=== PATIENT | male | born 1960 | race Caucasian/White ===

== ENCOUNTER 2018-04-26 11:17 | Inpatient (IN) ==
[2018-04-26] MEDS ORDERED: THIAMINE 200 MG/2 ML VIAL IV STA (11:46)
[2018-04-26 12:40] LABS: Basophils % 0.6 % (0.0-0.8); Eosinophils % 0.6 % (0.00-10.9); Hematocrit 23.7 VOL% (42.0-52.0); Hemoglobin 7.1 GM/DL (14.0-18.0); Immature Granulocytes % 0.6 %; Immature Granulocytes Absolute 0.03 #; Lymphocytes # 0.7 10*3/uL (1.4-4.0); Lymphocytes % 14.2 % (21.2-54.2); Mean Corpuscular Hemoglobin 29 PG (27-34); Mean Corpuscular Volume 97.9 FL (87-102); Monocytes # 0.5 10*3/uL (0.11-0.8); Monocytes % 9.9 % (1.7-12.7); Neutrophils # 3.5 10*3/uL (1.4-7.4); Neutrophils % 74.1 % (38.7-73.9); Red Blood Count 2.42 MC/CUMM (3.8-5.5); Red Cell Distribution Width 20.6 % (9.3-17.3); White Blood Count 4.7 T/CUMM (4-12)
[2018-04-26 12:44] LABS: Platelet Count 28 T/CUMM (130-400)
[2018-04-26 12:48] LABS: INR 1.5; PT Patient Result 16.4 SECS; Partial Thromboplastin Time 31.5 SECS (0-40)
[2018-04-26 12:58] LABS: Apearance,Urine CLOUDY (Clear); Bacteria,Urine Many /HPF (Few); Bilirubin,Urine Negative (Negative); Blood, Urine Large mg/dL (Negative); Glucose,Urine (UA) 150 mg/dL (Negative); Ketones,Urine Negative (Negative); Mucus,Urine Occasional /LPF (Occasional); Nitrite,Urine Positive (Negative); Protein,Urine 100 MG/DL; RBC,Urine 101 /HPF (0-4); Squamous Epithelial Cell,Urine Occasional /HPF (0-10); Urine Color Amber (Yellow); Urine Specific Gravity 1.019 (1.001-1.035); Urine Urobilinogen < 2.0 EU/DL (0.2-1.0); WBC,Urine 348 /HPF (0-6)
[2018-04-26 13:04] LABS: Hypochromasia 1+
[2018-04-26 13:05] LABS: Acanthocytes Few; Anisocytosis 1+; Microcytosis 1+; Platelet Estimate Decreased; Polychromasia Slight
[2018-04-26 13:07] LABS: Albumin 2.2 G/DL (3.4-5.0); Bilirubin,Total 11.3 MG/DL (0.2-1.0); Calcium 7.9 MG/DL (8.5-10.1); Osmolality,Calculated 295.4 MOS/KG (273-304); Potassium 3.6 MMOL/L (3.5-5.1); Thyroid Stimulating Hormone 2.32 uIU/ml (0.358-3.74)
[2018-04-26 13:24] LABS: Barbiturates Screen,Urine Negative (Negative); Benzodiazepines Screen,Urine Positive (Negative); Cannabinoid Screen,Urine Negative (Negative); Opiate Screen,Urine Negative (Negative); Phencyclidine Screen,Urine Negative (Negative)
[2018-04-26] MEDS ORDERED: cefTRIAXone 2,000 MG in SODIUM CHLORIDE 0.9% 100 ML IV ONE (14:09)
[2018-04-26] MEDS ORDERED: MAGNESIUM SULF RIDER 2 GM in PREMIX 1 EACH IV STA (14:10)
[2018-04-26] MEDS ORDERED: SODIUM CHLORIDE 0.9% 100 ML IV ONE (14:22)
[2018-04-26] MEDS ORDERED: cefTRIAXone 1,000 MG VIAL ONE (14:22)
[2018-04-26 14:39] LABS: Lactic Acid 2.4 MMOL/L (0.4-2.0)
[2018-04-26] MEDS ORDERED: DEXTROSE 50% 25 GM/50 ML SYRINGE IV PRN (14:58)
[2018-04-26] MEDS ORDERED: GLUCAGON 1 MG VIAL IM PRN (14:58)
[2018-04-26] MEDS ORDERED: POTASSIUM CHLORIDE INJ 10 MEQ in DEXTROSE 5% LACTATED RINGERS 1,000 ML IV SCH (15:00)
[2018-04-26 15:39] LABS: % Iron Saturation 30.9 % (18-50)
[2018-04-26] MEDS ORDERED: SODIUM CHLORIDE 0.9% 1,000 ML IV PRN (16:03)
[2018-04-26] MEDS: INSULIN NPH 100 UNIT/ML SUBCUT SCH (18:35)
[2018-04-26] MEDS: THIAMINE 200 MG/2 ML VIAL IV SCH (18:35)
[2018-04-26] MEDS: INSULIN REGULAR 100 UNIT/ML SUBCUT SCH (18:35)
[2018-04-26] MEDS ORDERED: LACTULOSE 20 GM/30 ML UDCUP PO SCH (21:00)
[2018-04-26] MEDS ORDERED: MAGNESIUM SULF RIDER 4 GM in PREMIX 1 EACH IV PRN (22:10)
[2018-04-26] MEDS ORDERED: POTASSIUM CHLORIDE RIDER 10 MEQ in PREMIX 1 EACH IV PRN (22:11)
[2018-04-26] MEDS: LORazepam 2 MG/1 ML VIAL IV PRN (23:00)
[2018-04-26] MEDS: RIFAXIMIN 550 MG TABLET PO SCH (23:05)
[2018-04-26] MEDS: PANTOPRAZOLE 40 MG VIAL IV SCH (23:05)
[2018-04-26] MEDS: POTASSIUM CHLORIDE INJ 10 MEQ in LACTATED RINGERS 1,000 ML IV SCH (23:30)
[2018-04-27] MEDS: INSULIN REGULAR 100 UNIT/ML SUBCUT SCH ×4 (01:03→20:00)
[2018-04-27] MEDS: MORPHINE 4 MG/1 ML VIAL IV PRN ×2 (01:04→22:03)
[2018-04-27] MEDS ORDERED: SODIUM CHLORIDE 0.9% 500 ML IV ONE (03:04)
[2018-04-27] MEDS: INSULIN NPH 100 UNIT/ML SUBCUT SCH ×2 (03:16→16:15)
[2018-04-27 03:51] LABS: INR 1.5; PT Patient Result 16.6 SECS
[2018-04-27 03:58] LABS: Basophils % 0.7 % (0.0-0.8); Eosinophils # 0.1 10*3/uL (0.0-0.87); Eosinophils % 1.3 % (0.00-10.9); Hematocrit 25.4 VOL% (42.0-52.0); Hemoglobin 7.6 GM/DL (14.0-18.0); Immature Granulocytes % 1.3 %; Immature Granulocytes Absolute 0.07 #; Lymphocytes # 0.5 10*3/uL (1.4-4.0); Lymphocytes % 8.2 % (21.2-54.2); Mean Corpuscular HGB Conc 29.9 GM/DL (32-36); Mean Corpuscular Hemoglobin 30 PG (27-34); Mean Corpuscular Volume 98.8 FL (87-102); Monocytes # 0.3 10*3/uL (0.11-0.8); Monocytes % 5.8 % (1.7-12.7); Neutrophils # 4.5 10*3/uL (1.4-7.4); Neutrophils % 82.7 % (38.7-73.9); Red Blood Count 2.57 MC/CUMM (3.8-5.5); Red Cell Distribution Width 21.3 % (9.3-17.3); White Blood Count 5.5 T/CUMM (4-12)
[2018-04-27 04:13] LABS: Albumin 2.5 G/DL (3.4-5.0); Calcium 8.3 MG/DL (8.5-10.1); Potassium 3.6 MMOL/L (3.5-5.1); Total Protein 5.2 G/DL (6.4-8.3)
[2018-04-27 04:20] LABS: Platelet Count 25 T/CUMM (130-400)
[2018-04-27 04:29] LABS: Bilirubin,Total 13.2 MG/DL (0.2-1.0)
[2018-04-27 04:55] LABS: Anisocytosis 1+; Hypochromasia 1+; Microcytosis 1+
[2018-04-27 04:57] LABS: Acanthocytes Few; Platelet Estimate Decreased; Polychromasia Slight
[2018-04-27] MEDS: MAGNESIUM SULF RIDER 2 GM in PREMIX 1 EACH IV PRN (06:24)
[2018-04-27] MEDS: SPIRONOLACTONE 100 MG TABLET PO SCH ×2 (09:59→14:10)
[2018-04-27] MEDS: chlordiazePOXIDE 10 MG CAPSULE PO SCH ×4 (09:59→20:04)
[2018-04-27] MEDS: LACTULOSE 20 GM/30 ML UDCUP PO SCH ×5 (09:59→20:03)
[2018-04-27] MEDS: PANTOPRAZOLE 40 MG VIAL IV SCH ×2 (10:00→20:04)
[2018-04-27] MEDS: RIFAXIMIN 550 MG TABLET PO SCH ×3 (10:00→20:04)
[2018-04-27] MEDS: THIAMINE 200 MG/2 ML VIAL IV SCH (10:02)
[2018-04-27] MEDS: cefTRIAXone 1,000 MG in SYRINGE 1 EACH IV SCH (10:04)
[2018-04-27 11:44] LABS: Hepatitis A Ab IgM Quant 0.11 Index; Hepatitis A Ab IgM Result Negative (Negative); Hepatitis B Core IgM Quant < 0.05 Index; Hepatitis B Core IgM Result Negative (Negative); Hepatitis B Surface Ag Quant < 0.10 Index; Hepatitis B Surface Ag Result Negative (Negative); Hepatitis C Virus Ab Quant > 11.00 Index; Hepatitis C Virus Ab Result Positive (Negative)
[2018-04-27] MEDS: POTASSIUM CHLORIDE INJ 10 MEQ in LACTATED RINGERS 1,000 ML IV SCH (14:52)
[2018-04-27] MEDS ORDERED: INFLUENZA VIRUS VACCINE 0.5 ML SYRINGE IM ONE (17:49)
[2018-04-28] MEDS: LORazepam 2 MG/1 ML VIAL IV PRN
[2018-04-28] MEDS: LACTULOSE 20 GM/30 ML UDCUP PO SCH ×6 (01:28→21:32)
[2018-04-28] MEDS: INSULIN REGULAR 100 UNIT/ML SUBCUT SCH ×4 (01:28→17:26)
[2018-04-28] MEDS: POTASSIUM CHLORIDE INJ 10 MEQ in LACTATED RINGERS 1,000 ML IV SCH ×2 (03:39→17:21)
[2018-04-28] MEDS: INSULIN NPH 100 UNIT/ML SUBCUT SCH ×2 (05:06→15:43)
[2018-04-28 08:00] LABS: Basophils # 0.1 10*3/uL (0.0-0.2); Basophils % 1.2 % (0.0-0.8); Eosinophils # 0.1 10*3/uL (0.0-0.87); Eosinophils % 2.4 % (0.00-10.9); Hematocrit 25.5 VOL% (42.0-52.0); Hemoglobin 7.4 GM/DL (14.0-18.0); Immature Granulocytes % 1.6 %; Immature Granulocytes Absolute 0.09 #; Lymphocytes % 17.3 % (21.2-54.2); Mean Corpuscular Hemoglobin 30 PG (27-34); Mean Corpuscular Volume 102.8 FL (87-102); Monocytes # 0.6 10*3/uL (0.11-0.8); Monocytes % 10.1 % (1.7-12.7); Neutrophils # 3.9 10*3/uL (1.4-7.4); Neutrophils % 67.4 % (38.7-73.9); Red Blood Count 2.48 MC/CUMM (3.8-5.5); Red Cell Distribution Width 22.1 % (9.3-17.3); White Blood Count 5.7 T/CUMM (4-12)
[2018-04-28 08:03] LABS: Platelet Count 39 T/CUMM (130-400)
[2018-04-28 08:10] LABS: Calcium 8.1 MG/DL (8.5-10.1)
[2018-04-28] MEDS: SPIRONOLACTONE 100 MG TABLET PO SCH (08:18)
[2018-04-28 08:19] LABS: Albumin 2.2 G/DL (3.4-5.0); Bilirubin,Direct 4.76 MG/DL (0.0-0.20); Bilirubin,Indirect 5.8 MG/DL (0.0-1.0); Bilirubin,Total 10.6 MG/DL (0.2-1.0); Total Protein 4.9 G/DL (6.4-8.3)
[2018-04-28] MEDS: THIAMINE 200 MG/2 ML VIAL IV SCH (08:19)
[2018-04-28] MEDS: PANTOPRAZOLE 40 MG VIAL IV SCH ×2 (08:19→21:31)
[2018-04-28] MEDS: cefTRIAXone 1,000 MG in SYRINGE 1 EACH IV SCH (08:20)
[2018-04-28] MEDS: RIFAXIMIN 550 MG TABLET PO SCH ×2 (08:20→21:32)
[2018-04-28 08:22] LABS: Hypochromasia 1+; Microcytosis 1+; Platelet Estimate Decreased
[2018-04-28] MEDS: chlordiazePOXIDE 10 MG CAPSULE PO SCH ×3 (09:22→21:32)
[2018-04-28] MEDS: LEVOFLOXACIN 500 MG TABLET PO SCH (15:39)
[2018-04-28] MEDS ORDERED: PHENYLEPHRINE DRIP 40 MG/250 ML PREMIX IV PRN (17:23)
[2018-04-29] MEDS: INSULIN REGULAR 100 UNIT/ML SUBCUT SCH ×4 (00:28→18:42)
[2018-04-29] MEDS: LACTULOSE 20 GM/30 ML UDCUP PO SCH ×6 (00:33→21:05)
[2018-04-29] MEDS: INSULIN NPH 100 UNIT/ML SUBCUT SCH ×2 (02:40→15:11)
[2018-04-29 06:20] LABS: Basophils # 0.1 10*3/uL (0.0-0.2); Basophils % 1.2 % (0.0-0.8); Eosinophils # 0.1 10*3/uL (0.0-0.87); Eosinophils % 2.2 % (0.00-10.9); Hematocrit 24.4 VOL% (42.0-52.0); Hemoglobin 7.4 GM/DL (14.0-18.0); Immature Granulocytes % 1.8 %; Immature Granulocytes Absolute 0.09 #; Lymphocytes % 20.2 % (21.2-54.2); Mean Corpuscular HGB Conc 30.3 GM/DL (32-36); Mean Corpuscular Hemoglobin 30 PG (27-34); Mean Corpuscular Volume 97.6 FL (87-102); Monocytes # 0.6 10*3/uL (0.11-0.8); Neutrophils # 3.1 10*3/uL (1.4-7.4); Neutrophils % 62.6 % (38.7-73.9); Platelet Count 40 T/CUMM (130-400)
[2018-04-29 06:42] LABS: Calcium 8.2 MG/DL (8.5-10.1); Osmolality,Calculated 277.4 MOS/KG (273-304); Potassium 3.9 MMOL/L (3.5-5.1)
[2018-04-29 06:46] LABS: Hypochromasia 1+; Microcytosis Slight; Ovalocytes Slight; Platelet Estimate Decreased
[2018-04-29 07:16] LABS: Albumin 2.3 G/DL (3.4-5.0); Bilirubin,Direct 4.5 MG/DL (0.0-0.20); Bilirubin,Indirect 5.3 MG/DL (0.0-1.0); Bilirubin,Total 9.8 MG/DL (0.2-1.0); Total Protein 4.9 G/DL (6.4-8.3)
[2018-04-29] MEDS: POTASSIUM CHLORIDE INJ 10 MEQ in LACTATED RINGERS 1,000 ML IV SCH ×2 (08:17)
[2018-04-29] MEDS: PANTOPRAZOLE 40 MG VIAL IV SCH ×2 (08:43→21:13)
[2018-04-29] MEDS: RIFAXIMIN 550 MG TABLET PO SCH ×2 (08:44→21:13)
[2018-04-29] MEDS: SPIRONOLACTONE 100 MG TABLET PO SCH (08:44)
[2018-04-29] MEDS: chlordiazePOXIDE 10 MG CAPSULE PO SCH ×3 (08:44→21:13)
[2018-04-29] MEDS: THIAMINE 200 MG/2 ML VIAL IV SCH (08:44)
[2018-04-29] MEDS: cefTRIAXone 1,000 MG in SYRINGE 1 EACH IV SCH (08:45)
[2018-04-29] MEDS: LEVOFLOXACIN 500 MG TABLET PO SCH (10:02)
[2018-04-29] MEDS: MORPHINE 4 MG/1 ML VIAL IV PRN (18:53)
[2018-04-30] MEDS: INSULIN REGULAR 100 UNIT/ML SUBCUT SCH ×4 (00:20→17:35)
[2018-04-30] MEDS: LACTULOSE 20 GM/30 ML UDCUP PO SCH ×6 (00:20→20:26)
[2018-04-30] MEDS: INSULIN NPH 100 UNIT/ML SUBCUT SCH ×2 (03:45→14:48)
[2018-04-30 04:10] LABS: Basophils # 0.1 10*3/uL (0.0-0.2); Basophils % 1.1 % (0.0-0.8); Eosinophils # 0.1 10*3/uL (0.0-0.87); Eosinophils % 2.1 % (0.00-10.9); Hematocrit 24.9 VOL% (42.0-52.0); Hemoglobin 7.7 GM/DL (14.0-18.0); Immature Granulocytes % 2.9 %; Immature Granulocytes Absolute 0.15 #; Lymphocytes # 1.3 10*3/uL (1.4-4.0); Lymphocytes % 25.1 % (21.2-54.2); Mean Corpuscular HGB Conc 30.9 GM/DL (32-36); Mean Corpuscular Hemoglobin 30 PG (27-34); Mean Corpuscular Volume 97.3 FL (87-102); Mean Platelet Volume 11.4 FL (9.6-12.0); Monocytes # 0.7 10*3/uL (0.11-0.8); Monocytes % 12.6 % (1.7-12.7); Neutrophils # 2.9 10*3/uL (1.4-7.4); Neutrophils % 56.2 % (38.7-73.9); Red Blood Count 2.56 MC/CUMM (3.8-5.5); Red Cell Distribution Width 22.2 % (9.3-17.3); White Blood Count 5.2 T/CUMM (4-12)
[2018-04-30 04:14] LABS: Platelet Count 44 T/CUMM (130-400)
[2018-04-30 04:34] LABS: Albumin 2.1 G/DL (3.4-5.0); Osmolality,Calculated 279.5 MOS/KG (273-304); Potassium 4.1 MMOL/L (3.5-5.1); Total Protein 4.9 G/DL (6.4-8.3)
[2018-04-30] MEDS: POTASSIUM CHLORIDE INJ 10 MEQ in LACTATED RINGERS 1,000 ML IV SCH ×2 (05:29→19:41)
[2018-04-30] MEDS: SPIRONOLACTONE 100 MG TABLET PO SCH (08:12)
[2018-04-30] MEDS: chlordiazePOXIDE 10 MG CAPSULE PO SCH ×3 (08:12→20:29)
[2018-04-30] MEDS: LEVOFLOXACIN 500 MG TABLET PO SCH (08:12)
[2018-04-30] MEDS: RIFAXIMIN 550 MG TABLET PO SCH ×2 (08:12→20:25)
[2018-04-30] MEDS: PANTOPRAZOLE 40 MG VIAL IV SCH ×2 (08:12→20:24)
[2018-04-30] MEDS: cefTRIAXone 1,000 MG in SYRINGE 1 EACH IV SCH (08:12)
[2018-04-30] MEDS: MORPHINE 4 MG/1 ML VIAL IV PRN ×2 (09:40→20:25)
[2018-05-01] MEDS: LACTULOSE 20 GM/30 ML UDCUP PO SCH ×6 (00:09→20:39)
[2018-05-01] MEDS: MORPHINE 4 MG/1 ML VIAL IV PRN ×2 (00:09→03:52)
[2018-05-01] MEDS: INSULIN REGULAR 100 UNIT/ML SUBCUT SCH ×5 (00:10→23:30)
[2018-05-01] MEDS: INSULIN NPH 100 UNIT/ML SUBCUT SCH ×2 (03:46→19:17)
[2018-05-01] MEDS: SPIRONOLACTONE 100 MG TABLET PO SCH (09:53)
[2018-05-01] MEDS: RIFAXIMIN 550 MG TABLET PO SCH ×2 (09:54→20:39)
[2018-05-01] MEDS: PANTOPRAZOLE 40 MG VIAL IV SCH ×2 (09:54→20:39)
[2018-05-01] MEDS: chlordiazePOXIDE 10 MG CAPSULE PO SCH ×3 (09:54→20:39)
[2018-05-01] MEDS: LEVOFLOXACIN 500 MG TABLET PO SCH (09:54)
[2018-05-01] MEDS: NADOLOL 40 MG TABLET PO SCH (13:15)
[2018-05-01] MEDS: SUCRALFATE 1 GM TABLET PO SCH ×3 (13:15→23:30)
[2018-05-01] MEDS: LORazepam 2 MG/1 ML VIAL IV PRN (16:15)
[2018-05-02] MEDS: MORPHINE 4 MG/1 ML VIAL IV PRN ×3 (00:36→18:30)
[2018-05-02] MEDS: LACTULOSE 20 GM/30 ML UDCUP PO SCH ×6 (00:37→21:11)
[2018-05-02] MEDS: INSULIN NPH 100 UNIT/ML SUBCUT SCH ×2 (03:37→14:22)
[2018-05-02] MEDS: INSULIN REGULAR 100 UNIT/ML SUBCUT SCH ×3 (05:53→17:28)
[2018-05-02] MEDS: SUCRALFATE 1 GM TABLET PO SCH ×3 (05:54→17:28)
[2018-05-02 06:07] LABS: Albumin 2.2 G/DL (3.4-5.0); Bilirubin,Total 10.7 MG/DL (0.2-1.0); Calcium 8.1 MG/DL (8.5-10.1); Osmolality,Calculated 273.8 MOS/KG (273-304); Potassium 4.5 MMOL/L (3.5-5.1); Total Protein 4.9 G/DL (6.4-8.3)
[2018-05-02 06:15] LABS: Basophils # 0.1 10*3/uL (0.0-0.2); Basophils % 0.8 % (0.0-0.8); Eosinophils # 0.1 10*3/uL (0.0-0.87); Eosinophils % 1.5 % (0.00-10.9); Hemoglobin 7.4 GM/DL (14.0-18.0); Immature Granulocytes % 1.8 %; Immature Granulocytes Absolute 0.13 #; Lymphocytes # 1.1 10*3/uL (1.4-4.0); Lymphocytes % 14.4 % (21.2-54.2); Mean Corpuscular HGB Conc 30.8 GM/DL (32-36); Mean Corpuscular Hemoglobin 30 PG (27-34); Mean Corpuscular Volume 97.2 FL (87-102); Mean Platelet Volume 11.1 FL (9.6-12.0); Monocytes # 0.6 10*3/uL (0.11-0.8); Monocytes % 8.7 % (1.7-12.7); Neutrophils # 5.4 10*3/uL (1.4-7.4); Neutrophils % 72.8 % (38.7-73.9); Red Blood Count 2.47 MC/CUMM (3.8-5.5); Red Cell Distribution Width 22.1 % (9.3-17.3); White Blood Count 7.4 T/CUMM (4-12)
[2018-05-02 06:38] LABS: Platelet Count 33 T/CUMM (130-400)
[2018-05-02] MEDS: PANTOPRAZOLE 40 MG VIAL IV SCH ×2 (08:14→21:11)
[2018-05-02] MEDS: RIFAXIMIN 550 MG TABLET PO SCH ×2 (08:14→21:11)
[2018-05-02] MEDS: LEVOFLOXACIN 500 MG TABLET PO SCH (08:14)
[2018-05-02] MEDS: SPIRONOLACTONE 100 MG TABLET PO SCH (08:14)
[2018-05-02] MEDS: chlordiazePOXIDE 10 MG CAPSULE PO SCH ×3 (08:35→21:11)
[2018-05-02] MEDS: NADOLOL 40 MG TABLET PO SCH (08:35)
[2018-05-02] MEDS ORDERED: METHYL SALICYLATE 60 ML BOTTLE TOP ONE (09:00)
[2018-05-02] MEDS: POTASSIUM CHLORIDE INJ 10 MEQ in LACTATED RINGERS 1,000 ML IV SCH (09:47)
[2018-05-02] MEDS: LORazepam 2 MG/1 ML VIAL IV PRN (21:24)
[2018-05-03] MEDS: LACTULOSE 20 GM/30 ML UDCUP PO SCH ×6 (00:14→20:47)
[2018-05-03] MEDS: INSULIN REGULAR 100 UNIT/ML SUBCUT SCH ×4 (00:14→17:28)
[2018-05-03] MEDS: SUCRALFATE 1 GM TABLET PO SCH ×4 (00:14→17:28)
[2018-05-03] MEDS: MORPHINE 4 MG/1 ML VIAL IV PRN ×3 (02:55→20:47)
[2018-05-03] MEDS: INSULIN NPH 100 UNIT/ML SUBCUT SCH ×2 (02:55→16:08)
[2018-05-03 06:33] LABS: Basophils # 0.1 10*3/uL (0.0-0.2); Basophils % 1.5 % (0.0-0.8); Eosinophils # 0.2 10*3/uL (0.0-0.87); Eosinophils % 3.5 % (0.00-10.9); Hematocrit 24.9 VOL% (42.0-52.0); Hemoglobin 7.7 GM/DL (14.0-18.0); Immature Granulocytes % 3.7 %; Immature Granulocytes Absolute 0.22 #; Lymphocytes # 1.4 10*3/uL (1.4-4.0); Mean Corpuscular HGB Conc 30.9 GM/DL (32-36); Mean Corpuscular Hemoglobin 30 PG (27-34); Mean Corpuscular Volume 97.6 FL (87-102); Mean Platelet Volume 9.9 FL (9.6-12.0); Monocytes # 0.7 10*3/uL (0.11-0.8); Neutrophils # 3.4 10*3/uL (1.4-7.4); Neutrophils % 57.3 % (38.7-73.9); Red Blood Count 2.55 MC/CUMM (3.8-5.5)
[2018-05-03 06:38] LABS: Platelet Count 36 T/CUMM (130-400)
[2018-05-03 06:55] LABS: Bilirubin,Total 7.8 MG/DL (0.2-1.0); Calcium 8.1 MG/DL (8.5-10.1); Osmolality,Calculated 271.7 MOS/KG (273-304); Potassium 4.3 MMOL/L (3.5-5.1)
[2018-05-03] MEDS: PANTOPRAZOLE 40 MG VIAL IV SCH ×2 (08:52→20:47)
[2018-05-03] MEDS: NADOLOL 40 MG TABLET PO SCH (08:57)
[2018-05-03] MEDS: LEVOFLOXACIN 500 MG TABLET PO SCH (08:58)
[2018-05-03] MEDS: RIFAXIMIN 550 MG TABLET PO SCH ×2 (08:58→20:46)
[2018-05-03] MEDS: SPIRONOLACTONE 100 MG TABLET PO SCH (08:58)
[2018-05-03] MEDS: chlordiazePOXIDE 10 MG CAPSULE PO SCH ×3 (08:58→20:46)
[2018-05-03 10:06] LABS: Band Neutrophils 1 % (0-10); Lymphocytes 21 % (20-55); Segmented Neutrophils 75 % (50-85); Total Cells Counted 100
[2018-05-03 10:07] LABS: Hypochromasia 1+; Ovalocytes Slight; Platelet Estimate Decreased; Polychromasia Few; Schistocytes Few
[2018-05-04] MEDS: SUCRALFATE 1 GM TABLET PO SCH ×4 (00:37→18:05)
[2018-05-04] MEDS: LACTULOSE 20 GM/30 ML UDCUP PO SCH ×6 (00:37→22:42)
[2018-05-04] MEDS: MORPHINE 4 MG/1 ML VIAL IV PRN ×5 (00:37→22:57)
[2018-05-04] MEDS: INSULIN REGULAR 100 UNIT/ML SUBCUT SCH ×4 (01:06→19:22)
[2018-05-04] MEDS: INSULIN NPH 100 UNIT/ML SUBCUT SCH ×2 (03:17→15:44)
[2018-05-04 05:09] LABS: Basophils # 0.1 10*3/uL (0.0-0.2); Basophils % 1.4 % (0.0-0.8); Eosinophils # 0.1 10*3/uL (0.0-0.87); Eosinophils % 2.8 % (0.00-10.9); Hematocrit 25.2 VOL% (42.0-52.0); Hemoglobin 7.8 GM/DL (14.0-18.0); Immature Granulocytes Absolute 0.15 #; Lymphocytes # 1.6 10*3/uL (1.4-4.0); Mean Corpuscular Hemoglobin 30 PG (27-34); Mean Corpuscular Volume 97.7 FL (87-102); Monocytes # 0.6 10*3/uL (0.11-0.8); Neutrophils # 2.5 10*3/uL (1.4-7.4); Neutrophils % 49.8 % (38.7-73.9); Red Blood Count 2.58 MC/CUMM (3.8-5.5); Red Cell Distribution Width 21.2 % (9.3-17.3)
[2018-05-04 05:45] LABS: Platelet Count 42 T/CUMM (130-400)
[2018-05-04 06:41] LABS: Albumin 1.9 G/DL (3.4-5.0); Bilirubin,Direct 3.83 MG/DL (0.0-0.20); Bilirubin,Indirect 4.2 MG/DL (0.0-1.0); Calcium 7.9 MG/DL (8.5-10.1); Osmolality,Calculated 274.8 MOS/KG (273-304); Potassium 4.4 MMOL/L (3.5-5.1); Total Protein 4.8 G/DL (6.4-8.3)
[2018-05-04 07:42] LABS: Band Neutrophils 2 % (0-10); Eosinophils 5 % (0-10); Lymphocytes 21 % (20-55); Metamyelocytes 1 %; Myelocytes 1 %; Segmented Neutrophils 61 % (50-85)
[2018-05-04 07:43] LABS: Hypochromasia 1+; Platelet Estimate Decreased
[2018-05-04 07:44] LABS: Total Cells Counted 100
[2018-05-04] MEDS: LORazepam 2 MG/1 ML VIAL IV PRN (07:50)
[2018-05-04] MEDS: LEVOFLOXACIN 500 MG TABLET PO SCH (08:29)
[2018-05-04] MEDS: NADOLOL 40 MG TABLET PO SCH (08:29)
[2018-05-04] MEDS: RIFAXIMIN 550 MG TABLET PO SCH ×2 (08:29→22:42)
[2018-05-04] MEDS: PANTOPRAZOLE 40 MG VIAL IV SCH ×2 (08:29→22:43)
[2018-05-04] MEDS: SPIRONOLACTONE 100 MG TABLET PO SCH (08:33)
[2018-05-04] MEDS: MAGNESIUM SULF RIDER 2 GM in PREMIX 1 EACH IV PRN (08:35)
[2018-05-04] MEDS: chlordiazePOXIDE 10 MG CAPSULE PO SCH ×2 (10:38→15:44)
[2018-05-05] MEDS: LACTULOSE 20 GM/30 ML UDCUP PO SCH ×7 (01:08→20:56)
[2018-05-05] MEDS: SUCRALFATE 1 GM TABLET PO SCH ×4 (01:08→18:45)
[2018-05-05] MEDS: INSULIN REGULAR 100 UNIT/ML SUBCUT SCH ×5 (01:35→22:44)
[2018-05-05] MEDS: INSULIN NPH 100 UNIT/ML SUBCUT SCH ×2 (03:01→16:44)
[2018-05-05 06:33] LABS: Basophils # 0.1 10*3/uL (0.0-0.2); Basophils % 1.2 % (0.0-0.8); Eosinophils # 0.1 10*3/uL (0.0-0.87); Eosinophils % 1.7 % (0.00-10.9); Hematocrit 27.4 VOL% (42.0-52.0); Hemoglobin 8.7 GM/DL (14.0-18.0); Immature Granulocytes % 1.5 %; Immature Granulocytes Absolute 0.06 #; Lymphocytes # 1.1 10*3/uL (1.4-4.0); Mean Corpuscular HGB Conc 31.8 GM/DL (32-36); Mean Corpuscular Hemoglobin 30 PG (27-34); Mean Corpuscular Volume 95.5 FL (87-102); Mean Platelet Volume 12.4 FL (9.6-12.0); Monocytes # 0.4 10*3/uL (0.11-0.8); Monocytes % 10.4 % (1.7-12.7); Neutrophils # 2.3 10*3/uL (1.4-7.4); Neutrophils % 57.2 % (38.7-73.9); Platelet Count 43 T/CUMM (130-400); Red Blood Count 2.87 MC/CUMM (3.8-5.5); Red Cell Distribution Width 20.6 % (9.3-17.3)
[2018-05-05 06:50] LABS: Alanine Aminotransferase 18 U/L (16-61); Alkaline Phosphatase 145 U/L (45-117); Aspartate Amino Transferase 56 U/L (0-37); Bilirubin,Indirect 5.7 MG/DL (0.0-1.0); Blood Urea Nitrogen 7 MG/DL (7-18); Calcium 8.4 MG/DL (8.5-10.1); Glucose 105 MG/DL (74-106); Osmolality,Calculated 272.7 MOS/KG (273-304); Potassium 4.6 MMOL/L (3.5-5.1); Sodium 138 MMOL/L (136-145); Total Protein 4.9 G/DL (6.4-8.3)
[2018-05-05 06:51] LABS: Ammonia < 10 UMOL/L (11-32)
[2018-05-05 06:57] LABS: Band Neutrophils 1 % (0-10); Eosinophils 3 % (0-10); Hypochromasia 1+; Lymphocytes 29 % (20-55); Ovalocytes Slight; Platelet Estimate Decreased; Segmented Neutrophils 60 % (50-85); Total Cells Counted 100
[2018-05-05] MEDS: PANTOPRAZOLE 40 MG VIAL IV SCH ×2 (10:08→20:55)
[2018-05-05] MEDS: LEVOFLOXACIN 500 MG TABLET PO SCH (10:09)
[2018-05-05] MEDS: NADOLOL 40 MG TABLET PO SCH (10:09)
[2018-05-05] MEDS: RIFAXIMIN 550 MG TABLET PO SCH ×2 (10:10→20:56)
[2018-05-05] MEDS: SPIRONOLACTONE 100 MG TABLET PO SCH (10:10)
[2018-05-05] MEDS: MAGNESIUM SULF RIDER 2 GM in PREMIX 1 EACH IV PRN (12:38)
[2018-05-05] MEDS: traMADol 50 MG TABLET PO PRN (13:51)
[2018-05-05] MEDS: MORPHINE 4 MG/1 ML VIAL IV PRN (22:54)
[2018-05-06] MEDS ORDERED: LORazepam 2 MG/1 ML VIAL IV ONE (00:07)
[2018-05-06] MEDS: SUCRALFATE 1 GM TABLET PO SCH ×4 (00:42→17:20)
[2018-05-06] MEDS: INSULIN REGULAR 100 UNIT/ML SUBCUT SCH ×5 (01:42→20:52)
[2018-05-06] MEDS: INSULIN NPH 100 UNIT/ML SUBCUT SCH ×2 (02:01→16:28)
[2018-05-06] MEDS: MORPHINE 4 MG/1 ML VIAL IV PRN ×2 (04:36→20:52)
[2018-05-06] MEDS: LACTULOSE 20 GM/30 ML UDCUP PO SCH ×4 (04:37→20:51)
[2018-05-06 05:28] LABS: Basophils # 0.1 10*3/uL (0.0-0.2); Basophils % 1.6 % (0.0-0.8); Eosinophils # 0.1 10*3/uL (0.0-0.87); Eosinophils % 2.4 % (0.00-10.9); Hematocrit 25.3 VOL% (42.0-52.0); Hemoglobin 7.8 GM/DL (14.0-18.0); Immature Granulocytes % 1.6 %; Immature Granulocytes Absolute 0.06 #; Lymphocytes # 1.3 10*3/uL (1.4-4.0); Lymphocytes % 35.3 % (21.2-54.2); Mean Corpuscular HGB Conc 30.8 GM/DL (32-36); Mean Corpuscular Hemoglobin 30 PG (27-34); Mean Corpuscular Volume 98.4 FL (87-102); Mean Platelet Volume 11.2 FL (9.6-12.0); Monocytes # 0.5 10*3/uL (0.11-0.8); Monocytes % 14.4 % (1.7-12.7); Neutrophils # 1.7 10*3/uL (1.4-7.4); Neutrophils % 44.7 % (38.7-73.9); Platelet Count 40 T/CUMM (130-400); Red Blood Count 2.57 MC/CUMM (3.8-5.5); Red Cell Distribution Width 20.3 % (9.3-17.3); White Blood Count 3.7 T/CUMM (4-12)
[2018-05-06 05:42] LABS: Calcium 7.8 MG/DL (8.5-10.1); Osmolality,Calculated 279.4 MOS/KG (273-304)
[2018-05-06 05:53] LABS: Anisocytosis 1+; Hypochromasia 1+; Platelet Estimate Decreased
[2018-05-06] MEDS: PANTOPRAZOLE 40 MG VIAL IV SCH ×2 (08:47→20:51)
[2018-05-06] MEDS: RIFAXIMIN 550 MG TABLET PO SCH ×2 (08:54→20:51)
[2018-05-06] MEDS: MAGNESIUM SULF RIDER 2 GM in PREMIX 1 EACH IV PRN (08:55)
[2018-05-06] MEDS: NADOLOL 40 MG TABLET PO SCH (09:46)
[2018-05-06] MEDS: SPIRONOLACTONE 100 MG TABLET PO SCH (12:11)
[2018-05-06] MEDS: BACITRACIN OINT 0.9 GM PACK TOP SCH (16:29)
[2018-05-07] MEDS: SUCRALFATE 1 GM TABLET PO SCH ×2 (01:42→06:53)
[2018-05-07] MEDS: LACTULOSE 20 GM/30 ML UDCUP PO SCH ×3 (02:38→16:37)
[2018-05-07] MEDS: traMADol 50 MG TABLET PO PRN ×2 (02:43→16:41)
[2018-05-07] MEDS: INSULIN NPH 100 UNIT/ML SUBCUT SCH ×2 (02:47→16:36)
[2018-05-07 05:37] LABS: Basophils # 0.1 10*3/uL (0.0-0.2); Basophils % 2.1 % (0.0-0.8); Eosinophils # 0.1 10*3/uL (0.0-0.87); Eosinophils % 3.2 % (0.00-10.9); Hematocrit 25.5 VOL% (42.0-52.0); Hemoglobin 7.7 GM/DL (14.0-18.0); Immature Granulocytes % 1.1 %; Immature Granulocytes Absolute 0.03 #; Lymphocytes # 1.1 10*3/uL (1.4-4.0); Lymphocytes % 37.5 % (21.2-54.2); Mean Corpuscular HGB Conc 30.2 GM/DL (32-36); Mean Corpuscular Hemoglobin 30 PG (27-34); Mean Corpuscular Volume 98.8 FL (87-102); Mean Platelet Volume 10.4 FL (9.6-12.0); Monocytes # 0.4 10*3/uL (0.11-0.8); Monocytes % 13.3 % (1.7-12.7); Neutrophils # 1.2 10*3/uL (1.4-7.4); Neutrophils % 42.8 % (38.7-73.9); Platelet Count 40 T/CUMM (130-400); Red Blood Count 2.58 MC/CUMM (3.8-5.5); Red Cell Distribution Width 19.8 % (9.3-17.3); White Blood Count 2.9 T/CUMM (4-12)
[2018-05-07 06:07] LABS: Calcium 7.6 MG/DL (8.5-10.1); Osmolality,Calculated 276.4 MOS/KG (273-304); Potassium 4.3 MMOL/L (3.5-5.1)
[2018-05-07 06:10] LABS: Eosinophils 4 % (0-10); Hypochromasia 1+; Lymphocytes 36 % (20-55); Platelet Estimate Decreased; Segmented Neutrophils 45 % (50-85); Total Cells Counted 100
[2018-05-07] MEDS ORDERED: TUBERCULIN SKIN TEST 0.1 ML SYRINGE INTRADERM ONE (08:46)
[2018-05-07] MEDS: SPIRONOLACTONE 100 MG TABLET PO SCH (09:24)
[2018-05-07] MEDS: RIFAXIMIN 550 MG TABLET PO SCH ×2 (09:25→21:51)
[2018-05-07] MEDS: MAGNESIUM CHLORIDE 64 MG TABLET PO SCH ×2 (09:26→21:51)
[2018-05-07] MEDS: BACITRACIN OINT 0.9 GM PACK TOP SCH (09:27)
[2018-05-07] MEDS: NADOLOL 40 MG TABLET PO SCH (09:28)
[2018-05-07] MEDS: INSULIN REGULAR 100 UNIT/ML SUBCUT SCH ×4 (09:28→21:51)
[2018-05-07] MEDS: MORPHINE 4 MG/1 ML VIAL IV PRN (18:38)
[2018-05-07] MEDS: PANTOPRAZOLE 40 MG TABLET PO SCH (18:38)
[2018-05-08] MEDS: LACTULOSE 20 GM/30 ML UDCUP PO SCH ×3 (01:20→18:12)
[2018-05-08] MEDS: INSULIN NPH 100 UNIT/ML SUBCUT SCH ×2 (04:08→15:27)
[2018-05-08 06:21] LABS: INR 1.7; PT Patient Result 18.1 SECS
[2018-05-08 06:26] LABS: Albumin 1.8 G/DL (3.4-5.0); Bilirubin,Direct 3.24 MG/DL (0.0-0.20); Bilirubin,Indirect 3.6 MG/DL (0.0-1.0); Bilirubin,Total 6.8 MG/DL (0.2-1.0); Total Protein 4.8 G/DL (6.4-8.3)
[2018-05-08] MEDS: PANTOPRAZOLE 40 MG TABLET PO SCH ×2 (06:41→20:20)
[2018-05-08] MEDS: NADOLOL 40 MG TABLET PO SCH (10:04)
[2018-05-08] MEDS: SPIRONOLACTONE 100 MG TABLET PO SCH (10:06)
[2018-05-08] MEDS: RIFAXIMIN 550 MG TABLET PO SCH ×2 (10:06→20:20)
[2018-05-08] MEDS: MAGNESIUM CHLORIDE 64 MG TABLET PO SCH ×2 (10:06→20:20)
[2018-05-08] MEDS: INSULIN REGULAR 100 UNIT/ML SUBCUT SCH ×4 (10:07→20:20)
[2018-05-08] MEDS: BACITRACIN OINT 0.9 GM PACK TOP SCH (10:07)
[2018-05-08] MEDS: ONDANSETRON 4 MG/2 ML VIAL IV PRN (15:26)
[2018-05-08] MEDS: MORPHINE 4 MG/1 ML VIAL IV PRN (15:26)
[2018-05-09] MEDS: MORPHINE 4 MG/1 ML VIAL IV PRN (00:15)
[2018-05-09] MEDS: LACTULOSE 20 GM/30 ML UDCUP PO SCH ×3 (00:15→17:00)
[2018-05-09] MEDS: INSULIN NPH 100 UNIT/ML SUBCUT SCH ×2 (03:50→15:12)
[2018-05-09 05:32] LABS: Basophils # 0.1 10*3/uL (0.0-0.2); Basophils % 1.9 % (0.0-0.8); Eosinophils # 0.1 10*3/uL (0.0-0.87); Eosinophils % 2.9 % (0.00-10.9); Hematocrit 24.9 VOL% (42.0-52.0); Hemoglobin 7.6 GM/DL (14.0-18.0); Immature Granulocytes Absolute 0.03 #; Lymphocytes # 1.1 10*3/uL (1.4-4.0); Lymphocytes % 34.7 % (21.2-54.2); Mean Corpuscular HGB Conc 30.5 GM/DL (32-36); Mean Corpuscular Hemoglobin 30 PG (27-34); Mean Corpuscular Volume 97.6 FL (87-102); Mean Platelet Volume 11.9 FL (9.6-12.0); Monocytes # 0.4 10*3/uL (0.11-0.8); Monocytes % 13.4 % (1.7-12.7); Neutrophils # 1.5 10*3/uL (1.4-7.4); Neutrophils % 46.1 % (38.7-73.9); Platelet Count 46 T/CUMM (130-400); Red Blood Count 2.55 MC/CUMM (3.8-5.5); White Blood Count 3.1 T/CUMM (4-12)
[2018-05-09] MEDS: PANTOPRAZOLE 40 MG TABLET PO SCH (06:29)
[2018-05-09] MEDS: INSULIN REGULAR 100 UNIT/ML SUBCUT SCH ×3 (09:53→17:35)
[2018-05-09] MEDS: NADOLOL 40 MG TABLET PO SCH (10:14)
[2018-05-09] MEDS: MAGNESIUM CHLORIDE 64 MG TABLET PO SCH ×2 (10:15→23:44)
[2018-05-09] MEDS: RIFAXIMIN 550 MG TABLET PO SCH ×2 (10:15→23:41)
[2018-05-09] MEDS: SPIRONOLACTONE 100 MG TABLET PO SCH (10:15)
[2018-05-09] MEDS: BACITRACIN OINT 0.9 GM PACK TOP SCH (14:49)
[2018-05-09] MEDS ORDERED: SODIUM CHLORIDE 0.9% 1,000 ML IV PRN (16:01)
[2018-05-10] MEDS: INSULIN REGULAR 100 UNIT/ML SUBCUT SCH ×5 (03:59→23:26)
[2018-05-10] MEDS: PANTOPRAZOLE 40 MG TABLET PO SCH ×3 (03:59→18:04)
[2018-05-10] MEDS: LACTULOSE 20 GM/30 ML UDCUP PO SCH ×3 (04:01→17:09)
[2018-05-10] MEDS: INSULIN NPH 100 UNIT/ML SUBCUT SCH ×2 (07:15→17:09)
[2018-05-10 07:38] LABS: Eosinophils # 0.1 10*3/uL (0.0-0.87); Eosinophils % 2.6 % (0.00-10.9); Hematocrit 27.5 VOL% (42.0-52.0); Hemoglobin 8.7 GM/DL (14.0-18.0); Immature Granulocytes % 0.5 %; Immature Granulocytes Absolute 0.01 #; Lymphocytes # 0.8 10*3/uL (1.4-4.0); Lymphocytes % 38.3 % (21.2-54.2); Mean Corpuscular HGB Conc 31.6 GM/DL (32-36); Mean Corpuscular Hemoglobin 30 PG (27-34); Mean Corpuscular Volume 94.2 FL (87-102); Mean Platelet Volume 10.8 FL (9.6-12.0); Monocytes # 0.2 10*3/uL (0.11-0.8); Monocytes % 10.2 % (1.7-12.7); Neutrophils # 0.9 10*3/uL (1.4-7.4); Neutrophils % 46.4 % (38.7-73.9); Red Blood Count 2.92 MC/CUMM (3.8-5.5); Red Cell Distribution Width 18.9 % (9.3-17.3)
[2018-05-10 07:40] LABS: Platelet Count 39 T/CUMM (130-400)
[2018-05-10 07:53] LABS: Eosinophils 2 % (0-10); Hypochromasia 1+; Lymphocytes 28 % (20-55); Ovalocytes Slight; Platelet Estimate Decreased; Segmented Neutrophils 59 % (50-85); Total Cells Counted 100
[2018-05-10] MEDS: ONDANSETRON 4 MG/2 ML VIAL IV PRN ×2 (08:57→20:10)
[2018-05-10] MEDS: SPIRONOLACTONE 100 MG TABLET PO SCH (10:03)
[2018-05-10] MEDS: MAGNESIUM CHLORIDE 64 MG TABLET PO SCH (10:03)
[2018-05-10] MEDS: NADOLOL 40 MG TABLET PO SCH (10:03)
[2018-05-10] MEDS: RIFAXIMIN 550 MG TABLET PO SCH (10:03)
[2018-05-10] MEDS: BACITRACIN OINT 0.9 GM PACK TOP SCH (17:08)
[2018-05-10] MEDS: traMADol 50 MG TABLET PO PRN (22:27)
[2018-05-11] MEDS: RIFAXIMIN 550 MG TABLET PO SCH (01:07)
[2018-05-11] MEDS: MAGNESIUM CHLORIDE 64 MG TABLET PO SCH ×3 (01:07→21:38)
[2018-05-11] MEDS: LACTULOSE 20 GM/30 ML UDCUP PO SCH ×3 (02:20→16:07)
[2018-05-11] MEDS: INSULIN NPH 100 UNIT/ML SUBCUT SCH ×2 (05:31→16:07)
[2018-05-11] MEDS: PANTOPRAZOLE 40 MG TABLET PO SCH ×2 (07:07→18:19)
[2018-05-11] MEDS: INSULIN REGULAR 100 UNIT/ML SUBCUT SCH ×3 (07:11→16:17)
[2018-05-11] MEDS: SPIRONOLACTONE 100 MG TABLET PO SCH (08:25)
[2018-05-11] MEDS: NADOLOL 40 MG TABLET PO SCH (08:25)
[2018-05-11] MEDS: BACITRACIN OINT 0.9 GM PACK TOP SCH (08:26)
[2018-05-11] MEDS: NICOTINE 21 MG/24 HR PATCH TRANSDERM SCH (16:45)
[2018-05-11] MEDS: traMADol 50 MG TABLET PO PRN ×2 (16:50→23:19)
[2018-05-11] MEDS: ONDANSETRON 4 MG/2 ML VIAL IV PRN (18:19)
[2018-05-12] MEDS: INSULIN REGULAR 100 UNIT/ML SUBCUT SCH ×5 (02:04→21:48)
[2018-05-12] MEDS: INSULIN NPH 100 UNIT/ML SUBCUT SCH ×2 (04:12→17:43)
[2018-05-12] MEDS: LACTULOSE 20 GM/30 ML UDCUP PO SCH ×3 (04:26→17:43)
[2018-05-12 04:57] LABS: Basophils # 0.1 10*3/uL (0.0-0.2); Basophils % 1.4 % (0.0-0.8); Eosinophils # 0.1 10*3/uL (0.0-0.87); Eosinophils % 1.7 % (0.00-10.9); Hemoglobin 9.3 GM/DL (14.0-18.0); Immature Granulocytes % 0.6 %; Immature Granulocytes Absolute 0.02 #; Lymphocytes # 1.1 10*3/uL (1.4-4.0); Lymphocytes % 30.8 % (21.2-54.2); Mean Corpuscular Hemoglobin 29 PG (27-34); Mean Corpuscular Volume 94.6 FL (87-102); Mean Platelet Volume 11.5 FL (9.6-12.0); Monocytes # 0.4 10*3/uL (0.11-0.8); Monocytes % 10.7 % (1.7-12.7); Neutrophils # 1.9 10*3/uL (1.4-7.4); Neutrophils % 54.8 % (38.7-73.9); Red Blood Count 3.17 MC/CUMM (3.8-5.5); Red Cell Distribution Width 18.6 % (9.3-17.3); White Blood Count 3.5 T/CUMM (4-12)
[2018-05-12 05:05] LABS: Platelet Count 44 T/CUMM (130-400)
[2018-05-12 05:18] LABS: Calcium 7.7 MG/DL (8.5-10.1); Osmolality,Calculated 285.3 MOS/KG (273-304)
[2018-05-12] MEDS: NADOLOL 40 MG TABLET PO SCH (09:18)
[2018-05-12] MEDS: SPIRONOLACTONE 100 MG TABLET PO SCH (09:18)
[2018-05-12] MEDS: PANTOPRAZOLE 40 MG TABLET PO SCH ×2 (09:22→18:24)
[2018-05-12] MEDS: NICOTINE 21 MG/24 HR PATCH TRANSDERM SCH (09:22)
[2018-05-12] MEDS: BACITRACIN OINT 0.9 GM PACK TOP SCH (09:22)
[2018-05-12] MEDS: MAGNESIUM CHLORIDE 64 MG TABLET PO SCH ×2 (09:23→21:48)
[2018-05-12] MEDS: traMADol 50 MG TABLET PO PRN (12:34)
[2018-05-12] MEDS: MAGNESIUM SULF RIDER 4 GM in PREMIX 1 EACH IV PRN (18:41)
[2018-05-13] MEDS: LACTULOSE 20 GM/30 ML UDCUP PO SCH ×3 (02:25→16:52)
[2018-05-13] MEDS: INSULIN NPH 100 UNIT/ML SUBCUT SCH ×2 (04:45→16:52)
[2018-05-13] MEDS: PANTOPRAZOLE 40 MG TABLET PO SCH ×2 (07:41→18:07)
[2018-05-13] MEDS: INSULIN REGULAR 100 UNIT/ML SUBCUT SCH ×3 (09:00→16:52)
[2018-05-13] MEDS: NADOLOL 40 MG TABLET PO SCH (09:01)
[2018-05-13] MEDS: SPIRONOLACTONE 100 MG TABLET PO SCH (09:01)
[2018-05-13] MEDS: MAGNESIUM CHLORIDE 64 MG TABLET PO SCH ×2 (09:02→23:01)
[2018-05-13] MEDS: BACITRACIN OINT 0.9 GM PACK TOP SCH (09:03)
[2018-05-13] MEDS: NICOTINE 21 MG/24 HR PATCH TRANSDERM SCH (09:03)
[2018-05-13] MEDS: traMADol 50 MG TABLET PO PRN ×2 (15:26→23:00)
[2018-05-14] MEDS: INSULIN REGULAR 100 UNIT/ML SUBCUT SCH ×5 (02:18→22:13)
[2018-05-14] MEDS: INSULIN NPH 100 UNIT/ML SUBCUT SCH ×2 (03:38→15:37)
[2018-05-14] MEDS: LACTULOSE 20 GM/30 ML UDCUP PO SCH ×3 (03:39→15:37)
[2018-05-14] MEDS: traMADol 50 MG TABLET PO PRN ×2 (04:46→19:42)
[2018-05-14] MEDS: ONDANSETRON 4 MG/2 ML VIAL IV PRN (04:46)
[2018-05-14] MEDS: NICOTINE 21 MG/24 HR PATCH TRANSDERM SCH (08:52)
[2018-05-14] MEDS: BACITRACIN OINT 0.9 GM PACK TOP SCH (08:52)
[2018-05-14] MEDS: NADOLOL 40 MG TABLET PO SCH (08:53)
[2018-05-14] MEDS: MAGNESIUM CHLORIDE 64 MG TABLET PO SCH ×3 (08:53→20:00)
[2018-05-14] MEDS: PANTOPRAZOLE 40 MG TABLET PO SCH ×2 (08:53→20:57)
[2018-05-14] MEDS: SPIRONOLACTONE 100 MG TABLET PO SCH (08:53)
[2018-05-14] MEDS ORDERED: FUROSEMIDE 40 MG TABLET PO ONE (16:18)
[2018-05-15] MEDS: LACTULOSE 20 GM/30 ML UDCUP PO SCH ×3 (02:18→15:58)
[2018-05-15] MEDS: traMADol 50 MG TABLET PO PRN ×2 (02:18→12:06)
[2018-05-15 05:36] LABS: Basophils # 0.1 10*3/uL (0.0-0.2); Basophils % 1.9 % (0.0-0.8); Eosinophils # 0.1 10*3/uL (0.0-0.87); Eosinophils % 3.7 % (0.00-10.9); Hematocrit 30.1 VOL% (42.0-52.0); Hemoglobin 9.7 GM/DL (14.0-18.0); Immature Granulocytes % 0.8 %; Immature Granulocytes Absolute 0.03 #; Lymphocytes # 1.3 10*3/uL (1.4-4.0); Lymphocytes % 35.5 % (21.2-54.2); Mean Corpuscular HGB Conc 32.2 GM/DL (32-36); Mean Corpuscular Hemoglobin 30 PG (27-34); Mean Corpuscular Volume 92.6 FL (87-102); Mean Platelet Volume 10.9 FL (9.6-12.0); Monocytes # 0.5 10*3/uL (0.11-0.8); Neutrophils # 1.7 10*3/uL (1.4-7.4); Neutrophils % 46.1 % (38.7-73.9); Red Blood Count 3.25 MC/CUMM (3.8-5.5); Red Cell Distribution Width 17.4 % (9.3-17.3); White Blood Count 3.8 T/CUMM (4-12)
[2018-05-15 05:42] LABS: Calcium 8.1 MG/DL (8.5-10.1); Osmolality,Calculated 276.5 MOS/KG (273-304); Potassium 4.1 MMOL/L (3.5-5.1)
[2018-05-15 05:46] LABS: Platelet Count 46 T/CUMM (130-400)
[2018-05-15 06:01] LABS: Burr Cells Slight; Hypochromasia Slight; Microcytosis 1+
[2018-05-15 06:02] LABS: Acanthocytes Few; Ovalocytes Slight; Platelet Estimate Decreased; Target Cells Slight
[2018-05-15] MEDS: PANTOPRAZOLE 40 MG TABLET PO SCH ×2 (06:33→18:26)
[2018-05-15] MEDS: INSULIN REGULAR 100 UNIT/ML SUBCUT SCH ×4 (08:44→21:51)
[2018-05-15] MEDS: BACITRACIN OINT 0.9 GM PACK TOP SCH (09:25)
[2018-05-15] MEDS: INSULIN NPH 100 UNIT/ML SUBCUT SCH ×2 (09:25→16:39)
[2018-05-15] MEDS: NICOTINE 21 MG/24 HR PATCH TRANSDERM SCH (09:26)
[2018-05-15] MEDS: SPIRONOLACTONE 100 MG TABLET PO SCH (09:27)
[2018-05-15] MEDS: MAGNESIUM CHLORIDE 64 MG TABLET PO SCH ×2 (09:27→21:04)
[2018-05-15] MEDS: NADOLOL 40 MG TABLET PO SCH (09:27)
[2018-05-15] MEDS: FUROSEMIDE 40 MG TABLET PO SCH (09:27)
[2018-05-15] MEDS: MAGNESIUM SULF RIDER 4 GM in PREMIX 1 EACH IV PRN (15:57)
[2018-05-15] MEDS: ONDANSETRON 4 MG/2 ML VIAL IV PRN (18:26)
[2018-05-16] MEDS: traMADol 50 MG TABLET PO PRN ×3 (00:23→22:04)
[2018-05-16] MEDS: LACTULOSE 20 GM/30 ML UDCUP PO SCH ×3 (00:23→17:21)
[2018-05-16 06:58] LABS: Calcium 7.9 MG/DL (8.5-10.1); Osmolality,Calculated 274.7 MOS/KG (273-304)
[2018-05-16 07:13] LABS: Basophils % 1.5 % (0.0-0.8); Eosinophils # 0.1 10*3/uL (0.0-0.87); Eosinophils % 3.9 % (0.00-10.9); Hematocrit 27.3 VOL% (42.0-52.0); Hemoglobin 8.7 GM/DL (14.0-18.0); Immature Granulocytes % 1.2 %; Immature Granulocytes Absolute 0.03 #; Lymphocytes # 0.9 10*3/uL (1.4-4.0); Lymphocytes % 33.6 % (21.2-54.2); Mean Corpuscular HGB Conc 31.9 GM/DL (32-36); Mean Corpuscular Hemoglobin 29 PG (27-34); Mean Platelet Volume 10.4 FL (9.6-12.0); Monocytes # 0.3 10*3/uL (0.11-0.8); Monocytes % 11.6 % (1.7-12.7); Neutrophils # 1.3 10*3/uL (1.4-7.4); Neutrophils % 48.2 % (38.7-73.9); Red Cell Distribution Width 17.2 % (9.3-17.3)
[2018-05-16 07:42] LABS: Platelet Count 40 T/CUMM (130-400); White Blood Count 2.6 T/CUMM (4-12)
[2018-05-16 07:57] LABS: Hypochromasia 1+; Microcytosis 1+; Platelet Estimate Decreased
[2018-05-16] MEDS: MAGNESIUM CHLORIDE 64 MG TABLET PO SCH ×2 (08:03→20:44)
[2018-05-16] MEDS: FUROSEMIDE 40 MG TABLET PO SCH (08:03)
[2018-05-16] MEDS: NADOLOL 40 MG TABLET PO SCH (08:04)
[2018-05-16] MEDS: PANTOPRAZOLE 40 MG TABLET PO SCH ×2 (08:04→20:45)
[2018-05-16] MEDS: INSULIN NPH 100 UNIT/ML SUBCUT SCH ×2 (08:05→17:08)
[2018-05-16] MEDS: NICOTINE 21 MG/24 HR PATCH TRANSDERM SCH (08:05)
[2018-05-16] MEDS: INSULIN REGULAR 100 UNIT/ML SUBCUT SCH ×4 (08:06→20:45)
[2018-05-16] MEDS: SPIRONOLACTONE 100 MG TABLET PO SCH (10:00)
[2018-05-16] MEDS: BACITRACIN OINT 0.9 GM PACK TOP SCH (11:51)
[2018-05-16] MEDS: MAGNESIUM SULF RIDER 2 GM in PREMIX 1 EACH IV PRN (14:45)
[2018-05-17] MEDS: LACTULOSE 20 GM/30 ML UDCUP PO SCH ×3 (00:43→18:35)
[2018-05-17] MEDS: PANTOPRAZOLE 40 MG TABLET PO SCH ×2 (06:11→20:42)
[2018-05-17 07:11] LABS: Calcium 8.8 MG/DL (8.5-10.1); Osmolality,Calculated 272.8 MOS/KG (273-304); Potassium 4.7 MMOL/L (3.5-5.1)
[2018-05-17] MEDS: INSULIN REGULAR 100 UNIT/ML SUBCUT SCH ×4 (07:30→21:15)
[2018-05-17] MEDS ORDERED: MAGNESIUM SULF RIDER 2 GM in PREMIX 1 EACH IV PRN (08:13)
[2018-05-17] MEDS ORDERED: MAGNESIUM SULF RIDER 4 GM in PREMIX 1 EACH IV PRN (08:13)
[2018-05-17] MEDS: NICOTINE 21 MG/24 HR PATCH TRANSDERM SCH (09:39)
[2018-05-17] MEDS: BACITRACIN OINT 0.9 GM PACK TOP SCH (09:39)
[2018-05-17] MEDS: MAGNESIUM CHLORIDE 64 MG TABLET PO SCH ×2 (09:39→20:42)
[2018-05-17] MEDS: NADOLOL 40 MG TABLET PO SCH (09:40)
[2018-05-17] MEDS: FUROSEMIDE 40 MG TABLET PO SCH (09:40)
[2018-05-17] MEDS: INSULIN NPH 100 UNIT/ML SUBCUT SCH ×2 (09:44→16:30)
[2018-05-17] MEDS: traMADol 50 MG TABLET PO PRN ×2 (09:45→20:42)
[2018-05-17] MEDS: SPIRONOLACTONE 100 MG TABLET PO SCH (09:45)
[2018-05-17 13:09] LABS: Basophils # 0.1 10*3/uL (0.0-0.2); Basophils % 1.4 % (0.0-0.8); Eosinophils # 0.1 10*3/uL (0.0-0.87); Eosinophils % 2.2 % (0.00-10.9); Hematocrit 30.3 VOL% (42.0-52.0); Hemoglobin 9.8 GM/DL (14.0-18.0); Immature Granulocytes % 0.8 %; Immature Granulocytes Absolute 0.03 #; Lymphocytes % 28.3 % (21.2-54.2); Mean Corpuscular HGB Conc 32.3 GM/DL (32-36); Mean Corpuscular Hemoglobin 29 PG (27-34); Mean Corpuscular Volume 89.6 FL (87-102); Mean Platelet Volume 10.6 FL (9.6-12.0); Monocytes # 0.4 10*3/uL (0.11-0.8); Monocytes % 10.6 % (1.7-12.7); Neutrophils % 56.7 % (38.7-73.9); Platelet Count 52 T/CUMM (130-400); Red Blood Count 3.38 MC/CUMM (3.8-5.5); Red Cell Distribution Width 16.9 % (9.3-17.3); White Blood Count 3.6 T/CUMM (4-12)
[2018-05-17 14:32] LABS: Macrocytosis Slight
[2018-05-17 14:33] LABS: Platelet Estimate Decreased
[2018-05-17 14:35] LABS: Hypochromasia 1+
[2018-05-18] MEDS: LACTULOSE 20 GM/30 ML UDCUP PO SCH ×3 (01:31→16:45)
[2018-05-18 05:01] LABS: Calcium 8.1 MG/DL (8.5-10.1); Osmolality,Calculated 275.7 MOS/KG (273-304); Potassium 3.9 MMOL/L (3.5-5.1)
[2018-05-18] MEDS: PANTOPRAZOLE 40 MG TABLET PO SCH ×2 (06:22→18:00)
[2018-05-18] MEDS: INSULIN REGULAR 100 UNIT/ML SUBCUT SCH ×4 (09:17→22:29)
[2018-05-18] MEDS: INSULIN NPH 100 UNIT/ML SUBCUT SCH ×2 (09:24→16:45)
[2018-05-18] MEDS: NADOLOL 40 MG TABLET PO SCH (09:24)
[2018-05-18] MEDS: SPIRONOLACTONE 100 MG TABLET PO SCH (09:24)
[2018-05-18] MEDS: MAGNESIUM CHLORIDE 64 MG TABLET PO SCH ×2 (09:24→22:14)
[2018-05-18] MEDS: NICOTINE 21 MG/24 HR PATCH TRANSDERM SCH (09:24)
[2018-05-18] MEDS: FUROSEMIDE 40 MG TABLET PO SCH (09:24)
[2018-05-18] MEDS: MAGNESIUM SULF RIDER 2 GM in PREMIX 1 EACH IV PRN (09:25)
[2018-05-18] MEDS: BACITRACIN OINT 0.9 GM PACK TOP SCH (09:25)
[2018-05-18] MEDS: RIFAXIMIN 550 MG TABLET PO SCH (22:14)
[2018-05-19] MEDS: LACTULOSE 20 GM/30 ML UDCUP PO SCH ×5 (00:48→21:58)
[2018-05-19] MEDS: PANTOPRAZOLE 40 MG TABLET PO SCH (07:24)
[2018-05-19] MEDS: INSULIN NPH 100 UNIT/ML SUBCUT SCH ×2 (11:08→17:39)
[2018-05-19] MEDS: INSULIN REGULAR 100 UNIT/ML SUBCUT SCH ×4 (11:09→21:58)
[2018-05-19] MEDS: RIFAXIMIN 550 MG TABLET PO SCH ×2 (11:30→21:58)
[2018-05-19] MEDS: MAGNESIUM CHLORIDE 64 MG TABLET PO SCH ×2 (11:30→21:58)
[2018-05-19] MEDS: BACITRACIN OINT 0.9 GM PACK TOP SCH (11:30)
[2018-05-19] MEDS: NICOTINE 21 MG/24 HR PATCH TRANSDERM SCH ×2 (11:30→14:41)
[2018-05-19] MEDS: NADOLOL 40 MG TABLET PO SCH ×2 (11:30→14:41)
[2018-05-19] MEDS: SPIRONOLACTONE 100 MG TABLET PO SCH ×2 (11:30→14:40)
[2018-05-19] MEDS: FUROSEMIDE 40 MG TABLET PO SCH (11:30)
[2018-05-19 11:54] LABS: ABG Base Excess 2.8 MMOL/L (-2.5-2.5); ABG HCO3 26.8 MMOL/L (20-26); ABG Oxygen Saturation 95.4 % (95-100); ABG PCO2 32.7 MM HG (35-48); ABG PH 7.501 (7.35-7.45); ABG PO2 71.6 MM HG (80-95); ABG TCO2 22.8 MMOL/L (23-27); Allen Test Positive; Pt O2 Delivery Device Room Air
[2018-05-19 12:17] LABS: Basophils # 0.1 10*3/uL (0.0-0.2); Basophils % 1.3 % (0.0-0.8); Eosinophils # 0.1 10*3/uL (0.0-0.87); Eosinophils % 2.1 % (0.00-10.9); Hematocrit 33.5 VOL% (42.0-52.0); Hemoglobin 11.3 GM/DL (14.0-18.0); Immature Granulocytes % 0.9 %; Immature Granulocytes Absolute 0.04 #; Lymphocytes # 1.4 10*3/uL (1.4-4.0); Lymphocytes % 30.9 % (21.2-54.2); Mean Corpuscular HGB Conc 33.7 GM/DL (32-36); Mean Corpuscular Hemoglobin 30 PG (27-34); Mean Corpuscular Volume 89.3 FL (87-102); Mean Platelet Volume 11.5 FL (9.6-12.0); Monocytes # 0.5 10*3/uL (0.11-0.8); Monocytes % 9.9 % (1.7-12.7); Neutrophils # 2.6 10*3/uL (1.4-7.4); Neutrophils % 54.9 % (38.7-73.9); Platelet Count 62 T/CUMM (130-400); Red Blood Count 3.75 MC/CUMM (3.8-5.5); Red Cell Distribution Width 17.1 % (9.3-17.3); White Blood Count 4.7 T/CUMM (4-12)
[2018-05-19 12:40] LABS: Albumin 2.4 G/DL (3.4-5.0); Calcium 8.5 MG/DL (8.5-10.1); Osmolality,Calculated 274.8 MOS/KG (273-304); Potassium 4.4 MMOL/L (3.5-5.1); Total Protein 5.8 G/DL (6.4-8.3)
[2018-05-19 12:43] LABS: Bilirubin,Total 12.7 MG/DL (0.2-1.0)
[2018-05-19 12:57] LABS: Albumin 2.4 G/DL (3.4-5.0); Bilirubin,Direct 4.18 MG/DL (0.0-0.20); Bilirubin,Indirect 7.9 MG/DL (0.0-1.0); Total Protein 5.9 G/DL (6.4-8.3)
[2018-05-19 13:01] LABS: Bilirubin,Total 12.1 MG/DL (0.2-1.0)
[2018-05-19] MEDS ORDERED: LACTULOSE 20 GM/30 ML UDCUP PO PRN ×2 (13:41→13:43)
[2018-05-19] MEDS: MAGNESIUM SULF RIDER 2 GM in PREMIX 1 EACH IV PRN (14:09)
[2018-05-19] MEDS ORDERED: hydrALAZINE 20 MG/1 ML VIAL IV PRN (16:20)
[2018-05-19] MEDS: PANTOPRAZOLE 40 MG VIAL IV SCH (21:59)
[2018-05-20] MEDS: LACTULOSE 20 GM/30 ML UDCUP PO SCH ×6 (03:19→21:45)
[2018-05-20 04:51] LABS: Basophils # 0.1 10*3/uL (0.0-0.2); Basophils % 1.7 % (0.0-0.8); Eosinophils # 0.2 10*3/uL (0.0-0.87); Eosinophils % 3.2 % (0.00-10.9); Hematocrit 31.6 VOL% (42.0-52.0); Hemoglobin 10.6 GM/DL (14.0-18.0); Immature Granulocytes % 0.6 %; Immature Granulocytes Absolute 0.04 #; Lymphocytes # 1.9 10*3/uL (1.4-4.0); Lymphocytes % 29.1 % (21.2-54.2); Mean Corpuscular HGB Conc 33.5 GM/DL (32-36); Mean Corpuscular Hemoglobin 30 PG (27-34); Mean Corpuscular Volume 88.5 FL (87-102); Mean Platelet Volume 10.7 FL (9.6-12.0); Monocytes # 0.8 10*3/uL (0.11-0.8); Monocytes % 11.7 % (1.7-12.7); Neutrophils # 3.6 10*3/uL (1.4-7.4); Neutrophils % 53.7 % (38.7-73.9); Red Blood Count 3.57 MC/CUMM (3.8-5.5); Red Cell Distribution Width 17.1 % (9.3-17.3); White Blood Count 6.6 T/CUMM (4-12)
[2018-05-20 04:55] LABS: Platelet Count 57 T/CUMM (130-400)
[2018-05-20 05:04] LABS: INR 1.6; PT Patient Result 17.6 SECS
[2018-05-20 05:06] LABS: Calcium 8.6 MG/DL (8.5-10.1); Osmolality,Calculated 277.7 MOS/KG (273-304); Potassium 3.6 MMOL/L (3.5-5.1)
[2018-05-20 05:32] LABS: Hypochromasia Slight; Platelet Estimate Decreased; Polychromasia Few
[2018-05-20] MEDS: MAGNESIUM SULF RIDER 2 GM in PREMIX 1 EACH IV PRN (06:51)
[2018-05-20] MEDS: INSULIN NPH 100 UNIT/ML SUBCUT SCH ×2 (11:07→18:36)
[2018-05-20] MEDS: INSULIN REGULAR 100 UNIT/ML SUBCUT SCH ×4 (11:07→22:20)
[2018-05-20] MEDS: MAGNESIUM CHLORIDE 64 MG TABLET PO SCH ×2 (11:08→21:45)
[2018-05-20] MEDS: PANTOPRAZOLE 40 MG VIAL IV SCH ×2 (11:08→21:45)
[2018-05-20] MEDS: BACITRACIN OINT 0.9 GM PACK TOP SCH (11:08)
[2018-05-20] MEDS: NADOLOL 40 MG TABLET PO SCH (11:08)
[2018-05-20] MEDS: NICOTINE 21 MG/24 HR PATCH TRANSDERM SCH (11:08)
[2018-05-20] MEDS: FUROSEMIDE 40 MG TABLET PO SCH (11:08)
[2018-05-20] MEDS: SPIRONOLACTONE 100 MG TABLET PO SCH (11:08)
[2018-05-20] MEDS: RIFAXIMIN 550 MG TABLET PO SCH ×2 (11:09→21:45)
[2018-05-21] MEDS: LACTULOSE 20 GM/30 ML UDCUP PO SCH ×6 (01:35→22:10)
[2018-05-21 05:22] LABS: Basophils # 0.1 10*3/uL (0.0-0.2); Basophils % 1.7 % (0.0-0.8); Eosinophils # 0.3 10*3/uL (0.0-0.87); Hematocrit 27.3 VOL% (42.0-52.0); Hemoglobin 9.1 GM/DL (14.0-18.0); Immature Granulocytes % 0.6 %; Immature Granulocytes Absolute 0.03 #; Lymphocytes % 37.8 % (21.2-54.2); Mean Corpuscular HGB Conc 33.3 GM/DL (32-36); Mean Corpuscular Hemoglobin 30 PG (27-34); Mean Corpuscular Volume 89.5 FL (87-102); Mean Platelet Volume 10.8 FL (9.6-12.0); Monocytes # 0.6 10*3/uL (0.11-0.8); Monocytes % 10.7 % (1.7-12.7); Neutrophils # 2.3 10*3/uL (1.4-7.4); Neutrophils % 44.2 % (38.7-73.9); Platelet Count 52 T/CUMM (130-400); Red Blood Count 3.05 MC/CUMM (3.8-5.5); Red Cell Distribution Width 16.9 % (9.3-17.3); White Blood Count 5.2 T/CUMM (4-12)
[2018-05-21 05:51] LABS: Calcium 8.4 MG/DL (8.5-10.1); Osmolality,Calculated 274.7 MOS/KG (273-304); Potassium 3.7 MMOL/L (3.5-5.1)
[2018-05-21 06:07] LABS: Eosinophils 10 % (0-10); Lymphocytes 26 % (20-55); Segmented Neutrophils 57 % (50-85); Total Cells Counted 100
[2018-05-21 06:08] LABS: Hypochromasia Slight; Microcytosis 1+; Platelet Estimate Decreased
[2018-05-21 06:09] LABS: Anisocytosis 1+
[2018-05-21] MEDS: INSULIN REGULAR 100 UNIT/ML SUBCUT SCH ×4 (07:57→21:58)
[2018-05-21] MEDS: MAGNESIUM CHLORIDE 64 MG TABLET PO SCH ×2 (08:48→21:57)
[2018-05-21] MEDS: RIFAXIMIN 550 MG TABLET PO SCH ×2 (08:48→21:57)
[2018-05-21] MEDS: SPIRONOLACTONE 100 MG TABLET PO SCH (08:48)
[2018-05-21] MEDS: NADOLOL 40 MG TABLET PO SCH (08:48)
[2018-05-21] MEDS: FUROSEMIDE 40 MG TABLET PO SCH (08:48)
[2018-05-21] MEDS: NICOTINE 21 MG/24 HR PATCH TRANSDERM SCH (08:49)
[2018-05-21] MEDS: BACITRACIN OINT 0.9 GM PACK TOP SCH (08:49)
[2018-05-21] MEDS: PANTOPRAZOLE 40 MG VIAL IV SCH ×2 (08:49→21:58)
[2018-05-21] MEDS: INSULIN NPH 100 UNIT/ML SUBCUT SCH ×2 (08:52→16:58)
[2018-05-22] MEDS ORDERED: LACTULOSE 20 GM/30 ML UDCUP PO SCH
[2018-05-22] MEDS: LACTULOSE 20 GM/30 ML UDCUP PO SCH ×4 (02:57→17:15)
[2018-05-22 08:10] LABS: Basophils # 0.1 10*3/uL (0.0-0.2); Basophils % 1.3 % (0.0-0.8); Eosinophils # 0.3 10*3/uL (0.0-0.87); Eosinophils % 4.9 % (0.00-10.9); Hematocrit 27.4 VOL% (42.0-52.0); Hemoglobin 9.3 GM/DL (14.0-18.0); Immature Granulocytes % 0.7 %; Immature Granulocytes Absolute 0.04 #; Lymphocytes # 2.3 10*3/uL (1.4-4.0); Lymphocytes % 41.1 % (21.2-54.2); Mean Corpuscular HGB Conc 33.9 GM/DL (32-36); Mean Corpuscular Hemoglobin 31 PG (27-34); Mean Corpuscular Volume 89.8 FL (87-102); Mean Platelet Volume 11.4 FL (9.6-12.0); Monocytes # 0.5 10*3/uL (0.11-0.8); Monocytes % 9.4 % (1.7-12.7); Neutrophils # 2.4 10*3/uL (1.4-7.4); Neutrophils % 42.6 % (38.7-73.9); Platelet Count 55 T/CUMM (130-400); Red Blood Count 3.05 MC/CUMM (3.8-5.5); Red Cell Distribution Width 17.2 % (9.3-17.3); White Blood Count 5.5 T/CUMM (4-12)
[2018-05-22 08:30] LABS: Albumin 2.3 G/DL (3.4-5.0); Bilirubin,Total 11.6 MG/DL (0.2-1.0); Calcium 8.6 MG/DL (8.5-10.1); Osmolality,Calculated 283.3 MOS/KG (273-304); Potassium 3.5 MMOL/L (3.5-5.1); Total Protein 5.6 G/DL (6.4-8.3)
[2018-05-22 08:37] LABS: Eosinophils 6 % (0-10); Lymphocytes 29 % (20-55); Segmented Neutrophils 61 % (50-85); Total Cells Counted 100
[2018-05-22 08:38] LABS: Acanthocytes Few; Hypochromasia Slight; Microcytosis 1+; Platelet Estimate Decreased
[2018-05-22] MEDS: FUROSEMIDE 40 MG TABLET PO SCH (08:55)
[2018-05-22] MEDS: BACITRACIN OINT 0.9 GM PACK TOP SCH (08:55)
[2018-05-22] MEDS: MAGNESIUM CHLORIDE 64 MG TABLET PO SCH ×2 (08:55→20:08)
[2018-05-22] MEDS: INSULIN REGULAR 100 UNIT/ML SUBCUT SCH ×4 (08:56→20:08)
[2018-05-22] MEDS: PANTOPRAZOLE 40 MG VIAL IV SCH ×2 (08:56→20:09)
[2018-05-22] MEDS: RIFAXIMIN 550 MG TABLET PO SCH ×2 (08:56→20:09)
[2018-05-22] MEDS: INSULIN NPH 100 UNIT/ML SUBCUT SCH ×2 (08:56→17:14)
[2018-05-22] MEDS: SPIRONOLACTONE 100 MG TABLET PO SCH (10:24)
[2018-05-22] MEDS: NADOLOL 40 MG TABLET PO SCH (10:24)
[2018-05-22] MEDS: NICOTINE 21 MG/24 HR PATCH TRANSDERM SCH (10:25)
[2018-05-22] MEDS: MORPHINE 4 MG/1 ML VIAL IV PRN (20:11)
[2018-05-23] MEDS: LACTULOSE 20 GM/30 ML UDCUP PO SCH ×4 (00:57→18:36)
[2018-05-23 04:58] LABS: Basophils % 1.1 % (0.0-0.8); Eosinophils # 0.3 10*3/uL (0.0-0.87); Eosinophils % 7.1 % (0.00-10.9); Hematocrit 26.1 VOL% (42.0-52.0); Hemoglobin 8.5 GM/DL (14.0-18.0); Immature Granulocytes % 0.8 %; Immature Granulocytes Absolute 0.03 #; Lymphocytes # 1.8 10*3/uL (1.4-4.0); Lymphocytes % 47.6 % (21.2-54.2); Mean Corpuscular HGB Conc 32.6 GM/DL (32-36); Mean Corpuscular Hemoglobin 29 PG (27-34); Mean Corpuscular Volume 89.7 FL (87-102); Mean Platelet Volume 10.5 FL (9.6-12.0); Monocytes # 0.4 10*3/uL (0.11-0.8); Monocytes % 11.6 % (1.7-12.7); Neutrophils # 1.2 10*3/uL (1.4-7.4); Neutrophils % 31.8 % (38.7-73.9); Red Blood Count 2.91 MC/CUMM (3.8-5.5); Red Cell Distribution Width 17.1 % (9.3-17.3)
[2018-05-23 05:01] LABS: White Blood Count 3.8 T/CUMM (4-12)
[2018-05-23 05:02] LABS: Platelet Count 44 T/CUMM (130-400)
[2018-05-23 05:19] LABS: Calcium 8.1 MG/DL (8.5-10.1); Osmolality,Calculated 273.7 MOS/KG (273-304); Potassium 3.4 MMOL/L (3.5-5.1)
[2018-05-23 05:38] LABS: Eosinophils 7 % (0-10); Hypochromasia 1+; Lymphocytes 45 % (20-55); Platelet Estimate Decreased; Polychromasia Few; Segmented Neutrophils 44 % (50-85); Total Cells Counted 100
[2018-05-23] MEDS ORDERED: MAGNESIUM SULF RIDER 4 GM in PREMIX 1 EACH IV ONE (08:38)
[2018-05-23] MEDS: INSULIN NPH 100 UNIT/ML SUBCUT SCH ×2 (09:44→16:56)
[2018-05-23] MEDS: INSULIN REGULAR 100 UNIT/ML SUBCUT SCH ×4 (09:44→20:46)
[2018-05-23] MEDS: RIFAXIMIN 550 MG TABLET PO SCH ×2 (09:55→21:01)
[2018-05-23] MEDS: NICOTINE 21 MG/24 HR PATCH TRANSDERM SCH (09:55)
[2018-05-23] MEDS: FUROSEMIDE 40 MG TABLET PO SCH (09:56)
[2018-05-23] MEDS: SPIRONOLACTONE 100 MG TABLET PO SCH (09:56)
[2018-05-23] MEDS: MAGNESIUM CHLORIDE 64 MG TABLET PO SCH ×2 (09:56→20:41)
[2018-05-23] MEDS: BACITRACIN OINT 0.9 GM PACK TOP SCH (09:56)
[2018-05-23] MEDS: PANTOPRAZOLE 40 MG VIAL IV SCH ×2 (09:56→20:48)
[2018-05-23] MEDS: NADOLOL 40 MG TABLET PO SCH (09:56)
[2018-05-23] MEDS ORDERED: TUBERCULIN SKIN TEST 0.1 ML SYRINGE INTRADERM ONE (19:00)
[2018-05-23] MEDS: MORPHINE 4 MG/1 ML VIAL IV PRN (20:51)
[2018-05-24] MEDS: LACTULOSE 20 GM/30 ML UDCUP PO SCH ×5 (06:30→21:11)
[2018-05-24 08:41] LABS: Basophils % 1.1 % (0.0-0.8); Eosinophils # 0.2 10*3/uL (0.0-0.87); Eosinophils % 5.7 % (0.00-10.9); Hematocrit 26.5 VOL% (42.0-52.0); Hemoglobin 8.9 GM/DL (14.0-18.0); Immature Granulocytes % 0.9 %; Immature Granulocytes Absolute 0.03 #; Lymphocytes # 1.6 10*3/uL (1.4-4.0); Lymphocytes % 44.4 % (21.2-54.2); Mean Corpuscular HGB Conc 33.6 GM/DL (32-36); Mean Corpuscular Hemoglobin 31 PG (27-34); Mean Corpuscular Volume 90.8 FL (87-102); Mean Platelet Volume 9.6 FL (9.6-12.0); Monocytes # 0.4 10*3/uL (0.11-0.8); Neutrophils # 1.3 10*3/uL (1.4-7.4); Neutrophils % 35.9 % (38.7-73.9); Platelet Count 45 T/CUMM (130-400); Red Blood Count 2.92 MC/CUMM (3.8-5.5); Red Cell Distribution Width 17.4 % (9.3-17.3); White Blood Count 3.5 T/CUMM (4-12)
[2018-05-24 09:02] LABS: Calcium 8.5 MG/DL (8.5-10.1); Potassium 3.9 MMOL/L (3.5-5.1)
[2018-05-24] MEDS: NICOTINE 21 MG/24 HR PATCH TRANSDERM SCH (09:08)
[2018-05-24] MEDS: SPIRONOLACTONE 100 MG TABLET PO SCH (09:08)
[2018-05-24] MEDS: NADOLOL 40 MG TABLET PO SCH (09:09)
[2018-05-24] MEDS: PANTOPRAZOLE 40 MG VIAL IV SCH ×2 (09:09→21:19)
[2018-05-24] MEDS: FUROSEMIDE 40 MG TABLET PO SCH (09:09)
[2018-05-24] MEDS: RIFAXIMIN 550 MG TABLET PO SCH ×2 (09:10→21:01)
[2018-05-24] MEDS: INSULIN NPH 100 UNIT/ML SUBCUT SCH ×2 (09:10→17:01)
[2018-05-24] MEDS: INSULIN REGULAR 100 UNIT/ML SUBCUT SCH ×4 (09:10→21:12)
[2018-05-24] MEDS: BACITRACIN OINT 0.9 GM PACK TOP SCH (09:10)
[2018-05-24] MEDS: MAGNESIUM SULF RIDER 2 GM in PREMIX 1 EACH IV PRN (09:14)
[2018-05-24 09:34] LABS: Anisocytosis 1+; Eosinophils 9 % (0-10); Hypochromasia 1+; Lymphocytes 40 % (20-55); Microcytosis 1+; Segmented Neutrophils 43 % (50-85); Total Cells Counted 100
[2018-05-24 09:35] LABS: Platelet Estimate Decreased
[2018-05-24] MEDS: MAGNESIUM CHLORIDE 64 MG TABLET PO SCH ×2 (11:25→21:01)
[2018-05-25] MEDS: LACTULOSE 20 GM/30 ML UDCUP PO SCH ×4 (04:45→23:35)
[2018-05-25 06:45] LABS: Calcium 7.8 MG/DL (8.5-10.1); Potassium 3.6 MMOL/L (3.5-5.1)
[2018-05-25] MEDS: INSULIN REGULAR 100 UNIT/ML SUBCUT SCH ×4 (10:08→21:03)
[2018-05-25] MEDS: INSULIN NPH 100 UNIT/ML SUBCUT SCH ×2 (10:10→17:07)
[2018-05-25] MEDS: NICOTINE 21 MG/24 HR PATCH TRANSDERM SCH (10:11)
[2018-05-25] MEDS: FUROSEMIDE 40 MG TABLET PO SCH (10:12)
[2018-05-25] MEDS: MAGNESIUM CHLORIDE 64 MG TABLET PO SCH ×2 (10:12→20:59)
[2018-05-25] MEDS: RIFAXIMIN 550 MG TABLET PO SCH ×2 (10:13→21:09)
[2018-05-25] MEDS: BACITRACIN OINT 0.9 GM PACK TOP SCH (10:13)
[2018-05-25] MEDS: NADOLOL 40 MG TABLET PO SCH (10:13)
[2018-05-25] MEDS: PANTOPRAZOLE 40 MG VIAL IV SCH ×2 (10:14→21:05)
[2018-05-25] MEDS: SPIRONOLACTONE 100 MG TABLET PO SCH (10:14)
[2018-05-25] MEDS: MORPHINE 4 MG/1 ML VIAL IV PRN (21:07)
[2018-05-25] MEDS: MAGNESIUM SULF RIDER 2 GM in PREMIX 1 EACH IV PRN (23:39)
[2018-05-26 05:45] LABS: Eosinophils # 0.2 10*3/uL (0.0-0.87); Eosinophils % 4.8 % (0.00-10.9); Hematocrit 25.4 VOL% (42.0-52.0); Hemoglobin 8.5 GM/DL (14.0-18.0); Immature Granulocytes % 1.3 %; Immature Granulocytes Absolute 0.04 #; Lymphocytes # 1.3 10*3/uL (1.4-4.0); Lymphocytes % 42.3 % (21.2-54.2); Mean Corpuscular HGB Conc 33.5 GM/DL (32-36); Mean Corpuscular Hemoglobin 31 PG (27-34); Mean Corpuscular Volume 92.4 FL (87-102); Mean Platelet Volume 10.2 FL (9.6-12.0); Monocytes # 0.4 10*3/uL (0.11-0.8); Monocytes % 13.5 % (1.7-12.7); Neutrophils # 1.2 10*3/uL (1.4-7.4); Neutrophils % 37.1 % (38.7-73.9); Red Blood Count 2.75 MC/CUMM (3.8-5.5); Red Cell Distribution Width 18.4 % (9.3-17.3); White Blood Count 3.1 T/CUMM (4-12)
[2018-05-26 05:58] LABS: Platelet Count 39 T/CUMM (130-400)
[2018-05-26 06:05] LABS: Osmolality,Calculated 274.7 MOS/KG (273-304); Potassium 3.6 MMOL/L (3.5-5.1)
[2018-05-26 06:26] LABS: Eosinophils 8 % (0-10); Lymphocytes 36 % (20-55); Platelet Estimate Decreased; Polychromasia Few; Segmented Neutrophils 46 % (50-85); Total Cells Counted 100
[2018-05-26] MEDS: INSULIN REGULAR 100 UNIT/ML SUBCUT SCH ×4 (08:29→21:55)
[2018-05-26] MEDS: MAGNESIUM CHLORIDE 64 MG TABLET PO SCH ×2 (09:09→21:55)
[2018-05-26] MEDS: INSULIN NPH 100 UNIT/ML SUBCUT SCH ×2 (09:09→16:12)
[2018-05-26] MEDS: FUROSEMIDE 40 MG TABLET PO SCH (09:10)
[2018-05-26] MEDS: SPIRONOLACTONE 100 MG TABLET PO SCH (09:10)
[2018-05-26] MEDS: BACITRACIN OINT 0.9 GM PACK TOP SCH (09:10)
[2018-05-26] MEDS: NADOLOL 40 MG TABLET PO SCH (09:10)
[2018-05-26] MEDS: PANTOPRAZOLE 40 MG VIAL IV SCH ×2 (09:11→21:55)
[2018-05-26] MEDS: NICOTINE 21 MG/24 HR PATCH TRANSDERM SCH (09:11)
[2018-05-26] MEDS: LACTULOSE 20 GM/30 ML UDCUP PO SCH ×2 (09:11→17:42)
[2018-05-26] MEDS: MAGNESIUM SULF RIDER 2 GM in PREMIX 1 EACH IV PRN (14:38)
[2018-05-26] MEDS ORDERED: PROPOFOL 200 MG/20 ML VIAL IV ONE (19:35)
[2018-05-26] MEDS ORDERED: SEVOFLURANE 1 UNIT/15 MINUTE INH ONE (19:35)
[2018-05-26] MEDS ORDERED: ETOMIDATE 40 MG/20 ML VIAL IV ONE (19:35)
[2018-05-26] MEDS ORDERED: GLYCOPYRROLATE 0.4 MG/2 ML VIAL ONE (19:35)
[2018-05-26] MEDS: RIFAXIMIN 550 MG TABLET PO SCH (21:55)
[2018-05-27] MEDS: LACTULOSE 20 GM/30 ML UDCUP PO SCH ×3 (02:26→17:06)
[2018-05-27 06:06] LABS: Basophils % 0.8 % (0.0-0.8); Eosinophils # 0.1 10*3/uL (0.0-0.87); Eosinophils % 3.1 % (0.00-10.9); Hematocrit 24.6 VOL% (42.0-52.0); Hemoglobin 8.3 GM/DL (14.0-18.0); Immature Granulocytes % 0.8 %; Immature Granulocytes Absolute 0.03 #; Lymphocytes # 1.4 10*3/uL (1.4-4.0); Lymphocytes % 36.8 % (21.2-54.2); Mean Corpuscular HGB Conc 33.7 GM/DL (32-36); Mean Corpuscular Hemoglobin 31 PG (27-34); Mean Corpuscular Volume 91.4 FL (87-102); Mean Platelet Volume 10.9 FL (9.6-12.0); Monocytes # 0.4 10*3/uL (0.11-0.8); Monocytes % 10.2 % (1.7-12.7); Neutrophils # 1.9 10*3/uL (1.4-7.4); Neutrophils % 48.3 % (38.7-73.9); Platelet Count 44 T/CUMM (130-400); Red Blood Count 2.69 MC/CUMM (3.8-5.5); Red Cell Distribution Width 18.3 % (9.3-17.3); White Blood Count 3.9 T/CUMM (4-12)
[2018-05-27 06:13] LABS: Calcium 8.5 MG/DL (8.5-10.1); Osmolality,Calculated 275.8 MOS/KG (273-304); Potassium 4.2 MMOL/L (3.5-5.1)
[2018-05-27 07:41] LABS: Eosinophils 3 % (0-10); Lymphocytes 32 % (20-55); Platelet Estimate Decreased; Segmented Neutrophils 52 % (50-85); Total Cells Counted 100
[2018-05-27 07:42] LABS: Hypochromasia 1+
[2018-05-27] MEDS: INSULIN REGULAR 100 UNIT/ML SUBCUT SCH ×4 (09:18→20:35)
[2018-05-27] MEDS: FUROSEMIDE 40 MG TABLET PO SCH (09:19)
[2018-05-27] MEDS: MAGNESIUM CHLORIDE 64 MG TABLET PO SCH ×2 (09:19→20:34)
[2018-05-27] MEDS: RIFAXIMIN 550 MG TABLET PO SCH ×2 (09:19→20:34)
[2018-05-27] MEDS: NICOTINE 21 MG/24 HR PATCH TRANSDERM SCH (09:20)
[2018-05-27] MEDS: NADOLOL 40 MG TABLET PO SCH (09:21)
[2018-05-27] MEDS: INSULIN NPH 100 UNIT/ML SUBCUT SCH (09:22)
[2018-05-27] MEDS: SPIRONOLACTONE 100 MG TABLET PO SCH (09:22)
[2018-05-27] MEDS: PANTOPRAZOLE 40 MG VIAL IV SCH (09:35)
[2018-05-27] MEDS: BACITRACIN OINT 0.9 GM PACK TOP SCH (14:55)
[2018-05-27] MEDS: PANTOPRAZOLE 40 MG TABLET PO SCH (20:34)
[2018-05-28] MEDS: LACTULOSE 20 GM/30 ML UDCUP PO SCH ×3 (02:35→18:03)
[2018-05-28 05:45] LABS: Basophils % 1.2 % (0.0-0.8); Eosinophils # 0.1 10*3/uL (0.0-0.87); Eosinophils % 3.5 % (0.00-10.9); Hematocrit 23.7 VOL% (42.0-52.0); Hemoglobin 8.2 GM/DL (14.0-18.0); Immature Granulocytes % 0.9 %; Immature Granulocytes Absolute 0.03 #; Lymphocytes # 1.7 10*3/uL (1.4-4.0); Lymphocytes % 48.7 % (21.2-54.2); Mean Corpuscular HGB Conc 34.6 GM/DL (32-36); Mean Corpuscular Hemoglobin 32 PG (27-34); Mean Corpuscular Volume 91.5 FL (87-102); Mean Platelet Volume 10.4 FL (9.6-12.0); Monocytes # 0.4 10*3/uL (0.11-0.8); Monocytes % 11.5 % (1.7-12.7); Neutrophils # 1.2 10*3/uL (1.4-7.4); Neutrophils % 34.2 % (38.7-73.9); Red Blood Count 2.59 MC/CUMM (3.8-5.5); Red Cell Distribution Width 18.3 % (9.3-17.3); White Blood Count 3.4 T/CUMM (4-12)
[2018-05-28 05:46] LABS: Platelet Count 48 T/CUMM (130-400)
[2018-05-28 05:52] LABS: Albumin 2.1 G/DL (3.4-5.0); Calcium 8.1 MG/DL (8.5-10.1); Osmolality,Calculated 279.7 MOS/KG (273-304); Potassium 3.5 MMOL/L (3.5-5.1); Total Protein 5.1 G/DL (6.4-8.3)
[2018-05-28 05:58] LABS: Bilirubin,Total 12.5 MG/DL (0.2-1.0)
[2018-05-28 06:09] LABS: Eosinophils 3 % (0-10); Hypochromasia 1+; Lymphocytes 37 % (20-55); Platelet Estimate Decreased; Segmented Neutrophils 52 % (50-85); Total Cells Counted 100
[2018-05-28] MEDS: INSULIN REGULAR 100 UNIT/ML SUBCUT SCH ×4 (10:30→21:41)
[2018-05-28] MEDS: INSULIN GLARGINE 100 UNIT/ML SUBCUT SCH (10:30)
[2018-05-28] MEDS: FUROSEMIDE 40 MG TABLET PO SCH (10:46)
[2018-05-28] MEDS: SPIRONOLACTONE 100 MG TABLET PO SCH (10:46)
[2018-05-28] MEDS: RIFAXIMIN 550 MG TABLET PO SCH ×2 (10:47→21:41)
[2018-05-28] MEDS: MAGNESIUM CHLORIDE 64 MG TABLET PO SCH ×2 (10:48→21:41)
[2018-05-28] MEDS: NADOLOL 40 MG TABLET PO SCH (10:49)
[2018-05-28] MEDS: BACITRACIN OINT 0.9 GM PACK TOP SCH (10:53)
[2018-05-28] MEDS: NICOTINE 21 MG/24 HR PATCH TRANSDERM SCH (10:54)
[2018-05-28] MEDS: PANTOPRAZOLE 40 MG TABLET PO SCH ×2 (11:17→21:41)
[2018-05-29] MEDS: LACTULOSE 20 GM/30 ML UDCUP PO SCH ×3 (01:48→21:09)
[2018-05-29] MEDS ORDERED: SODIUM CHLORIDE 0.9% 1,000 ML IV PRN (08:52)
[2018-05-29] MEDS ORDERED: FUROSEMIDE 20 MG TABLET ONE (09:26)
[2018-05-29] MEDS: SPIRONOLACTONE 100 MG TABLET PO SCH (09:39)
[2018-05-29] MEDS: FUROSEMIDE 40 MG TABLET PO SCH (09:39)
[2018-05-29] MEDS: NADOLOL 40 MG TABLET PO SCH (09:41)
[2018-05-29] MEDS: INSULIN REGULAR 100 UNIT/ML SUBCUT SCH ×4 (09:42→21:11)
[2018-05-29] MEDS: INSULIN GLARGINE 100 UNIT/ML SUBCUT SCH (09:44)
[2018-05-29] MEDS: BACITRACIN OINT 0.9 GM PACK TOP SCH (09:45)
[2018-05-29] MEDS: NICOTINE 21 MG/24 HR PATCH TRANSDERM SCH (09:46)
[2018-05-29] MEDS: PANTOPRAZOLE 40 MG TABLET PO SCH ×2 (09:51→21:12)
[2018-05-29] MEDS: MAGNESIUM CHLORIDE 64 MG TABLET PO SCH ×2 (09:51→21:11)
[2018-05-29] MEDS ORDERED: oxyCODONE IR 5 MG TABLET PO PRN (23:00)
[2018-05-30] MEDS: LACTULOSE 20 GM/30 ML UDCUP PO SCH ×2 (01:38→09:58)
[2018-05-30] MEDS: INSULIN REGULAR 100 UNIT/ML SUBCUT SCH ×3 (07:53→16:39)
[2018-05-30 08:12] LABS: Basophils % 0.9 % (0.0-0.8); Eosinophils # 0.2 10*3/uL (0.0-0.87); Hematocrit 28.1 VOL% (42.0-52.0); Hemoglobin 9.5 GM/DL (14.0-18.0); Immature Granulocytes % 0.9 %; Immature Granulocytes Absolute 0.03 #; Lymphocytes # 1.3 10*3/uL (1.4-4.0); Lymphocytes % 38.1 % (21.2-54.2); Mean Corpuscular HGB Conc 33.8 GM/DL (32-36); Mean Corpuscular Hemoglobin 31 PG (27-34); Mean Corpuscular Volume 91.2 FL (87-102); Mean Platelet Volume 10.2 FL (9.6-12.0); Monocytes # 0.4 10*3/uL (0.11-0.8); Monocytes % 10.9 % (1.7-12.7); Neutrophils # 1.4 10*3/uL (1.4-7.4); Neutrophils % 43.2 % (38.7-73.9); Red Blood Count 3.08 MC/CUMM (3.8-5.5); Red Cell Distribution Width 18.2 % (9.3-17.3); White Blood Count 3.3 T/CUMM (4-12)
[2018-05-30 08:14] LABS: Platelet Count 47 T/CUMM (130-400)
[2018-05-30 08:36] LABS: Albumin 2.2 G/DL (3.4-5.0); Bilirubin,Direct 4.08 MG/DL (0.0-0.20); Bilirubin,Indirect 9.2 MG/DL (0.0-1.0); Total Protein 5.2 G/DL (6.4-8.3)
[2018-05-30 08:47] LABS: Bilirubin,Total 13.3 MG/DL (0.2-1.0)
[2018-05-30 09:20] LABS: Platelet Estimate Decreased
[2018-05-30 09:21] LABS: Anisocytosis 1+; Poikilocytosis Slight
[2018-05-30] MEDS: SPIRONOLACTONE 100 MG TABLET PO SCH (09:56)
[2018-05-30] MEDS: FUROSEMIDE 40 MG TABLET PO SCH (09:56)
[2018-05-30] MEDS: MAGNESIUM CHLORIDE 64 MG TABLET PO SCH (09:56)
[2018-05-30] MEDS: PANTOPRAZOLE 40 MG TABLET PO SCH (09:57)
[2018-05-30] MEDS: BACITRACIN OINT 0.9 GM PACK TOP SCH (09:57)
[2018-05-30] MEDS: INSULIN GLARGINE 100 UNIT/ML SUBCUT SCH (09:57)
[2018-05-30] MEDS: NADOLOL 40 MG TABLET PO SCH (09:57)
[2018-05-30] MEDS: NICOTINE 21 MG/24 HR PATCH TRANSDERM SCH (09:58)
[2018-05-30 11:02] VITALS: BP 104/62
== END 2018-05-30 16:36 | disposition home or self-care (01) | DRG 442 ==
LOC: EDBD → EDUNIT# → N.ED 11:17 → N.EDINP 14:51 → SUATTDRO 14:51 → N.ICU 15:32 → N.5E 05-02 16:41 → N.CC 05-19 13:07 → N.3E 05-21 09:56
PROVIDERS: ADMIT Internal Medicine Cardiovascular Disease; ATTEND Hospitalist

== ENCOUNTER 2018-08-03 12:56 | Inpatient (IN) ==
[2018-08-03 13:54] LABS: Basophils # 0.1 10*3/uL (0.0-0.2); Basophils % 1.5 % (0.0-0.8); Eosinophils # 0.1 10*3/uL (0.0-0.87); Eosinophils % 2.7 % (0.00-10.9); Hematocrit 33.7 VOL% (42.0-52.0); Hemoglobin 11.3 GM/DL (14.0-18.0); Immature Granulocytes Absolute 0.21 #; Lymphocytes # 1.1 10*3/uL (1.4-4.0); Lymphocytes % 20.7 % (21.2-54.2); Mean Corpuscular HGB Conc 33.5 GM/DL (32-36); Mean Corpuscular Hemoglobin 35 PG (27-34); Mean Corpuscular Volume 105.3 FL (87-102); Mean Platelet Volume 10.5 FL (9.6-12.0); Monocytes # 0.8 10*3/uL (0.11-0.8); Monocytes % 16.1 % (1.7-12.7); Neutrophils # 2.9 10*3/uL (1.4-7.4); Platelet Count 59 T/CUMM (130-400); Red Cell Distribution Width 15.5 % (9.3-17.3); White Blood Count 5.2 T/CUMM (4-12)
[2018-08-03 13:58] LABS: INR 1.2; PT Patient Result 12.8 SECS
[2018-08-03 14:04] LABS: ABG Base Excess -1.1 MMOL/L (-2.5-2.5); ABG HCO3 23.5 MMOL/L (20-26); ABG PCO2 41.3 MM HG (35-48); ABG PH 7.373 (7.35-7.45); ABG TCO2 21.4 MMOL/L (23-27); Pt O2 Delivery Device Ventilator
[2018-08-03 14:20] LABS: Band Neutrophils 3 % (0-10); Eosinophils 3 % (0-10); Lymphocytes 18 % (20-55); Platelet Estimate Decreased; Segmented Neutrophils 58 % (50-85); Total Cells Counted 100
[2018-08-03 14:21] LABS: Albumin 2.6 G/DL (3.4-5.0); Calcium 8.5 MG/DL (8.5-10.1); Osmolality,Calculated 289.4 MOS/KG (273-304); Potassium 4.2 MMOL/L (3.5-5.1); Total Protein 6.5 G/DL (6.4-8.3)
[2018-08-03] MEDS ORDERED: PROPOFOL 1,000 MG/100 ML BOTTLE IV ONE (14:23)
[2018-08-03 14:25] LABS: Bilirubin,Total 12.7 MG/DL (0.2-1.0)
[2018-08-03 14:37] LABS: Apearance,Urine CLEAR (Clear); Bilirubin,Urine Small mg/dL (Negative); Blood, Urine Large mg/dL (Negative); Calcium Oxalate Crystals,Urine Occasional /HPF (Few); Glucose,Urine (UA) 150 mg/dL (Negative); Hyaline Casts,Urine 5 /LPF (0-3); Ketones,Urine Negative (Negative); Mucus,Urine Occasional /LPF (Occasional); Nitrite,Urine Negative (Negative); Protein,Urine 100 MG/DL; RBC,Urine 11 /HPF (0-4); Squamous Epithelial Cell,Urine Occasional /HPF (0-10); Urine Specific Gravity 1.021 (1.001-1.035); WBC,Urine 11 /HPF (0-6)
[2018-08-03 14:38] LABS: Urine Color Dark yellow (Yellow)
[2018-08-03 14:56] LABS: Barbiturates Screen,Urine Negative (Negative); Benzodiazepines Screen,Urine Negative (Negative); Cannabinoid Screen,Urine Negative (Negative); Opiate Screen,Urine Negative (Negative); Phencyclidine Screen,Urine Negative (Negative)
[2018-08-03] MEDS ORDERED: ETOMIDATE 20 MG/10 ML VIAL IV ONE (15:26)
[2018-08-03] MEDS ORDERED: ROCURONIUM 100 MG/10 ML VIAL IV ONE (15:26)
[2018-08-03] MEDS: PROPOFOL 1,000 MG/100 ML BOTTLE IV SCH (17:08)
[2018-08-03] MEDS: SODIUM CHLORIDE 0.9% 1,000 ML IV SCH (17:10)
[2018-08-03] MEDS: LEVOFLOXACIN INJ 500 MG in PREMIX 1 EACH IV SCH (17:20)
[2018-08-04] MEDS ORDERED: GLUCAGON 1 MG VIAL IM PRN (00:19)
[2018-08-04] MEDS ORDERED: DEXTROSE 50% 25 GM/50 ML SYRINGE IV PRN (00:19)
[2018-08-04] MEDS: INSULIN REGULAR 100 UNIT/ML SUBCUT SCH ×6 (00:35→20:50)
[2018-08-04 04:26] LABS: ABG Base Excess -2.3 MMOL/L (-2.5-2.5); ABG HCO3 22.5 MMOL/L (20-26); ABG PCO2 36.5 MM HG (35-48); ABG PH 7.391 (7.35-7.45); ABG TCO2 19.9 MMOL/L (23-27); Allen Test Positive; Pt O2 Delivery Device Ventilator
[2018-08-04 05:02] LABS: INR 1.4; PT Patient Result 15.2 SECS
[2018-08-04 05:30] LABS: Albumin 1.9 G/DL (3.4-5.0); Osmolality,Calculated 297.1 MOS/KG (273-304); Potassium 4.9 MMOL/L (3.5-5.1)
[2018-08-04] MEDS: SODIUM CHLORIDE 0.9% 1,000 ML IV SCH ×2 (06:02→17:00)
[2018-08-04] MEDS: PIPERACILLIN/TAZOBACTAM 3,375 MG in SODIUM CHLORIDE 0.9% 100 ML IV SCH ×2 (09:59→18:15)
[2018-08-04] MEDS: PANTOPRAZOLE 40 MG VIAL IV SCH (10:00)
[2018-08-04] MEDS: RIFAXIMIN 550 MG TABLET NG SCH ×2 (12:47→20:50)
[2018-08-04] MEDS: PROPOFOL 1,000 MG/100 ML BOTTLE IV SCH (13:30)
[2018-08-04] MEDS ORDERED: CYANOCOBALAMIN 1000 MCG/1 ML VIAL IM ONE (14:00)
[2018-08-04] MEDS ORDERED: SODIUM CHLORIDE 0.9% 500 ML IV ONE (15:15)
[2018-08-04] MEDS: LACTULOSE 20 GM/30 ML UDCUP PO SCH ×2 (17:14→20:50)
[2018-08-04] MEDS ORDERED: MORPHINE 4 MG/1 ML VIAL ONE (17:22)
[2018-08-04] MEDS ORDERED: LORazepam 2 MG/1 ML VIAL ONE (17:23)
[2018-08-04] MEDS ORDERED: LORazepam 2 MG/1 ML VIAL IV ONE (17:25)
[2018-08-04] MEDS ORDERED: MORPHINE 4 MG/1 ML VIAL IV ONE (17:25)
[2018-08-04] MEDS: MAGNESIUM SULF RIDER 2 GM in PREMIX 1 EACH IV ONE ×2 (18:12→20:50)
[2018-08-04] MEDS: DOPamine 800 MG/250 ML PREMIX IV PRN (18:12)
[2018-08-04] MEDS: LEVOFLOXACIN INJ 500 MG in PREMIX 1 EACH IV SCH (18:30)
[2018-08-05] MEDS: PIPERACILLIN/TAZOBACTAM 3,375 MG in SODIUM CHLORIDE 0.9% 100 ML IV SCH ×3 (00:41→16:40)
[2018-08-05] MEDS: INSULIN REGULAR 100 UNIT/ML SUBCUT SCH ×6 (00:42→20:16)
[2018-08-05] MEDS: SODIUM CHLORIDE 0.9% 1,000 ML IV SCH ×3 (03:01→23:14)
[2018-08-05 03:45] LABS: ABG Base Excess -3.6 MMOL/L (-2.5-2.5); ABG HCO3 21.4 MMOL/L (20-26); ABG PCO2 35.6 MM HG (35-48); ABG PH 7.378 (7.35-7.45); ABG TCO2 19.2 MMOL/L (23-27); Allen Test Positive; Pt O2 Delivery Device Ventilator
[2018-08-05 04:27] LABS: Basophils # 0.1 10*3/uL (0.0-0.2); Basophils % 0.6 % (0.0-0.8); Eosinophils % 0.1 % (0.00-10.9); Hematocrit 28.7 VOL% (42.0-52.0); Hemoglobin 9.5 GM/DL (14.0-18.0); Immature Granulocytes Absolute 0.32 #; Lymphocytes # 2.1 10*3/uL (1.4-4.0); Lymphocytes % 12.9 % (21.2-54.2); Mean Corpuscular HGB Conc 33.1 GM/DL (32-36); Mean Corpuscular Hemoglobin 36 PG (27-34); Mean Corpuscular Volume 107.5 FL (87-102); Mean Platelet Volume 10.1 FL (9.6-12.0); Monocytes # 1.8 10*3/uL (0.11-0.8); Monocytes % 11.4 % (1.7-12.7); Neutrophils # 11.8 10*3/uL (1.4-7.4); Red Blood Count 2.67 MC/CUMM (3.8-5.5); Red Cell Distribution Width 15.2 % (9.3-17.3); White Blood Count 16.1 T/CUMM (4-12)
[2018-08-05 04:28] LABS: Platelet Count 75 T/CUMM (130-400)
[2018-08-05 04:43] LABS: Albumin 2.1 G/DL (3.4-5.0); Calcium 8.2 MG/DL (8.5-10.1); Osmolality,Calculated 308.3 MOS/KG (273-304); Potassium 5.3 MMOL/L (3.5-5.1); Total Protein 5.3 G/DL (6.4-8.3)
[2018-08-05 05:03] LABS: Eosinophils 2 % (0-10); Hypochromasia Slight; Lymphocytes 8 % (20-55); Ovalocytes Slight; Platelet Estimate Decreased; Segmented Neutrophils 79 % (50-85); Total Cells Counted 100
[2018-08-05 06:16] LABS: Calcium 7.4 MG/DL (8.5-10.1)
[2018-08-05 06:17] LABS: Bilirubin,Total 16.4 MG/DL (0.2-1.0)
[2018-08-05] MEDS: PANTOPRAZOLE 40 MG VIAL IV SCH (08:16)
[2018-08-05] MEDS: FOLIC ACID 0.4 MG TABLET PO SCH (08:18)
[2018-08-05] MEDS: LACTULOSE 20 GM/30 ML UDCUP PO SCH ×4 (08:18→21:15)
[2018-08-05] MEDS: RIFAXIMIN 550 MG TABLET NG SCH ×2 (08:19→20:17)
[2018-08-05] MEDS: PROPOFOL 1,000 MG/100 ML BOTTLE IV SCH (16:01)
[2018-08-05] MEDS: DOPamine 800 MG/250 ML PREMIX IV PRN (16:01)
[2018-08-05] MEDS: LEVOFLOXACIN INJ 500 MG in PREMIX 1 EACH IV SCH (16:41)
[2018-08-05] MEDS ORDERED: INSULIN GLARGINE 100 UNIT/ML SUBCUT SCH (21:00)
[2018-08-06] MEDS: PIPERACILLIN/TAZOBACTAM 3,375 MG in SODIUM CHLORIDE 0.9% 100 ML IV SCH ×3 (00:08→17:12)
[2018-08-06] MEDS: INSULIN REGULAR 100 UNIT/ML SUBCUT SCH ×6 (00:09→20:37)
[2018-08-06 04:19] LABS: Allen Test Positive; Pt O2 Delivery Device Ventilator
[2018-08-06 04:20] LABS: ABG Base Excess -2.6 MMOL/L (-2.5-2.5); ABG Oxygen Saturation 97.9 % (95-100); ABG PH 7.392 (7.35-7.45); ABG PO2 114.6 MM HG (80-95); ABG TCO2 23.1 MMOL/L (23-27)
[2018-08-06] MEDS: LACTULOSE 20 GM/30 ML UDCUP PO SCH ×5 (04:30→23:48)
[2018-08-06 05:08] LABS: Basophils % 0.3 % (0.0-0.8); Eosinophils # 0.2 10*3/uL (0.0-0.87); Eosinophils % 2.2 % (0.00-10.9); Hematocrit 26.4 VOL% (42.0-52.0); Hemoglobin 8.7 GM/DL (14.0-18.0); Lymphocytes # 1.8 10*3/uL (1.4-4.0); Lymphocytes % 18.4 % (21.2-54.2); Mean Corpuscular Hemoglobin 36 PG (27-34); Mean Corpuscular Volume 108.2 FL (87-102); Mean Platelet Volume 10.2 FL (9.6-12.0); Monocytes # 1.4 10*3/uL (0.11-0.8); Monocytes % 14.1 % (1.7-12.7); Neutrophils # 6.2 10*3/uL (1.4-7.4); Red Blood Count 2.44 MC/CUMM (3.8-5.5); Red Cell Distribution Width 14.9 % (9.3-17.3)
[2018-08-06] MEDS: PROPOFOL 1,000 MG/100 ML BOTTLE IV SCH ×3 (05:17→22:09)
[2018-08-06 05:32] LABS: Calcium 8.5 MG/DL (8.5-10.1); Osmolality,Calculated 308.1 MOS/KG (273-304); Potassium 4.2 MMOL/L (3.5-5.1); Total Protein 5.4 G/DL (6.4-8.3)
[2018-08-06 05:37] LABS: Bilirubin,Total 12.9 MG/DL (0.2-1.0)
[2018-08-06 05:39] LABS: Platelet Count 60 T/CUMM (130-400)
[2018-08-06 05:44] LABS: Eosinophils 2 % (0-10); Lymphocytes 15 % (20-55); Platelet Estimate Decreased; Segmented Neutrophils 78 % (50-85); Total Cells Counted 100
[2018-08-06 05:47] LABS: Prealbumin 7.4 MG/DL (20-40)
[2018-08-06] MEDS ORDERED: FUROSEMIDE 40 MG/4 ML VIAL IV ONE ×2 (08:22→23:39)
[2018-08-06] MEDS: RIFAXIMIN 550 MG TABLET NG SCH ×2 (09:10→20:32)
[2018-08-06] MEDS: PANTOPRAZOLE 40 MG VIAL IV SCH (09:11)
[2018-08-06] MEDS: FOLIC ACID 0.4 MG TABLET PO SCH (09:11)
[2018-08-06] MEDS: SODIUM CHLORIDE 0.9% 1,000 ML IV SCH (09:16)
[2018-08-06] MEDS: INSULIN GLARGINE 100 UNIT/ML SUBCUT SCH ×2 (12:26→20:32)
[2018-08-06] MEDS: DOPamine 800 MG/250 ML PREMIX IV PRN (14:03)
[2018-08-06] MEDS: LEVOFLOXACIN INJ 500 MG in PREMIX 1 EACH IV SCH (17:14)
[2018-08-07] MEDS: PIPERACILLIN/TAZOBACTAM 3,375 MG in SODIUM CHLORIDE 0.9% 100 ML IV SCH ×3 (00:07→16:33)
[2018-08-07] MEDS: INSULIN REGULAR 100 UNIT/ML SUBCUT SCH ×6 (00:07→20:38)
[2018-08-07 02:55] LABS: Allen Test Positive; Pt O2 Delivery Device Ventilator
[2018-08-07 02:58] LABS: ABG HCO3 22.5 MMOL/L (20-26); ABG Oxygen Saturation 83.5 % (95-100); ABG PCO2 49.7 MM HG (35-48); ABG PH 7.304 (7.35-7.45); ABG PO2 54.3 MM HG (80-95); ABG TCO2 22.8 MMOL/L (23-27)
[2018-08-07 04:32] LABS: Basophils % 0.3 % (0.0-0.8); Eosinophils # 0.2 10*3/uL (0.0-0.87); Eosinophils % 2.3 % (0.00-10.9); Hemoglobin 8.2 GM/DL (14.0-18.0); Immature Granulocytes % 6.4 %; Immature Granulocytes Absolute 0.62 #; Lymphocytes # 1.4 10*3/uL (1.4-4.0); Lymphocytes % 13.9 % (21.2-54.2); Mean Corpuscular HGB Conc 32.8 GM/DL (32-36); Mean Corpuscular Hemoglobin 35 PG (27-34); Mean Corpuscular Volume 107.3 FL (87-102); Mean Platelet Volume 10.2 FL (9.6-12.0); Monocytes # 1.6 10*3/uL (0.11-0.8); Monocytes % 16.5 % (1.7-12.7); Neutrophils # 5.9 10*3/uL (1.4-7.4); Neutrophils % 60.6 % (38.7-73.9); Red Blood Count 2.33 MC/CUMM (3.8-5.5); Red Cell Distribution Width 15.3 % (9.3-17.3); White Blood Count 9.7 T/CUMM (4-12)
[2018-08-07 04:33] LABS: Platelet Count 50 T/CUMM (130-400)
[2018-08-07 04:44] LABS: Calcium 8.8 MG/DL (8.5-10.1); Osmolality,Calculated 308.8 MOS/KG (273-304); Potassium 3.9 MMOL/L (3.5-5.1)
[2018-08-07 04:53] LABS: Band Neutrophils 1 % (0-10); Eosinophils 7 % (0-10); Lymphocytes 13 % (20-55); Macrocytosis Slight; Metamyelocytes 1 %; Platelet Estimate Decreased; Segmented Neutrophils 67 % (50-85); Total Cells Counted 100
[2018-08-07] MEDS: LACTULOSE 20 GM/30 ML UDCUP PO SCH ×5 (05:31→21:42)
[2018-08-07] MEDS: PROPOFOL 1,000 MG/100 ML BOTTLE IV SCH ×3 (05:32→21:40)
[2018-08-07] MEDS: PANTOPRAZOLE 40 MG VIAL IV SCH (09:18)
[2018-08-07] MEDS: INSULIN GLARGINE 100 UNIT/ML SUBCUT SCH ×2 (09:18→20:38)
[2018-08-07] MEDS: FOLIC ACID 0.4 MG TABLET PO SCH (09:20)
[2018-08-07] MEDS: RIFAXIMIN 550 MG TABLET NG SCH ×2 (09:22→20:38)
[2018-08-07] MEDS: SODIUM CHLORIDE 0.9% 1,000 ML IV SCH (15:37)
[2018-08-07] MEDS: LEVOFLOXACIN INJ 500 MG in PREMIX 1 EACH IV SCH (18:01)
[2018-08-08] MEDS: INSULIN REGULAR 100 UNIT/ML SUBCUT SCH ×6 (01:01→21:03)
[2018-08-08] MEDS: PIPERACILLIN/TAZOBACTAM 3,375 MG in SODIUM CHLORIDE 0.9% 100 ML IV SCH ×2 (01:07→09:19)
[2018-08-08] MEDS: PROPOFOL 1,000 MG/100 ML BOTTLE IV SCH ×3 (01:08→21:21)
[2018-08-08 03:58] LABS: ABG Base Excess -0.8 MMOL/L (-2.5-2.5); ABG HCO3 23.8 MMOL/L (20-26); ABG Oxygen Saturation 99.6 % (95-100); ABG PCO2 47.5 MM HG (35-48); ABG PH 7.334 (7.35-7.45); ABG TCO2 23.5 MMOL/L (23-27); Allen Test Positive; Pt O2 Delivery Device Ventilator
[2018-08-08 05:09] LABS: Basophils # 0.1 10*3/uL (0.0-0.2); Calcium 9.3 MG/DL (8.5-10.1); Eosinophils # 0.3 10*3/uL (0.0-0.87); Hematocrit 24.7 VOL% (42.0-52.0); Hemoglobin 8.2 GM/DL (14.0-18.0); Immature Granulocytes Absolute 0.64 #; Lymphocytes # 1.5 10*3/uL (1.4-4.0); Lymphocytes % 18.7 % (21.2-54.2); Mean Corpuscular HGB Conc 33.2 GM/DL (32-36); Mean Corpuscular Hemoglobin 36 PG (27-34); Mean Corpuscular Volume 107.4 FL (87-102); Mean Platelet Volume 11.1 FL (9.6-12.0); Monocytes # 1.2 10*3/uL (0.11-0.8); Monocytes % 14.5 % (1.7-12.7); Neutrophils # 4.3 10*3/uL (1.4-7.4); Neutrophils % 53.8 % (38.7-73.9); Osmolality,Calculated 305.8 MOS/KG (273-304); Potassium 3.6 MMOL/L (3.5-5.1); Red Cell Distribution Width 15.8 % (9.3-17.3)
[2018-08-08] MEDS: LACTULOSE 20 GM/30 ML UDCUP PO SCH ×4 (05:10→21:03)
[2018-08-08 05:11] LABS: Platelet Count 42 T/CUMM (130-400)
[2018-08-08 06:30] LABS: Anisocytosis 2+; Eosinophils 2 % (0-10); Lymphocytes 16 % (20-55); Macrocytosis 2+; Metamyelocytes 8 %; Myelocytes 1 %; Platelet Estimate Decreased; Polychromasia Few; Segmented Neutrophils 63 % (50-85); Total Cells Counted 100
[2018-08-08] MEDS: DOPamine 800 MG/250 ML PREMIX IV PRN (06:51)
[2018-08-08] MEDS: INSULIN GLARGINE 100 UNIT/ML SUBCUT SCH ×2 (09:23→21:03)
[2018-08-08] MEDS: PANTOPRAZOLE 40 MG VIAL IV SCH (09:23)
[2018-08-08] MEDS: FOLIC ACID 0.4 MG TABLET PO SCH (09:24)
[2018-08-08] MEDS: RIFAXIMIN 550 MG TABLET NG SCH ×2 (09:24→21:03)
[2018-08-08 09:46] LABS: INR 1.3; PT Patient Result 13.7 SECS
[2018-08-08] MEDS ORDERED: MAGNESIUM SULF RIDER 50 ML IV ONE (15:02)
[2018-08-08] MEDS ORDERED: MAGNESIUM SULF RIDER 2 GM in PREMIX 1 EACH IV ONE (15:03)
[2018-08-08] MEDS: FLUCONAZOLE INJ 100 MG in IV BAG 1 EACH IV SCH (19:00)
[2018-08-08] MEDS: LEVOFLOXACIN INJ 500 MG in PREMIX 1 EACH IV SCH (19:00)
[2018-08-08] MEDS: SODIUM CHLORIDE 0.9% 1,000 ML IV SCH (19:01)
[2018-08-09] MEDS: INSULIN REGULAR 100 UNIT/ML SUBCUT SCH ×6 (00:02→21:44)
[2018-08-09 03:43] LABS: INR 1.4; PT Patient Result 14.7 SECS
[2018-08-09 04:21] LABS: ABG Base Excess 0.5 MMOL/L (-2.5-2.5); ABG HCO3 24.8 MMOL/L (20-26); ABG Oxygen Saturation 94.8 % (95-100); ABG PCO2 41.8 MM HG (35-48); ABG PH 7.393 (7.35-7.45); ABG TCO2 23.7 MMOL/L (23-27); Allen Test Positive; Pt O2 Delivery Device Ventilator
[2018-08-09] MEDS: LACTULOSE 20 GM/30 ML UDCUP PO SCH ×4 (04:30→21:45)
[2018-08-09] MEDS ORDERED: MORPHINE 4 MG/1 ML VIAL IV PRN (08:00)
[2018-08-09] MEDS: FOLIC ACID 0.4 MG TABLET PO SCH (08:35)
[2018-08-09] MEDS: INSULIN GLARGINE 100 UNIT/ML SUBCUT SCH ×2 (08:35→21:45)
[2018-08-09] MEDS: PANTOPRAZOLE 40 MG VIAL IV SCH (08:36)
[2018-08-09] MEDS: RIFAXIMIN 550 MG TABLET NG SCH ×2 (08:36→21:45)
[2018-08-09] MEDS: MEPERIDINE 25 MG/1 ML VIAL IV PRN (08:37)
[2018-08-09] MEDS: SODIUM CHLORIDE 0.9% 1,000 ML IV SCH (09:00)
[2018-08-09] MEDS ORDERED: ALBUTEROL/IPRATROPIUM 3 ML NEB RESP TX PRN (10:54)
[2018-08-09] MEDS ORDERED: INSULIN GLARGINE 100 UNIT/ML SUBCUT SCH (11:30)
[2018-08-09] MEDS: ALBUTEROL/IPRATROPIUM 3 ML NEB RESP TX SCH ×2 (11:54→19:20)
[2018-08-09] MEDS: ACETYLCYSTEINE 20% 800 MG/4 ML VIAL RESP TX SCH (11:57)
[2018-08-09 13:58] LABS: Basophils # 0.1 10*3/uL (0.0-0.2); Eosinophils # 0.2 10*3/uL (0.0-0.87); Eosinophils % 1.7 % (0.00-10.9); Hematocrit 27.5 VOL% (42.0-52.0); Hemoglobin 8.9 GM/DL (14.0-18.0); Immature Granulocytes % 7.8 %; Lymphocytes # 1.2 10*3/uL (1.4-4.0); Lymphocytes % 10.8 % (21.2-54.2); Mean Corpuscular HGB Conc 32.4 GM/DL (32-36); Mean Corpuscular Hemoglobin 36 PG (27-34); Mean Corpuscular Volume 110.9 FL (87-102); Mean Platelet Volume 11.1 FL (9.6-12.0); Monocytes # 1.2 10*3/uL (0.11-0.8); Monocytes % 10.8 % (1.7-12.7); NRBC # 0.02 10*3/uL; Neutrophils # 7.8 10*3/uL (1.4-7.4); Neutrophils % 67.9 % (38.7-73.9); Platelet Count 46 T/CUMM (130-400); Red Blood Count 2.48 MC/CUMM (3.8-5.5); Red Cell Distribution Width 16.8 % (9.3-17.3); White Blood Count 11.5 T/CUMM (4-12)
[2018-08-09 14:11] LABS: Albumin 2.2 G/DL (3.4-5.0); Bilirubin,Total 9.3 MG/DL (0.2-1.0); Calcium 9.6 MG/DL (8.5-10.1); Osmolality,Calculated 312.4 MOS/KG (273-304); Total Protein 5.9 G/DL (6.4-8.3)
[2018-08-09 15:21] LABS: Eosinophils 4 % (0-10); Lymphocytes 10 % (20-55); Nucleated Red Blood Cells 1 (0-5); Segmented Neutrophils 78 % (50-85); Total Cells Counted 100
[2018-08-09 15:24] LABS: Anisocytosis 1+; Hypochromasia Slight; Polychromasia 1+
[2018-08-09 15:25] LABS: Poikilocytosis 1+
[2018-08-09 15:26] LABS: Microcytosis 1+; Platelet Estimate Decreased
[2018-08-09] MEDS: PROPOFOL 1,000 MG/100 ML BOTTLE IV SCH (18:01)
[2018-08-09] MEDS: FLUCONAZOLE INJ 100 MG in IV BAG 1 EACH IV SCH (18:10)
[2018-08-09] MEDS: LEVOFLOXACIN INJ 500 MG in PREMIX 1 EACH IV SCH (18:10)
[2018-08-10] MEDS: ACETYLCYSTEINE 20% 800 MG/4 ML VIAL RESP TX SCH ×3 (00:56→15:25)
[2018-08-10] MEDS: INSULIN REGULAR 100 UNIT/ML SUBCUT SCH ×6 (00:56→20:20)
[2018-08-10] MEDS: ALBUTEROL/IPRATROPIUM 3 ML NEB RESP TX SCH ×4 (00:56→20:25)
[2018-08-10 03:58] LABS: Basophils % 0.3 % (0.0-0.8); Eosinophils # 0.2 10*3/uL (0.0-0.87); Hematocrit 26.3 VOL% (42.0-52.0); Hemoglobin 8.4 GM/DL (14.0-18.0); Immature Granulocytes % 6.9 %; Immature Granulocytes Absolute 0.79 #; Lymphocytes # 1.6 10*3/uL (1.4-4.0); Lymphocytes % 14.2 % (21.2-54.2); Mean Corpuscular HGB Conc 31.9 GM/DL (32-36); Mean Corpuscular Hemoglobin 36 PG (27-34); Mean Corpuscular Volume 113.4 FL (87-102); Mean Platelet Volume 10.3 FL (9.6-12.0); Monocytes # 1.3 10*3/uL (0.11-0.8); Monocytes % 11.3 % (1.7-12.7); NRBC # 0.02 10*3/uL; Neutrophils # 7.4 10*3/uL (1.4-7.4); Neutrophils % 65.3 % (38.7-73.9); Red Blood Count 2.32 MC/CUMM (3.8-5.5); Red Cell Distribution Width 17.6 % (9.3-17.3); White Blood Count 11.4 T/CUMM (4-12)
[2018-08-10 04:01] LABS: Platelet Count 40 T/CUMM (130-400)
[2018-08-10 04:07] LABS: INR 1.4; PT Patient Result 14.9 SECS
[2018-08-10] MEDS: LACTULOSE 20 GM/30 ML UDCUP PO SCH ×4 (04:16→21:03)
[2018-08-10 04:24] LABS: Bilirubin,Total 7.3 MG/DL (0.2-1.0); Osmolality,Calculated 311.7 MOS/KG (273-304); Potassium 4.1 MMOL/L (3.5-5.1); Total Protein 5.5 G/DL (6.4-8.3)
[2018-08-10 04:44] LABS: Eosinophils 6 % (0-10); Lymphocytes 11 % (20-55); Metamyelocytes 4 %; Myelocytes 4 %; Segmented Neutrophils 71 % (50-85); Total Cells Counted 100
[2018-08-10 04:45] LABS: Platelet Estimate Decreased
[2018-08-10 04:47] LABS: Polychromasia Few
[2018-08-10 04:48] LABS: Ovalocytes 1+
[2018-08-10 04:49] LABS: ABG HCO3 24.4 MMOL/L (20-26); ABG Oxygen Saturation 93.7 % (95-100); ABG PCO2 52.5 MM HG (35-48); ABG PH 7.321 (7.35-7.45); ABG PO2 73.6 MM HG (80-95); Allen Test Positive; Pt O2 Delivery Device Ventilator
[2018-08-10] MEDS: PANTOPRAZOLE 40 MG VIAL IV SCH (09:10)
[2018-08-10] MEDS: INSULIN GLARGINE 100 UNIT/ML SUBCUT SCH ×2 (09:11→20:21)
[2018-08-10] MEDS: RIFAXIMIN 550 MG TABLET NG SCH ×2 (09:12→20:21)
[2018-08-10] MEDS: FOLIC ACID 0.4 MG TABLET PO SCH (09:12)
[2018-08-10] MEDS: FLUCONAZOLE INJ 100 MG in IV BAG 1 EACH IV SCH (16:24)
[2018-08-10] MEDS: LEVOFLOXACIN INJ 500 MG in PREMIX 1 EACH IV SCH (16:30)
[2018-08-10] MEDS: PROPOFOL 1,000 MG/100 ML BOTTLE IV SCH (19:09)
[2018-08-11] MEDS: INSULIN REGULAR 100 UNIT/ML SUBCUT SCH ×6 (00:33→22:02)
[2018-08-11] MEDS: ALBUTEROL/IPRATROPIUM 3 ML NEB RESP TX SCH ×4 (01:15→19:53)
[2018-08-11] MEDS: ACETYLCYSTEINE 20% 800 MG/4 ML VIAL RESP TX SCH ×3 (01:15→14:07)
[2018-08-11 04:32] LABS: Allen Test Positive; Pt O2 Delivery Device Ventilator
[2018-08-11 04:35] LABS: ABG Base Excess 1.6 MMOL/L (-2.5-2.5); ABG HCO3 25.8 MMOL/L (20-26); ABG Oxygen Saturation 98.7 % (95-100); ABG PH 7.391 (7.35-7.45); ABG PO2 90.5 MM HG (80-95); ABG TCO2 24.8 MMOL/L (23-27)
[2018-08-11] MEDS: LACTULOSE 20 GM/30 ML UDCUP PO SCH ×4 (05:40→22:02)
[2018-08-11 05:55] LABS: INR 1.4; PT Patient Result 15.1 SECS
[2018-08-11 06:10] LABS: Albumin 2.1 G/DL (3.4-5.0); Bilirubin,Total 8.1 MG/DL (0.2-1.0); Calcium 10.3 MG/DL (8.5-10.1); Osmolality,Calculated 319.1 MOS/KG (273-304); Potassium 4.2 MMOL/L (3.5-5.1); Total Protein 5.6 G/DL (6.4-8.3)
[2018-08-11] MEDS: RIFAXIMIN 550 MG TABLET NG SCH ×2 (08:28→22:03)
[2018-08-11] MEDS: INSULIN GLARGINE 100 UNIT/ML SUBCUT SCH ×3 (08:28→22:03)
[2018-08-11] MEDS: FOLIC ACID 0.4 MG TABLET PO SCH (08:28)
[2018-08-11] MEDS: PANTOPRAZOLE 40 MG VIAL IV SCH (08:28)
[2018-08-11] MEDS ORDERED: INSULIN GLARGINE 100 UNIT/ML SUBCUT ONE (09:11)
[2018-08-11] MEDS: PROPOFOL 1,000 MG/100 ML BOTTLE IV SCH ×2 (10:13→18:16)
[2018-08-11] MEDS: FLUCONAZOLE INJ 100 MG in IV BAG 1 EACH IV SCH (16:45)
[2018-08-11] MEDS: LEVOFLOXACIN INJ 500 MG in PREMIX 1 EACH IV SCH (18:17)
[2018-08-12] MEDS: INSULIN REGULAR 100 UNIT/ML SUBCUT SCH ×6 (00:02→20:50)
[2018-08-12] MEDS: ALBUTEROL/IPRATROPIUM 3 ML NEB RESP TX SCH ×4 (00:38→20:46)
[2018-08-12] MEDS: ACETYLCYSTEINE 20% 800 MG/4 ML VIAL RESP TX SCH ×3 (00:38→15:45)
[2018-08-12 03:50] LABS: ABG Base Excess 3.1 MMOL/L (-2.5-2.5); ABG HCO3 27.2 MMOL/L (20-26); ABG Oxygen Saturation 97.8 % (95-100); ABG PCO2 46.9 MM HG (35-48); ABG PH 7.391 (7.35-7.45); ABG TCO2 26.6 MMOL/L (23-27); Allen Test Positive; Pt O2 Delivery Device Ventilator
[2018-08-12] MEDS: LACTULOSE 20 GM/30 ML UDCUP PO SCH ×4 (04:36→21:36)
[2018-08-12 05:34] LABS: INR 1.4; PT Patient Result 15.6 SECS
[2018-08-12 05:59] LABS: Potassium 3.9 MMOL/L (3.5-5.1)
[2018-08-12 06:01] LABS: Calcium 10.4 MG/DL (8.5-10.1)
[2018-08-12 06:02] LABS: Albumin 1.9 G/DL (3.4-5.0)
[2018-08-12 06:07] LABS: Bilirubin,Total 6.8 MG/DL (0.2-1.0)
[2018-08-12 06:40] LABS: Basophils % 0.6 % (0.0-0.8); Eosinophils # 0.1 10*3/uL (0.0-0.87); Eosinophils % 1.8 % (0.00-10.9); Hematocrit 23.8 VOL% (42.0-52.0); Immature Granulocytes % 2.4 %; Immature Granulocytes Absolute 0.15 #; Lymphocytes # 1.2 10*3/uL (1.4-4.0); Mean Corpuscular HGB Conc 30.3 GM/DL (32-36); Mean Corpuscular Hemoglobin 36 PG (27-34); Mean Platelet Volume 11.7 FL (9.6-12.0); Monocytes # 0.8 10*3/uL (0.11-0.8); Monocytes % 12.2 % (1.7-12.7); Red Cell Distribution Width 17.5 % (9.3-17.3); White Blood Count 6.2 T/CUMM (4-12)
[2018-08-12 06:42] LABS: Platelet Count 23 T/CUMM (130-400)
[2018-08-12 06:43] LABS: Hemoglobin 7.2 GM/DL (14.0-18.0)
[2018-08-12 06:45] LABS: Hypochromasia 1+; Ovalocytes Slight; Platelet Estimate Decreased
[2018-08-12] MEDS: PANTOPRAZOLE 40 MG VIAL IV SCH (08:30)
[2018-08-12] MEDS: INSULIN GLARGINE 100 UNIT/ML SUBCUT SCH ×2 (08:30→20:50)
[2018-08-12] MEDS: RIFAXIMIN 550 MG TABLET NG SCH ×2 (08:30→20:53)
[2018-08-12] MEDS: FOLIC ACID 0.4 MG TABLET PO SCH (08:30)
[2018-08-12] MEDS: BACITRACIN OINT 0.9 GM PACK TOP SCH (12:39)
[2018-08-12] MEDS: FLUCONAZOLE INJ 100 MG in IV BAG 1 EACH IV SCH (17:15)
[2018-08-12] MEDS: LEVOFLOXACIN INJ 500 MG in PREMIX 1 EACH IV SCH (17:45)
[2018-08-12] MEDS: PROPOFOL 1,000 MG/100 ML BOTTLE IV SCH (18:22)
[2018-08-13] MEDS: ALBUTEROL/IPRATROPIUM 3 ML NEB RESP TX SCH ×6 (00:16→23:52)
[2018-08-13] MEDS: ACETYLCYSTEINE 20% 800 MG/4 ML VIAL RESP TX SCH ×4 (00:16→23:35)
[2018-08-13] MEDS: INSULIN REGULAR 100 UNIT/ML SUBCUT SCH ×7 (00:19→23:47)
[2018-08-13 03:44] LABS: Allen Test Positive; Pt O2 Delivery Device Ventilator
[2018-08-13 04:12] LABS: ABG Base Excess 2.9 MMOL/L (-2.5-2.5); ABG Oxygen Saturation 98.4 % (95-100); ABG PCO2 41.9 MM HG (35-48); ABG PH 7.426 (7.35-7.45); ABG PO2 91.3 MM HG (80-95); ABG TCO2 25.9 MMOL/L (23-27)
[2018-08-13] MEDS: LACTULOSE 20 GM/30 ML UDCUP PO SCH ×4 (04:55→21:47)
[2018-08-13 05:36] LABS: Basophils % 0.7 % (0.0-0.8); Eosinophils # 0.1 10*3/uL (0.0-0.87); Eosinophils % 2.2 % (0.00-10.9); Hematocrit 22.9 VOL% (42.0-52.0); Hemoglobin 6.9 GM/DL (14.0-18.0); Immature Granulocytes % 1.8 %; Immature Granulocytes Absolute 0.11 #; Lymphocytes # 1.2 10*3/uL (1.4-4.0); Lymphocytes % 20.5 % (21.2-54.2); Mean Corpuscular HGB Conc 30.1 GM/DL (32-36); Mean Corpuscular Hemoglobin 36 PG (27-34); Mean Corpuscular Volume 118.7 FL (87-102); Mean Platelet Volume 12.1 FL (9.6-12.0); Monocytes # 0.5 10*3/uL (0.11-0.8); Monocytes % 8.7 % (1.7-12.7); Neutrophils % 66.1 % (38.7-73.9); Red Blood Count 1.93 MC/CUMM (3.8-5.5); Red Cell Distribution Width 17.4 % (9.3-17.3)
[2018-08-13 05:40] LABS: Platelet Count 24 T/CUMM (130-400)
[2018-08-13 05:46] LABS: Albumin 1.7 G/DL (3.4-5.0); Bilirubin,Total 6.7 MG/DL (0.2-1.0); Calcium 10.5 MG/DL (8.5-10.1); Osmolality,Calculated 322.1 MOS/KG (273-304); Potassium 3.6 MMOL/L (3.5-5.1); Total Protein 5.1 G/DL (6.4-8.3)
[2018-08-13 06:06] LABS: Band Neutrophils 1 % (0-10); Eosinophils 3 % (0-10); Hypochromasia 1+; Lymphocytes 17 % (20-55); Macrocytosis 1+; Segmented Neutrophils 71 % (50-85); Total Cells Counted 100
[2018-08-13 06:08] LABS: Tear Drop Cells Slight
[2018-08-13 06:09] LABS: Platelet Estimate Decreased
[2018-08-13] MEDS: MEPERIDINE 25 MG/1 ML VIAL IV PRN (09:15)
[2018-08-13] MEDS: FOLIC ACID 0.4 MG TABLET PO SCH (09:15)
[2018-08-13] MEDS: RIFAXIMIN 550 MG TABLET NG SCH ×2 (09:15→20:38)
[2018-08-13] MEDS: INSULIN GLARGINE 100 UNIT/ML SUBCUT SCH ×2 (09:15→20:38)
[2018-08-13] MEDS: PANTOPRAZOLE 40 MG VIAL IV SCH (09:18)
[2018-08-13] MEDS: BACITRACIN OINT 0.9 GM PACK TOP SCH (16:00)
[2018-08-13] MEDS: FLUCONAZOLE INJ 100 MG in IV BAG 1 EACH IV SCH (16:34)
[2018-08-13] MEDS: LEVOFLOXACIN INJ 500 MG in PREMIX 1 EACH IV SCH (16:34)
[2018-08-13] MEDS: PROPOFOL 1,000 MG/100 ML BOTTLE IV SCH ×2 (19:15→21:45)
[2018-08-13 21:59] LABS: Hematocrit 26.3 VOL% (42.0-52.0); Hemoglobin 8.3 GM/DL (14.0-18.0)
[2018-08-13] MEDS ORDERED: SODIUM CHLORIDE 0.9% 1,000 ML IV ONE (23:01)
[2018-08-14] MEDS: MEPERIDINE 25 MG/1 ML VIAL IV PRN (02:59)
[2018-08-14 04:53] LABS: ABG Base Excess 0.8 MMOL/L (-2.5-2.5); ABG HCO3 25.1 MMOL/L (20-26); ABG Oxygen Saturation 97.5 % (95-100); ABG PCO2 41.7 MM HG (35-48); ABG PH 7.398 (7.35-7.45); ABG PO2 88.1 MM HG (80-95); ABG TCO2 23.9 MMOL/L (23-27)
[2018-08-14 04:57] LABS: Basophils % 0.4 % (0.0-0.8); Eosinophils # 0.1 10*3/uL (0.0-0.87); Eosinophils % 2.3 % (0.00-10.9); Hematocrit 24.8 VOL% (42.0-52.0); Hemoglobin 7.8 GM/DL (14.0-18.0); Immature Granulocytes Absolute 0.11 #; Lymphocytes # 0.9 10*3/uL (1.4-4.0); Lymphocytes % 16.8 % (21.2-54.2); Mean Corpuscular HGB Conc 31.5 GM/DL (32-36); Mean Corpuscular Hemoglobin 35 PG (27-34); Mean Corpuscular Volume 109.7 FL (87-102); Mean Platelet Volume 12.6 FL (9.6-12.0); Monocytes # 0.6 10*3/uL (0.11-0.8); Neutrophils # 3.8 10*3/uL (1.4-7.4); Neutrophils % 68.5 % (38.7-73.9); Red Blood Count 2.26 MC/CUMM (3.8-5.5); Red Cell Distribution Width 23.4 % (9.3-17.3); White Blood Count 5.6 T/CUMM (4-12)
[2018-08-14 05:01] LABS: Platelet Count 20 T/CUMM (130-400)
[2018-08-14 05:18] LABS: Prealbumin 8.4 MG/DL (20-40)
[2018-08-14 05:20] LABS: Albumin 1.7 G/DL (3.4-5.0); Bilirubin,Total 6.4 MG/DL (0.2-1.0); Calcium 10.3 MG/DL (8.5-10.1); Osmolality,Calculated 323.3 MOS/KG (273-304); Potassium 3.3 MMOL/L (3.5-5.1); Total Protein 4.9 G/DL (6.4-8.3)
[2018-08-14] MEDS: LACTULOSE 20 GM/30 ML UDCUP PO SCH ×3 (05:24→17:26)
[2018-08-14 05:26] LABS: Band Neutrophils 2 % (0-10); Eosinophils 3 % (0-10); Lymphocytes 12 % (20-55); Segmented Neutrophils 72 % (50-85); Total Cells Counted 100
[2018-08-14 05:27] LABS: Hypochromasia 1+; Macrocytosis 1+; Platelet Estimate Decreased; Polychromasia Slight; Target Cells Slight
[2018-08-14] MEDS: INSULIN REGULAR 100 UNIT/ML SUBCUT SCH ×5 (05:52→20:27)
[2018-08-14] MEDS: ACETYLCYSTEINE 20% 800 MG/4 ML VIAL RESP TX SCH ×2 (07:21→15:36)
[2018-08-14] MEDS: ALBUTEROL/IPRATROPIUM 3 ML NEB RESP TX SCH ×3 (07:21→19:38)
[2018-08-14] MEDS: FOLIC ACID 0.4 MG TABLET PO SCH (08:35)
[2018-08-14] MEDS: RIFAXIMIN 550 MG TABLET NG SCH ×2 (08:35→20:29)
[2018-08-14] MEDS: BACITRACIN OINT 0.9 GM PACK TOP SCH (08:35)
[2018-08-14] MEDS: POTASSIUM CHLORIDE 20 MEQ TABLET PO SCH ×2 (08:35→13:09)
[2018-08-14] MEDS: INSULIN GLARGINE 100 UNIT/ML SUBCUT SCH ×2 (08:36→20:28)
[2018-08-14] MEDS: PANTOPRAZOLE 40 MG VIAL IV SCH (08:36)
[2018-08-14] MEDS: ERYTHROMYCIN ETHYLSUCCINATE 40 MG/ML 100 ML/BOTTLE PER TUBE SCH ×2 (13:10→20:29)
[2018-08-14] MEDS ORDERED: SODIUM CHLORIDE 0.9% 1,000 ML IV PRN (16:57)
[2018-08-14] MEDS: FLUCONAZOLE INJ 100 MG in IV BAG 1 EACH IV SCH (17:27)
[2018-08-14] MEDS: PROPOFOL 1,000 MG/100 ML BOTTLE IV SCH (20:13)
[2018-08-14] MEDS: ONDANSETRON 4 MG/2 ML VIAL IV PRN (22:15)
[2018-08-15] MEDS: LACTULOSE 20 GM/30 ML UDCUP PO SCH ×3 (00:13→17:18)
[2018-08-15] MEDS: INSULIN REGULAR 100 UNIT/ML SUBCUT SCH ×6 (00:22→20:30)
[2018-08-15] MEDS: ACETYLCYSTEINE 20% 800 MG/4 ML VIAL RESP TX SCH ×3 (01:13→15:44)
[2018-08-15] MEDS: ALBUTEROL/IPRATROPIUM 3 ML NEB RESP TX SCH ×4 (01:13→20:00)
[2018-08-15 04:28] LABS: ABG Base Excess -0.5 MMOL/L (-2.5-2.5); ABG Oxygen Saturation 95.1 % (95-100); ABG PCO2 37.3 MM HG (35-48); ABG PH 7.414 (7.35-7.45); ABG PO2 72.5 MM HG (80-95); ABG TCO2 22.1 MMOL/L (23-27); Pt O2 Delivery Device Venturi Mask
[2018-08-15 05:23] LABS: Basophils % 0.4 % (0.0-0.8); Eosinophils # 0.1 10*3/uL (0.0-0.87); Hematocrit 24.3 VOL% (42.0-52.0); Hemoglobin 7.8 GM/DL (14.0-18.0); Immature Granulocytes % 1.6 %; Immature Granulocytes Absolute 0.09 #; Lymphocytes # 0.6 10*3/uL (1.4-4.0); Lymphocytes % 9.9 % (21.2-54.2); Mean Corpuscular HGB Conc 32.1 GM/DL (32-36); Mean Corpuscular Hemoglobin 35 PG (27-34); Mean Corpuscular Volume 108.5 FL (87-102); Mean Platelet Volume 11.2 FL (9.6-12.0); Monocytes # 0.4 10*3/uL (0.11-0.8); Monocytes % 6.6 % (1.7-12.7); Neutrophils # 4.5 10*3/uL (1.4-7.4); Neutrophils % 79.5 % (38.7-73.9); Red Blood Count 2.24 MC/CUMM (3.8-5.5); Red Cell Distribution Width 22.2 % (9.3-17.3); White Blood Count 5.6 T/CUMM (4-12)
[2018-08-15 05:27] LABS: Platelet Count 36 T/CUMM (130-400)
[2018-08-15 05:48] LABS: Bilirubin,Total 8.4 MG/DL (0.2-1.0); Calcium 10.1 MG/DL (8.5-10.1); Osmolality,Calculated 303.3 MOS/KG (273-304); Potassium 3.3 MMOL/L (3.5-5.1); Total Protein 5.4 G/DL (6.4-8.3)
[2018-08-15 06:01] LABS: Platelet Estimate Decreased; Polychromasia Few
[2018-08-15 06:02] LABS: Hypochromasia Slight
[2018-08-15] MEDS: ERYTHROMYCIN ETHYLSUCCINATE 40 MG/ML 100 ML/BOTTLE PER TUBE SCH ×2 (10:31→21:59)
[2018-08-15] MEDS: FOLIC ACID 0.4 MG TABLET PO SCH (10:31)
[2018-08-15] MEDS: RIFAXIMIN 550 MG TABLET NG SCH ×2 (10:31→21:59)
[2018-08-15] MEDS: BACITRACIN OINT 0.9 GM PACK TOP SCH (10:31)
[2018-08-15] MEDS: INSULIN GLARGINE 100 UNIT/ML SUBCUT SCH (10:38)
[2018-08-15] MEDS: FAMOTIDINE 20 MG/2 ML VIAL IV SCH (10:39)
[2018-08-15] MEDS: NICOTINE 14 MG/24 HR PATCH TRANSDERM SCH (14:46)
[2018-08-15] MEDS: FLUCONAZOLE INJ 100 MG in IV BAG 1 EACH IV SCH (19:06)
[2018-08-16] MEDS: LACTULOSE 20 GM/30 ML UDCUP PO SCH ×4 (00:54→22:00)
[2018-08-16] MEDS: INSULIN REGULAR 100 UNIT/ML SUBCUT SCH ×6 (00:54→22:00)
[2018-08-16 04:08] LABS: Basophils % 0.4 % (0.0-0.8); Eosinophils # 0.1 10*3/uL (0.0-0.87); Eosinophils % 1.6 % (0.00-10.9); Hemoglobin 7.8 GM/DL (14.0-18.0); Immature Granulocytes Absolute 0.07 #; Lymphocytes # 0.6 10*3/uL (1.4-4.0); Lymphocytes % 8.9 % (21.2-54.2); Mean Corpuscular HGB Conc 31.2 GM/DL (32-36); Mean Corpuscular Hemoglobin 34 PG (27-34); Mean Corpuscular Volume 109.2 FL (87-102); Mean Platelet Volume 11.8 FL (9.6-12.0); Monocytes # 0.6 10*3/uL (0.11-0.8); Monocytes % 8.5 % (1.7-12.7); Neutrophils # 5.5 10*3/uL (1.4-7.4); Neutrophils % 79.6 % (38.7-73.9); Red Blood Count 2.29 MC/CUMM (3.8-5.5); Red Cell Distribution Width 21.5 % (9.3-17.3)
[2018-08-16 04:18] LABS: Platelet Count 30 T/CUMM (130-400)
[2018-08-16 04:44] LABS: Albumin 1.9 G/DL (3.4-5.0); Bilirubin,Total 7.9 MG/DL (0.2-1.0); Calcium 9.3 MG/DL (8.5-10.1); Osmolality,Calculated 302.5 MOS/KG (273-304); Potassium 3.3 MMOL/L (3.5-5.1); Total Protein 5.2 G/DL (6.4-8.3)
[2018-08-16 04:48] LABS: Anisocytosis 1+; Microcytosis 1+; Platelet Estimate Decreased
[2018-08-16] MEDS: ALBUTEROL/IPRATROPIUM 3 ML NEB RESP TX SCH ×4 (06:53→19:40)
[2018-08-16] MEDS: ACETYLCYSTEINE 20% 800 MG/4 ML VIAL RESP TX SCH ×3 (06:53→15:39)
[2018-08-16] MEDS: NICOTINE 14 MG/24 HR PATCH TRANSDERM SCH (09:14)
[2018-08-16] MEDS: FAMOTIDINE 20 MG/2 ML VIAL IV SCH (09:15)
[2018-08-16] MEDS: INSULIN GLARGINE 100 UNIT/ML SUBCUT SCH (09:15)
[2018-08-16] MEDS: BACITRACIN OINT 0.9 GM PACK TOP SCH (09:15)
[2018-08-16] MEDS: ERYTHROMYCIN ETHYLSUCCINATE 40 MG/ML 100 ML/BOTTLE PER TUBE SCH ×2 (09:16→22:01)
[2018-08-16] MEDS: FOLIC ACID 0.4 MG TABLET PO SCH (09:16)
[2018-08-16] MEDS: RIFAXIMIN 550 MG TABLET NG SCH ×2 (09:16→22:01)
[2018-08-16] MEDS ORDERED: PHENOL 1.4% THROAT SPRAY 177 ML BOTTLE PO PRN (10:10)
[2018-08-16] MEDS: ONDANSETRON 4 MG/2 ML VIAL IV PRN (12:16)
[2018-08-16] MEDS: MEPERIDINE 25 MG/1 ML VIAL IV PRN (19:49)
[2018-08-17] MEDS: ALBUTEROL/IPRATROPIUM 3 ML NEB RESP TX SCH ×4 (00:14→20:34)
[2018-08-17] MEDS: ACETYLCYSTEINE 20% 800 MG/4 ML VIAL RESP TX SCH ×3 (00:14→14:17)
[2018-08-17] MEDS: INSULIN REGULAR 100 UNIT/ML SUBCUT SCH ×5 (01:58→17:54)
[2018-08-17] MEDS: MEPERIDINE 25 MG/1 ML VIAL IV PRN ×3 (02:05→15:21)
[2018-08-17 06:18] LABS: Basophils % 0.6 % (0.0-0.8); Eosinophils # 0.1 10*3/uL (0.0-0.87); Eosinophils % 2.7 % (0.00-10.9); Hematocrit 24.5 VOL% (42.0-52.0); Hemoglobin 7.8 GM/DL (14.0-18.0); Immature Granulocytes % 0.8 %; Immature Granulocytes Absolute 0.04 #; Lymphocytes # 0.7 10*3/uL (1.4-4.0); Lymphocytes % 13.4 % (21.2-54.2); Mean Corpuscular HGB Conc 31.8 GM/DL (32-36); Mean Corpuscular Hemoglobin 35 PG (27-34); Mean Corpuscular Volume 108.9 FL (87-102); Mean Platelet Volume 11.9 FL (9.6-12.0); Monocytes # 0.5 10*3/uL (0.11-0.8); Monocytes % 9.7 % (1.7-12.7); Neutrophils # 3.8 10*3/uL (1.4-7.4); Neutrophils % 72.8 % (38.7-73.9); Red Blood Count 2.25 MC/CUMM (3.8-5.5); Red Cell Distribution Width 20.1 % (9.3-17.3); White Blood Count 5.2 T/CUMM (4-12)
[2018-08-17 06:19] LABS: Platelet Count 27 T/CUMM (130-400)
[2018-08-17 06:34] LABS: Albumin 1.9 G/DL (3.4-5.0); Bilirubin,Total 7.1 MG/DL (0.2-1.0); Calcium 9.1 MG/DL (8.5-10.1); Osmolality,Calculated 293.8 MOS/KG (273-304); Potassium 3.3 MMOL/L (3.5-5.1); Total Protein 5.2 G/DL (6.4-8.3)
[2018-08-17 06:45] LABS: Hypochromasia Slight; Macrocytosis 1+
[2018-08-17 06:46] LABS: Acanthocytes Few; Platelet Estimate Decreased
[2018-08-17] MEDS: LACTULOSE 20 GM/30 ML UDCUP PO SCH ×2 (09:53→21:22)
[2018-08-17] MEDS: MULTIVITAMIN (CENTRUM) TABLET PO SCH (09:54)
[2018-08-17] MEDS: FOLIC ACID 0.4 MG TABLET PO SCH (09:54)
[2018-08-17] MEDS: RIFAXIMIN 550 MG TABLET NG SCH ×2 (09:54→21:22)
[2018-08-17] MEDS: NICOTINE 14 MG/24 HR PATCH TRANSDERM SCH (09:54)
[2018-08-17] MEDS: BACITRACIN OINT 0.9 GM PACK TOP SCH (09:54)
[2018-08-17] MEDS: FAMOTIDINE 20 MG/2 ML VIAL IV SCH (09:55)
[2018-08-17] MEDS: INSULIN GLARGINE 100 UNIT/ML SUBCUT SCH (09:55)
[2018-08-17] MEDS: ERYTHROMYCIN ETHYLSUCCINATE 40 MG/ML 100 ML/BOTTLE PER TUBE SCH ×2 (10:44→23:41)
[2018-08-18] MEDS: ACETYLCYSTEINE 20% 800 MG/4 ML VIAL RESP TX SCH ×4 (00:03→23:58)
[2018-08-18] MEDS: ALBUTEROL/IPRATROPIUM 3 ML NEB RESP TX SCH ×5 (00:04→23:59)
[2018-08-18] MEDS: INSULIN REGULAR 100 UNIT/ML SUBCUT SCH ×4 (00:59→18:48)
[2018-08-18 04:50] LABS: Basophils % 0.7 % (0.0-0.8); Eosinophils # 0.1 10*3/uL (0.0-0.87); Eosinophils % 3.5 % (0.00-10.9); Hematocrit 24.7 VOL% (42.0-52.0); Hemoglobin 7.8 GM/DL (14.0-18.0); Immature Granulocytes Absolute 0.04 #; Lymphocytes # 0.7 10*3/uL (1.4-4.0); Lymphocytes % 17.4 % (21.2-54.2); Mean Corpuscular HGB Conc 31.6 GM/DL (32-36); Mean Corpuscular Hemoglobin 34 PG (27-34); Mean Corpuscular Volume 108.3 FL (87-102); Mean Platelet Volume 11.7 FL (9.6-12.0); Monocytes # 0.4 10*3/uL (0.11-0.8); Monocytes % 10.7 % (1.7-12.7); Neutrophils # 2.7 10*3/uL (1.4-7.4); Neutrophils % 66.7 % (38.7-73.9); Red Blood Count 2.28 MC/CUMM (3.8-5.5); Red Cell Distribution Width 19.3 % (9.3-17.3)
[2018-08-18 05:08] LABS: Platelet Count 30 T/CUMM (130-400)
[2018-08-18 05:58] LABS: Platelet Estimate Decreased; Polychromasia Few
[2018-08-18] MEDS: NICOTINE 14 MG/24 HR PATCH TRANSDERM SCH (09:47)
[2018-08-18] MEDS: FOLIC ACID 0.4 MG TABLET PO SCH (09:47)
[2018-08-18] MEDS: MULTIVITAMIN (CENTRUM) TABLET PO SCH (09:47)
[2018-08-18] MEDS: RIFAXIMIN 550 MG TABLET NG SCH ×2 (09:47→20:38)
[2018-08-18] MEDS: LACTULOSE 20 GM/30 ML UDCUP PO SCH ×2 (09:48→20:37)
[2018-08-18] MEDS: INSULIN GLARGINE 100 UNIT/ML SUBCUT SCH (09:48)
[2018-08-18] MEDS: ERYTHROMYCIN ETHYLSUCCINATE 40 MG/ML 100 ML/BOTTLE PER TUBE SCH ×2 (09:48→21:43)
[2018-08-18] MEDS: FAMOTIDINE 20 MG/2 ML VIAL IV SCH (09:48)
[2018-08-18] MEDS: BACITRACIN OINT 0.9 GM PACK TOP SCH (09:49)
[2018-08-18] MEDS: MEPERIDINE 25 MG/1 ML VIAL IV PRN (18:48)
[2018-08-19] MEDS: INSULIN REGULAR 100 UNIT/ML SUBCUT SCH ×5 (00:58→18:37)
[2018-08-19 04:43] LABS: Basophils % 0.6 % (0.0-0.8); Eosinophils # 0.1 10*3/uL (0.0-0.87); Eosinophils % 2.8 % (0.00-10.9); Hematocrit 25.2 VOL% (42.0-52.0); Hemoglobin 8.1 GM/DL (14.0-18.0); Immature Granulocytes % 1.3 %; Immature Granulocytes Absolute 0.04 #; Lymphocytes # 0.7 10*3/uL (1.4-4.0); Lymphocytes % 22.2 % (21.2-54.2); Mean Corpuscular HGB Conc 32.1 GM/DL (32-36); Mean Corpuscular Hemoglobin 34 PG (27-34); Mean Corpuscular Volume 106.8 FL (87-102); Mean Platelet Volume 11.4 FL (9.6-12.0); Monocytes # 0.5 10*3/uL (0.11-0.8); Monocytes % 14.6 % (1.7-12.7); Neutrophils # 1.9 10*3/uL (1.4-7.4); Neutrophils % 58.5 % (38.7-73.9); Red Blood Count 2.36 MC/CUMM (3.8-5.5); Red Cell Distribution Width 18.6 % (9.3-17.3); White Blood Count 3.2 T/CUMM (4-12)
[2018-08-19 04:55] LABS: Calcium 8.8 MG/DL (8.5-10.1); Osmolality,Calculated 287.7 MOS/KG (273-304); Potassium 3.3 MMOL/L (3.5-5.1)
[2018-08-19 05:24] LABS: Platelet Count 33 T/CUMM (130-400)
[2018-08-19] MEDS: ALBUTEROL/IPRATROPIUM 3 ML NEB RESP TX SCH ×3 (07:10→18:40)
[2018-08-19] MEDS: ACETYLCYSTEINE 20% 800 MG/4 ML VIAL RESP TX SCH ×3 (07:10→23:10)
[2018-08-19] MEDS: MULTIVITAMIN (CENTRUM) TABLET PO SCH (10:08)
[2018-08-19] MEDS: LACTULOSE 20 GM/30 ML UDCUP PO SCH ×2 (10:08→20:31)
[2018-08-19] MEDS: NICOTINE 14 MG/24 HR PATCH TRANSDERM SCH (10:08)
[2018-08-19] MEDS: INSULIN GLARGINE 100 UNIT/ML SUBCUT SCH (10:08)
[2018-08-19] MEDS: RIFAXIMIN 550 MG TABLET NG SCH ×2 (10:08→20:34)
[2018-08-19] MEDS: FOLIC ACID 0.4 MG TABLET PO SCH (10:08)
[2018-08-19] MEDS: FAMOTIDINE 20 MG/2 ML VIAL IV SCH (10:09)
[2018-08-19] MEDS: ERYTHROMYCIN ETHYLSUCCINATE 40 MG/ML 100 ML/BOTTLE PER TUBE SCH ×2 (10:09→20:35)
[2018-08-19] MEDS ORDERED: POTASSIUM CHLORIDE 20 MEQ PACK PO ONE (13:00)
[2018-08-19] MEDS: BACITRACIN OINT 0.9 GM PACK TOP SCH (13:23)
[2018-08-19] MEDS: MEPERIDINE 25 MG/1 ML VIAL IV PRN ×2 (17:42→22:11)
[2018-08-20] MEDS: INSULIN REGULAR 100 UNIT/ML SUBCUT SCH ×4 (02:02→18:47)
[2018-08-20] MEDS: MEPERIDINE 25 MG/1 ML VIAL IV PRN ×4 (03:37→23:57)
[2018-08-20 05:28] LABS: Basophils % 0.8 % (0.0-0.8); Eosinophils # 0.1 10*3/uL (0.0-0.87); Hematocrit 26.4 VOL% (42.0-52.0); Hemoglobin 8.3 GM/DL (14.0-18.0); Immature Granulocytes % 1.1 %; Immature Granulocytes Absolute 0.03 #; Lymphocytes # 0.6 10*3/uL (1.4-4.0); Lymphocytes % 20.8 % (21.2-54.2); Mean Corpuscular HGB Conc 31.4 GM/DL (32-36); Mean Corpuscular Hemoglobin 35 PG (27-34); Mean Corpuscular Volume 110.5 FL (87-102); Mean Platelet Volume 11.6 FL (9.6-12.0); Monocytes # 0.4 10*3/uL (0.11-0.8); Monocytes % 13.6 % (1.7-12.7); Neutrophils # 1.6 10*3/uL (1.4-7.4); Neutrophils % 60.7 % (38.7-73.9); Red Blood Count 2.39 MC/CUMM (3.8-5.5); Red Cell Distribution Width 17.8 % (9.3-17.3); White Blood Count 2.7 T/CUMM (4-12)
[2018-08-20 05:38] LABS: Calcium 8.7 MG/DL (8.5-10.1); Osmolality,Calculated 285.7 MOS/KG (273-304); Potassium 3.6 MMOL/L (3.5-5.1)
[2018-08-20 05:39] LABS: Platelet Count 33 T/CUMM (130-400)
[2018-08-20 05:58] LABS: Burr Cells Slight; Hypochromasia 1+; Ovalocytes Slight; Platelet Estimate Decreased
[2018-08-20] MEDS: ALBUTEROL/IPRATROPIUM 3 ML NEB RESP TX SCH ×4 (07:15→19:28)
[2018-08-20] MEDS: ACETYLCYSTEINE 20% 800 MG/4 ML VIAL RESP TX SCH ×2 (07:15→13:45)
[2018-08-20] MEDS: FAMOTIDINE 20 MG/2 ML VIAL IV SCH (09:28)
[2018-08-20] MEDS: RIFAXIMIN 550 MG TABLET NG SCH ×2 (09:29→21:55)
[2018-08-20] MEDS: FOLIC ACID 0.4 MG TABLET PO SCH (09:30)
[2018-08-20] MEDS: MULTIVITAMIN (CENTRUM) TABLET PO SCH (09:30)
[2018-08-20] MEDS: BACITRACIN OINT 0.9 GM PACK TOP SCH (09:30)
[2018-08-20] MEDS: INSULIN GLARGINE 100 UNIT/ML SUBCUT SCH (09:31)
[2018-08-20] MEDS: NICOTINE 14 MG/24 HR PATCH TRANSDERM SCH (09:31)
[2018-08-20] MEDS: LACTULOSE 20 GM/30 ML UDCUP PO SCH ×2 (09:31→21:54)
[2018-08-20] MEDS: ERYTHROMYCIN ETHYLSUCCINATE 40 MG/ML 100 ML/BOTTLE PER TUBE SCH ×2 (10:01→21:53)
[2018-08-20] MEDS ORDERED: MAGNESIUM SULF RIDER 2 GM in PREMIX 1 EACH IV ONE (12:48)
[2018-08-20] MEDS ORDERED: FUROSEMIDE 40 MG/4 ML VIAL IV ONE (12:50)
[2018-08-20] MEDS: ALUMINUM/MAGNES/SIMETH MAX STR 30 ML UDCUP PO PRN (23:01)
[2018-08-21] MEDS: ACETYLCYSTEINE 20% 800 MG/4 ML VIAL RESP TX SCH ×3 (00:04→14:49)
[2018-08-21] MEDS: ALBUTEROL/IPRATROPIUM 3 ML NEB RESP TX SCH ×4 (00:04→20:04)
[2018-08-21] MEDS: INSULIN REGULAR 100 UNIT/ML SUBCUT SCH ×4 (04:39→19:24)
[2018-08-21] MEDS: MEPERIDINE 25 MG/1 ML VIAL IV PRN (04:49)
[2018-08-21 05:31] LABS: Calcium 8.7 MG/DL (8.5-10.1); Osmolality,Calculated 283.8 MOS/KG (273-304); Potassium 3.7 MMOL/L (3.5-5.1)
[2018-08-21 08:01] LABS: Basophils % 0.9 % (0.0-0.8); Eosinophils # 0.1 10*3/uL (0.0-0.87); Eosinophils % 3.1 % (0.00-10.9); Hematocrit 25.2 VOL% (42.0-52.0); Hemoglobin 7.9 GM/DL (14.0-18.0); Immature Granulocytes % 0.4 %; Immature Granulocytes Absolute 0.01 #; Lymphocytes # 0.5 10*3/uL (1.4-4.0); Lymphocytes % 23.1 % (21.2-54.2); Mean Corpuscular HGB Conc 31.3 GM/DL (32-36); Mean Corpuscular Hemoglobin 34 PG (27-34); Mean Corpuscular Volume 109.6 FL (87-102); Mean Platelet Volume 11.6 FL (9.6-12.0); Monocytes # 0.3 10*3/uL (0.11-0.8); Neutrophils # 1.4 10*3/uL (1.4-7.4); Neutrophils % 60.5 % (38.7-73.9); Red Cell Distribution Width 17.3 % (9.3-17.3); White Blood Count 2.3 T/CUMM (4-12)
[2018-08-21 08:04] LABS: Platelet Count 31 T/CUMM (130-400)
[2018-08-21] MEDS: LACTULOSE 20 GM/30 ML UDCUP PO SCH ×2 (08:08→22:48)
[2018-08-21] MEDS: BACITRACIN OINT 0.9 GM PACK TOP SCH (08:08)
[2018-08-21] MEDS: MULTIVITAMIN (CENTRUM) TABLET PO SCH (08:08)
[2018-08-21] MEDS: FOLIC ACID 0.4 MG TABLET PO SCH (08:08)
[2018-08-21] MEDS: RIFAXIMIN 550 MG TABLET NG SCH ×2 (08:08→22:48)
[2018-08-21] MEDS: NICOTINE 14 MG/24 HR PATCH TRANSDERM SCH (08:08)
[2018-08-21] MEDS: INSULIN GLARGINE 100 UNIT/ML SUBCUT SCH (08:09)
[2018-08-21] MEDS: FAMOTIDINE 20 MG/2 ML VIAL IV SCH (08:09)
[2018-08-21] MEDS: ERYTHROMYCIN ETHYLSUCCINATE 40 MG/ML 100 ML/BOTTLE PER TUBE SCH ×2 (08:10→21:52)
[2018-08-21 08:17] LABS: Burr Cells Slight; Hypochromasia 1+; Ovalocytes Slight; Platelet Estimate Decreased
[2018-08-21] MEDS ORDERED: FUROSEMIDE 40 MG/4 ML VIAL IV SCH (09:00)
[2018-08-21] MEDS ORDERED: SPIRONOLACTONE 25 MG TABLET PO SCH (09:00)
[2018-08-21] MEDS ORDERED: SPIRONOLACTONE 50 MG TABLET PO SCH (09:30)
[2018-08-21] MEDS ORDERED: SODIUM CHLORIDE 0.9% 1,000 ML IV PRN ×2 (12:02→16:04)
[2018-08-21] MEDS: PANTOPRAZOLE 40 MG TABLET PO SCH (12:29)
[2018-08-21] MEDS: ALUMINUM/MAGNES/SIMETH MAX STR 30 ML UDCUP PO PRN (17:41)
[2018-08-21] MEDS: oxyCODONE IR 5 MG TABLET PO PRN ×2 (17:51→22:48)
[2018-08-21] MEDS: FUROSEMIDE 40 MG TABLET PO SCH (17:51)
[2018-08-22] MEDS: ALBUTEROL/IPRATROPIUM 3 ML NEB RESP TX SCH ×4 (01:28→19:35)
[2018-08-22] MEDS: ACETYLCYSTEINE 20% 800 MG/4 ML VIAL RESP TX SCH ×3 (02:11→15:16)
[2018-08-22] MEDS: INSULIN REGULAR 100 UNIT/ML SUBCUT SCH ×4 (04:10→18:17)
[2018-08-22] MEDS: oxyCODONE IR 5 MG TABLET PO PRN ×4 (04:11→23:25)
[2018-08-22 07:41] LABS: Basophils % 1.5 % (0.0-0.8); Eosinophils # 0.1 10*3/uL (0.0-0.87); Eosinophils % 3.4 % (0.00-10.9); Hematocrit 25.1 VOL% (42.0-52.0); Hemoglobin 7.9 GM/DL (14.0-18.0); Immature Granulocytes Absolute 0.02 #; Lymphocytes # 0.6 10*3/uL (1.4-4.0); Lymphocytes % 29.4 % (21.2-54.2); Mean Corpuscular HGB Conc 31.5 GM/DL (32-36); Mean Corpuscular Hemoglobin 34 PG (27-34); Mean Corpuscular Volume 107.7 FL (87-102); Mean Platelet Volume 11.4 FL (9.6-12.0); Monocytes # 0.3 10*3/uL (0.11-0.8); Monocytes % 14.2 % (1.7-12.7); Neutrophils % 50.5 % (38.7-73.9); Red Blood Count 2.33 MC/CUMM (3.8-5.5); Red Cell Distribution Width 17.2 % (9.3-17.3)
[2018-08-22 07:54] LABS: Platelet Count 37 T/CUMM (130-400)
[2018-08-22 07:55] LABS: Calcium 8.6 MG/DL (8.5-10.1); Osmolality,Calculated 284.7 MOS/KG (273-304); Potassium 3.7 MMOL/L (3.5-5.1)
[2018-08-22 08:29] LABS: Hypochromasia 1+; Ovalocytes Slight; Platelet Estimate Decreased
[2018-08-22] MEDS: PANTOPRAZOLE 40 MG TABLET PO SCH (10:06)
[2018-08-22] MEDS: NICOTINE 14 MG/24 HR PATCH TRANSDERM SCH (10:06)
[2018-08-22] MEDS: MULTIVITAMIN (CENTRUM) TABLET PO SCH (10:06)
[2018-08-22] MEDS: FUROSEMIDE 40 MG TABLET PO SCH ×3 (10:06→18:22)
[2018-08-22] MEDS: INSULIN GLARGINE 100 UNIT/ML SUBCUT SCH (10:06)
[2018-08-22] MEDS: SPIRONOLACTONE 50 MG TABLET PO SCH ×2 (10:06→22:59)
[2018-08-22] MEDS: BACITRACIN OINT 0.9 GM PACK TOP SCH (10:06)
[2018-08-22] MEDS: LACTULOSE 20 GM/30 ML UDCUP PO SCH ×2 (10:06→21:17)
[2018-08-22] MEDS: RIFAXIMIN 550 MG TABLET NG SCH ×2 (10:06→22:59)
[2018-08-22] MEDS: FOLIC ACID 0.4 MG TABLET PO SCH (10:09)
[2018-08-22] MEDS ORDERED: LACTULOSE 20 GM/30 ML UDCUP PO ONE (18:25)
[2018-08-22] MEDS: ONDANSETRON 4 MG/2 ML VIAL IV PRN (20:09)
[2018-08-22] MEDS ORDERED: SODIUM PHOSPHATE ENEMA 133 ML BOTTLE RECTAL ONE (22:39)
[2018-08-23] MEDS: ALBUTEROL/IPRATROPIUM 3 ML NEB RESP TX SCH ×4 (00:21→20:18)
[2018-08-23] MEDS: ACETYLCYSTEINE 20% 800 MG/4 ML VIAL RESP TX SCH ×3 (00:21→16:38)
[2018-08-23] MEDS: INSULIN REGULAR 100 UNIT/ML SUBCUT SCH ×4 (01:53→18:35)
[2018-08-23 05:18] LABS: Albumin 1.9 G/DL (3.4-5.0); Bilirubin,Total 6.4 MG/DL (0.2-1.0); Calcium 8.6 MG/DL (8.5-10.1); Osmolality,Calculated 280.5 MOS/KG (273-304); Potassium 3.7 MMOL/L (3.5-5.1); Total Protein 5.2 G/DL (6.4-8.3)
[2018-08-23] MEDS: RIFAXIMIN 550 MG TABLET NG SCH (08:55)
[2018-08-23] MEDS: MULTIVITAMIN (CENTRUM) TABLET PO SCH (08:55)
[2018-08-23] MEDS: FUROSEMIDE 40 MG TABLET PO SCH ×2 (08:55→15:22)
[2018-08-23] MEDS: LACTULOSE 20 GM/30 ML UDCUP PO SCH ×2 (08:55→21:36)
[2018-08-23] MEDS: SPIRONOLACTONE 50 MG TABLET PO SCH ×2 (08:55→21:37)
[2018-08-23] MEDS: ZINC SULFATE 220 MG CAPSULE PO SCH (08:56)
[2018-08-23] MEDS: PANTOPRAZOLE 40 MG TABLET PO SCH (08:56)
[2018-08-23] MEDS: BACITRACIN OINT 0.9 GM PACK TOP SCH (08:56)
[2018-08-23] MEDS: NICOTINE 14 MG/24 HR PATCH TRANSDERM SCH (08:56)
[2018-08-23] MEDS: FOLIC ACID 0.4 MG TABLET PO SCH (08:56)
[2018-08-23] MEDS: INSULIN GLARGINE 100 UNIT/ML SUBCUT SCH (08:56)
[2018-08-23] MEDS: ONDANSETRON 4 MG/2 ML VIAL IV PRN ×3 (08:57→21:36)
[2018-08-23] MEDS: oxyCODONE IR 5 MG TABLET PO PRN ×3 (09:05→21:36)
[2018-08-23] MEDS: RIFAXIMIN 550 MG TABLET PO SCH (21:36)
[2018-08-24] MEDS: ACETYLCYSTEINE 20% 800 MG/4 ML VIAL RESP TX SCH ×3 (00:24→15:36)
[2018-08-24] MEDS: ALBUTEROL/IPRATROPIUM 3 ML NEB RESP TX SCH ×4 (00:24→19:43)
[2018-08-24] MEDS: diphenhydrAMINE CAP 25 MG CAPSULE PO PRN (02:03)
[2018-08-24] MEDS: INSULIN REGULAR 100 UNIT/ML SUBCUT SCH ×4 (02:03→18:02)
[2018-08-24] MEDS: LACTULOSE 20 GM/30 ML UDCUP PO SCH ×2 (08:35→20:53)
[2018-08-24] MEDS: NICOTINE 14 MG/24 HR PATCH TRANSDERM SCH (08:36)
[2018-08-24] MEDS: MULTIVITAMIN (CENTRUM) TABLET PO SCH (08:36)
[2018-08-24] MEDS: INSULIN GLARGINE 100 UNIT/ML SUBCUT SCH (08:36)
[2018-08-24] MEDS: FOLIC ACID 0.4 MG TABLET PO SCH (08:36)
[2018-08-24] MEDS: PANTOPRAZOLE 40 MG TABLET PO SCH (08:36)
[2018-08-24] MEDS: FUROSEMIDE 40 MG TABLET PO SCH ×2 (08:36→17:13)
[2018-08-24] MEDS: RIFAXIMIN 550 MG TABLET PO SCH ×2 (08:36→20:53)
[2018-08-24] MEDS: SPIRONOLACTONE 50 MG TABLET PO SCH ×2 (08:36→20:52)
[2018-08-24] MEDS: BACITRACIN OINT 0.9 GM PACK TOP SCH (08:36)
[2018-08-24] MEDS: ZINC SULFATE 220 MG CAPSULE PO SCH (08:36)
[2018-08-24] MEDS: oxyCODONE IR 5 MG TABLET PO PRN ×2 (14:50→20:58)
[2018-08-24 19:46] LABS: Apearance,Urine CLEAR (Clear); Bacteria,Urine Occasional /HPF (Few); Bilirubin,Urine Negative (Negative); Blood, Urine Small mg/dL (Negative); Glucose,Urine (UA) Negative (Negative); Ketones,Urine Negative (Negative); Mucus,Urine Occasional /LPF (Occasional); Nitrite,Urine Positive (Negative); Protein,Urine Negative; RBC,Urine 4 /HPF (0-4); Urine Color Yellow (Yellow); Urine Specific Gravity 1.005 (1.001-1.035); Urine Urobilinogen < 2.0 EU/DL (0.2-1.0); WBC,Urine 31 /HPF (0-6)
[2018-08-24] MEDS: MEPERIDINE 25 MG/1 ML VIAL IV PRN (22:07)
[2018-08-25] MEDS: ACETYLCYSTEINE 20% 800 MG/4 ML VIAL RESP TX SCH ×3 (01:16→14:40)
[2018-08-25] MEDS: ALBUTEROL/IPRATROPIUM 3 ML NEB RESP TX SCH ×4 (01:19→19:13)
[2018-08-25] MEDS: MEPERIDINE 25 MG/1 ML VIAL IV PRN ×3 (02:24→23:39)
[2018-08-25] MEDS: INSULIN REGULAR 100 UNIT/ML SUBCUT SCH ×4 (02:51→18:05)
[2018-08-25] MEDS: diphenhydrAMINE CAP 25 MG CAPSULE PO PRN (02:57)
[2018-08-25 05:39] LABS: Basophils % 0.6 % (0.0-0.8); Eosinophils # 0.1 10*3/uL (0.0-0.87); Eosinophils % 3.2 % (0.00-10.9); Hematocrit 26.6 VOL% (42.0-52.0); Hemoglobin 8.3 GM/DL (14.0-18.0); Immature Granulocytes % 0.6 %; Immature Granulocytes Absolute 0.02 #; Lymphocytes # 0.9 10*3/uL (1.4-4.0); Lymphocytes % 26.8 % (21.2-54.2); Mean Corpuscular HGB Conc 31.2 GM/DL (32-36); Mean Corpuscular Hemoglobin 33 PG (27-34); Mean Corpuscular Volume 105.6 FL (87-102); Monocytes # 0.4 10*3/uL (0.11-0.8); Monocytes % 11.7 % (1.7-12.7); Neutrophils # 1.8 10*3/uL (1.4-7.4); Neutrophils % 57.1 % (38.7-73.9); Red Blood Count 2.52 MC/CUMM (3.8-5.5); White Blood Count 3.2 T/CUMM (4-12)
[2018-08-25 05:47] LABS: Platelet Count 29 T/CUMM (130-400)
[2018-08-25 06:08] LABS: Eosinophils 2 % (0-10); Lymphocytes 32 % (20-55); Platelet Estimate Decreased; Segmented Neutrophils 60 % (50-85); Total Cells Counted 100
[2018-08-25 06:09] LABS: Albumin 2.1 G/DL (3.4-5.0); Bilirubin,Total 6.7 MG/DL (0.2-1.0); Calcium 8.1 MG/DL (8.5-10.1); Hypochromasia 1+; Osmolality,Calculated 282.5 MOS/KG (273-304); Ovalocytes Slight; Potassium 3.3 MMOL/L (3.5-5.1); Total Protein 5.2 G/DL (6.4-8.3)
[2018-08-25] MEDS: FUROSEMIDE 40 MG TABLET PO SCH ×2 (09:00→17:22)
[2018-08-25] MEDS: ZINC SULFATE 220 MG CAPSULE PO SCH (09:00)
[2018-08-25] MEDS: RIFAXIMIN 550 MG TABLET PO SCH ×2 (09:00→21:15)
[2018-08-25] MEDS: NICOTINE 14 MG/24 HR PATCH TRANSDERM SCH (09:01)
[2018-08-25] MEDS: SPIRONOLACTONE 50 MG TABLET PO SCH ×2 (09:01→21:15)
[2018-08-25] MEDS: LACTULOSE 20 GM/30 ML UDCUP PO SCH ×2 (09:01→21:15)
[2018-08-25] MEDS: MULTIVITAMIN (CENTRUM) TABLET PO SCH (09:01)
[2018-08-25] MEDS: FOLIC ACID 0.4 MG TABLET PO SCH (09:01)
[2018-08-25] MEDS: PANTOPRAZOLE 40 MG TABLET PO SCH (09:01)
[2018-08-25] MEDS: INSULIN GLARGINE 100 UNIT/ML SUBCUT SCH (09:08)
[2018-08-25] MEDS: CIPROFLOXACIN 500 MG TABLET PO SCH ×2 (09:27→21:15)
[2018-08-25] MEDS ORDERED: POTASSIUM CHLORIDE 20 MEQ TABLET PO ONE (13:11)
[2018-08-25] MEDS: BACITRACIN OINT 0.9 GM PACK TOP SCH (13:48)
[2018-08-25] MEDS ORDERED: TUBERCULIN SKIN TEST 0.1 ML SYRINGE INTRADERM ONE (17:00)
[2018-08-25] MEDS ORDERED: SODIUM PHOSPHATE ENEMA 133 ML BOTTLE RECTAL PRN (23:34)
[2018-08-26] MEDS: ACETYLCYSTEINE 20% 800 MG/4 ML VIAL RESP TX SCH ×3 (00:03→13:40)
[2018-08-26] MEDS: ALBUTEROL/IPRATROPIUM 3 ML NEB RESP TX SCH ×4 (00:03→19:17)
[2018-08-26] MEDS: INSULIN REGULAR 100 UNIT/ML SUBCUT SCH ×4 (01:03→19:17)
[2018-08-26 06:10] LABS: Basophils % 0.9 % (0.0-0.8); Eosinophils # 0.1 10*3/uL (0.0-0.87); Eosinophils % 2.6 % (0.00-10.9); Hematocrit 25.3 VOL% (42.0-52.0); Hemoglobin 7.9 GM/DL (14.0-18.0); Immature Granulocytes % 0.4 %; Immature Granulocytes Absolute 0.01 #; Lymphocytes # 0.8 10*3/uL (1.4-4.0); Lymphocytes % 33.3 % (21.2-54.2); Mean Corpuscular HGB Conc 31.2 GM/DL (32-36); Mean Corpuscular Hemoglobin 33 PG (27-34); Mean Corpuscular Volume 105.9 FL (87-102); Mean Platelet Volume 9.7 FL (9.6-12.0); Monocytes # 0.3 10*3/uL (0.11-0.8); Neutrophils # 1.2 10*3/uL (1.4-7.4); Neutrophils % 49.8 % (38.7-73.9); Red Blood Count 2.39 MC/CUMM (3.8-5.5); Red Cell Distribution Width 15.9 % (9.3-17.3); White Blood Count 2.3 T/CUMM (4-12)
[2018-08-26 06:12] LABS: Platelet Count 29 T/CUMM (130-400)
[2018-08-26 06:28] LABS: Calcium 7.8 MG/DL (8.5-10.1); Hypochromasia 1+; Osmolality,Calculated 277.5 MOS/KG (273-304); Potassium 3.5 MMOL/L (3.5-5.1)
[2018-08-26 06:29] LABS: Macrocytosis Slight; Platelet Estimate Decreased
[2018-08-26] MEDS: NICOTINE 14 MG/24 HR PATCH TRANSDERM SCH (08:23)
[2018-08-26] MEDS: LACTULOSE 20 GM/30 ML UDCUP PO SCH ×2 (08:23→20:13)
[2018-08-26] MEDS: CIPROFLOXACIN 500 MG TABLET PO SCH (08:26)
[2018-08-26] MEDS: RIFAXIMIN 550 MG TABLET PO SCH ×2 (08:27→20:13)
[2018-08-26] MEDS: ZINC SULFATE 220 MG CAPSULE PO SCH (08:27)
[2018-08-26] MEDS: FOLIC ACID 0.4 MG TABLET PO SCH (08:27)
[2018-08-26] MEDS: SPIRONOLACTONE 50 MG TABLET PO SCH ×2 (08:27→20:13)
[2018-08-26] MEDS: INSULIN GLARGINE 100 UNIT/ML SUBCUT SCH (08:27)
[2018-08-26] MEDS: MULTIVITAMIN (CENTRUM) TABLET PO SCH (08:27)
[2018-08-26] MEDS: FUROSEMIDE 40 MG TABLET PO SCH ×2 (08:27→16:59)
[2018-08-26] MEDS: PANTOPRAZOLE 40 MG TABLET PO SCH (08:27)
[2018-08-26] MEDS: BACITRACIN OINT 0.9 GM PACK TOP SCH (11:20)
[2018-08-26] MEDS: ONDANSETRON 4 MG/2 ML VIAL IV PRN (11:27)
[2018-08-26] MEDS: ERTAPENEM 1,000 MG in SODIUM CHLORIDE 0.9% 100 ML IV SCH (12:43)
[2018-08-26] MEDS ORDERED: PROMETHAZINE INJ 12.5 MG in SODIUM CHLORIDE 0.9% 50 ML IV ONE (13:33)
[2018-08-26] MEDS: oxyCODONE IR 5 MG TABLET PO PRN (20:13)
[2018-08-26] MEDS: MEPERIDINE 25 MG/1 ML VIAL IV PRN (22:16)
[2018-08-27] MEDS: INSULIN REGULAR 100 UNIT/ML SUBCUT SCH ×4 (00:13→18:13)
[2018-08-27] MEDS: ACETYLCYSTEINE 20% 800 MG/4 ML VIAL RESP TX SCH ×3 (00:36→14:17)
[2018-08-27] MEDS: ALBUTEROL/IPRATROPIUM 3 ML NEB RESP TX SCH ×4 (00:36→19:42)
[2018-08-27] MEDS: MEPERIDINE 25 MG/1 ML VIAL IV PRN ×2 (02:34→21:33)
[2018-08-27] MEDS: BACITRACIN OINT 0.9 GM PACK TOP SCH (09:08)
[2018-08-27] MEDS: FUROSEMIDE 40 MG TABLET PO SCH ×2 (09:08→16:37)
[2018-08-27] MEDS: MULTIVITAMIN (CENTRUM) TABLET PO SCH (09:08)
[2018-08-27] MEDS: FOLIC ACID 0.4 MG TABLET PO SCH (09:08)
[2018-08-27] MEDS: SPIRONOLACTONE 50 MG TABLET PO SCH ×2 (09:08→21:20)
[2018-08-27] MEDS: RIFAXIMIN 550 MG TABLET PO SCH ×2 (09:08→21:20)
[2018-08-27] MEDS: PANTOPRAZOLE 40 MG TABLET PO SCH (09:08)
[2018-08-27] MEDS: ZINC SULFATE 220 MG CAPSULE PO SCH (09:08)
[2018-08-27] MEDS: NICOTINE 14 MG/24 HR PATCH TRANSDERM SCH (09:08)
[2018-08-27] MEDS: LACTULOSE 20 GM/30 ML UDCUP PO SCH ×2 (09:09→21:20)
[2018-08-27] MEDS: INSULIN GLARGINE 100 UNIT/ML SUBCUT SCH (09:15)
[2018-08-27] MEDS: ERTAPENEM 1,000 MG in SODIUM CHLORIDE 0.9% 100 ML IV SCH (11:42)
[2018-08-28] MEDS: ACETYLCYSTEINE 20% 800 MG/4 ML VIAL RESP TX SCH ×3 (00:05→14:01)
[2018-08-28] MEDS: ALBUTEROL/IPRATROPIUM 3 ML NEB RESP TX SCH ×4 (00:05→19:46)
[2018-08-28] MEDS: MELATONIN 3 MG TABLET PO PRN (00:08)
[2018-08-28] MEDS: INSULIN REGULAR 100 UNIT/ML SUBCUT SCH ×3 (02:02→12:36)
[2018-08-28] MEDS: MEPERIDINE 25 MG/1 ML VIAL IV PRN ×2 (03:24→15:42)
[2018-08-28] MEDS: NICOTINE 14 MG/24 HR PATCH TRANSDERM SCH (10:06)
[2018-08-28] MEDS: MULTIVITAMIN (CENTRUM) TABLET PO SCH (10:07)
[2018-08-28] MEDS: FOLIC ACID 0.4 MG TABLET PO SCH (10:08)
[2018-08-28] MEDS: SPIRONOLACTONE 50 MG TABLET PO SCH ×2 (10:08→20:27)
[2018-08-28] MEDS: FUROSEMIDE 40 MG TABLET PO SCH ×2 (10:08→15:42)
[2018-08-28] MEDS: ZINC SULFATE 220 MG CAPSULE PO SCH (10:08)
[2018-08-28] MEDS: PANTOPRAZOLE 40 MG TABLET PO SCH (10:08)
[2018-08-28] MEDS: INSULIN GLARGINE 100 UNIT/ML SUBCUT SCH (10:08)
[2018-08-28] MEDS: RIFAXIMIN 550 MG TABLET PO SCH ×2 (10:08→20:27)
[2018-08-28] MEDS: BACITRACIN OINT 0.9 GM PACK TOP SCH (10:09)
[2018-08-28] MEDS: LACTULOSE 20 GM/30 ML UDCUP PO SCH ×2 (10:14→20:27)
[2018-08-28] MEDS: ERTAPENEM 1,000 MG in SODIUM CHLORIDE 0.9% 100 ML IV SCH (12:36)
[2018-08-29] MEDS: ALBUTEROL/IPRATROPIUM 3 ML NEB RESP TX SCH ×4 (00:07→19:32)
[2018-08-29] MEDS: ACETYLCYSTEINE 20% 800 MG/4 ML VIAL RESP TX SCH ×4 (00:07→23:59)
[2018-08-29] MEDS: INSULIN REGULAR 100 UNIT/ML SUBCUT SCH ×4 (07:25→23:47)
[2018-08-29] MEDS: INSULIN GLARGINE 100 UNIT/ML SUBCUT SCH (08:45)
[2018-08-29] MEDS: LACTULOSE 20 GM/30 ML UDCUP PO SCH ×2 (08:45→20:25)
[2018-08-29] MEDS: NICOTINE 14 MG/24 HR PATCH TRANSDERM SCH (08:46)
[2018-08-29] MEDS: SPIRONOLACTONE 50 MG TABLET PO SCH ×2 (08:46→20:24)
[2018-08-29] MEDS: ZINC SULFATE 220 MG CAPSULE PO SCH (08:46)
[2018-08-29] MEDS: PANTOPRAZOLE 40 MG TABLET PO SCH (08:46)
[2018-08-29] MEDS: RIFAXIMIN 550 MG TABLET PO SCH ×2 (08:46→20:24)
[2018-08-29] MEDS: MULTIVITAMIN (CENTRUM) TABLET PO SCH (08:46)
[2018-08-29] MEDS: BACITRACIN OINT 0.9 GM PACK TOP SCH (08:46)
[2018-08-29] MEDS: FUROSEMIDE 40 MG TABLET PO SCH ×2 (08:47→17:21)
[2018-08-29] MEDS: FOLIC ACID 0.4 MG TABLET PO SCH (08:47)
[2018-08-29] MEDS: ERTAPENEM 1,000 MG in SODIUM CHLORIDE 0.9% 100 ML IV SCH (11:49)
[2018-08-29] MEDS: MEPERIDINE 25 MG/1 ML VIAL IV PRN ×2 (17:20→21:34)
[2018-08-30] MEDS: ALBUTEROL/IPRATROPIUM 3 ML NEB RESP TX SCH ×4 (01:00→19:00)
[2018-08-30] MEDS: MEPERIDINE 25 MG/1 ML VIAL IV PRN ×2 (04:11→20:30)
[2018-08-30] MEDS: INSULIN REGULAR 100 UNIT/ML SUBCUT SCH ×4 (06:22→23:53)
[2018-08-30] MEDS: ACETYLCYSTEINE 20% 800 MG/4 ML VIAL RESP TX SCH ×2 (07:55→14:18)
[2018-08-30] MEDS: NICOTINE 14 MG/24 HR PATCH TRANSDERM SCH (09:25)
[2018-08-30] MEDS: ZINC SULFATE 220 MG CAPSULE PO SCH (09:26)
[2018-08-30] MEDS: FOLIC ACID 0.4 MG TABLET PO SCH (09:26)
[2018-08-30] MEDS: FUROSEMIDE 40 MG TABLET PO SCH ×2 (09:26→16:17)
[2018-08-30] MEDS: SPIRONOLACTONE 50 MG TABLET PO SCH ×2 (09:27→20:21)
[2018-08-30] MEDS: INSULIN GLARGINE 100 UNIT/ML SUBCUT SCH (09:27)
[2018-08-30] MEDS: BACITRACIN OINT 0.9 GM PACK TOP SCH (09:27)
[2018-08-30] MEDS: RIFAXIMIN 550 MG TABLET PO SCH ×2 (09:27→20:22)
[2018-08-30] MEDS: PANTOPRAZOLE 40 MG TABLET PO SCH (09:27)
[2018-08-30] MEDS: MULTIVITAMIN (CENTRUM) TABLET PO SCH (09:27)
[2018-08-30] MEDS: LACTULOSE 20 GM/30 ML UDCUP PO SCH ×2 (09:30→20:22)
[2018-08-30] MEDS: ERTAPENEM 1,000 MG in SODIUM CHLORIDE 0.9% 100 ML IV SCH (11:50)
[2018-08-31] MEDS: MEPERIDINE 50 MG/1 ML VIAL IV PRN ×2 (02:33→11:26)
[2018-08-31] MEDS: INSULIN REGULAR 100 UNIT/ML SUBCUT SCH ×3 (06:04→18:11)
[2018-08-31] MEDS: ALBUTEROL/IPRATROPIUM 3 ML NEB RESP TX SCH ×4 (08:10→20:30)
[2018-08-31] MEDS: ACETYLCYSTEINE 20% 800 MG/4 ML VIAL RESP TX SCH ×2 (08:10)
[2018-08-31] MEDS: FUROSEMIDE 40 MG TABLET PO SCH ×2 (08:37→17:30)
[2018-08-31] MEDS: ZINC SULFATE 220 MG CAPSULE PO SCH (08:37)
[2018-08-31] MEDS: MULTIVITAMIN (CENTRUM) TABLET PO SCH (08:37)
[2018-08-31] MEDS: PANTOPRAZOLE 40 MG TABLET PO SCH (08:37)
[2018-08-31] MEDS: RIFAXIMIN 550 MG TABLET PO SCH ×2 (08:37→20:23)
[2018-08-31] MEDS: FOLIC ACID 0.4 MG TABLET PO SCH (08:37)
[2018-08-31] MEDS: SPIRONOLACTONE 50 MG TABLET PO SCH ×2 (08:37→20:22)
[2018-08-31] MEDS: LACTULOSE 20 GM/30 ML UDCUP PO SCH ×3 (08:37→21:17)
[2018-08-31] MEDS: BACITRACIN OINT 0.9 GM PACK TOP SCH (08:37)
[2018-08-31] MEDS: NICOTINE 14 MG/24 HR PATCH TRANSDERM SCH (08:38)
[2018-08-31] MEDS: INSULIN GLARGINE 100 UNIT/ML SUBCUT SCH (08:38)
[2018-08-31] MEDS: ERTAPENEM 1,000 MG in SODIUM CHLORIDE 0.9% 100 ML IV SCH (11:31)
[2018-08-31] MEDS ORDERED: LACTULOSE 20 GM/30 ML UDCUP PO PRN (16:00)
[2018-09-01] MEDS: INSULIN REGULAR 100 UNIT/ML SUBCUT SCH ×5 (00:21→23:46)
[2018-09-01] MEDS: ALBUTEROL/IPRATROPIUM 3 ML NEB RESP TX SCH ×4 (01:39→19:40)
[2018-09-01] MEDS: LACTULOSE 20 GM/30 ML UDCUP PO SCH ×3 (02:05→11:56)
[2018-09-01] MEDS: NICOTINE 14 MG/24 HR PATCH TRANSDERM SCH (08:33)
[2018-09-01] MEDS: FOLIC ACID 0.4 MG TABLET PO SCH (08:33)
[2018-09-01] MEDS: BACITRACIN OINT 0.9 GM PACK TOP SCH (08:33)
[2018-09-01] MEDS: MULTIVITAMIN (CENTRUM) TABLET PO SCH (08:33)
[2018-09-01] MEDS: ZINC SULFATE 220 MG CAPSULE PO SCH (08:33)
[2018-09-01] MEDS: FUROSEMIDE 40 MG TABLET PO SCH ×2 (08:33→17:31)
[2018-09-01] MEDS: PANTOPRAZOLE 40 MG TABLET PO SCH (08:33)
[2018-09-01] MEDS: SPIRONOLACTONE 50 MG TABLET PO SCH ×2 (08:34→20:32)
[2018-09-01] MEDS: INSULIN GLARGINE 100 UNIT/ML SUBCUT SCH (08:34)
[2018-09-01] MEDS: RIFAXIMIN 550 MG TABLET PO SCH ×2 (08:34→20:32)
[2018-09-01] MEDS: ERTAPENEM 1,000 MG in SODIUM CHLORIDE 0.9% 100 ML IV SCH (12:00)
[2018-09-01] MEDS: MEPERIDINE 50 MG/1 ML VIAL IV PRN (19:28)
[2018-09-01] MEDS: MELATONIN 3 MG TABLET PO PRN (23:34)
[2018-09-02] MEDS: ALBUTEROL/IPRATROPIUM 3 ML NEB RESP TX SCH ×3 (00:35→14:48)
[2018-09-02] MEDS: MEPERIDINE 50 MG/1 ML VIAL IV PRN (01:09)
[2018-09-02 04:38] LABS: Basophils % 0.5 % (0.0-0.8); Eosinophils # 0.1 10*3/uL (0.0-0.87); Eosinophils % 5.3 % (0.00-10.9); Hemoglobin 7.3 GM/DL (14.0-18.0); Immature Granulocytes % 0.5 %; Immature Granulocytes Absolute 0.01 #; Lymphocytes # 0.8 10*3/uL (1.4-4.0); Lymphocytes % 39.7 % (21.2-54.2); Mean Corpuscular HGB Conc 30.4 GM/DL (32-36); Mean Corpuscular Hemoglobin 32 PG (27-34); Mean Corpuscular Volume 105.3 FL (87-102); Mean Platelet Volume 10.7 FL (9.6-12.0); Monocytes # 0.3 10*3/uL (0.11-0.8); Monocytes % 15.9 % (1.7-12.7); Neutrophils # 0.7 10*3/uL (1.4-7.4); Neutrophils % 38.1 % (38.7-73.9); Red Blood Count 2.28 MC/CUMM (3.8-5.5); Red Cell Distribution Width 14.6 % (9.3-17.3); White Blood Count 1.9 T/CUMM (4-12)
[2018-09-02 04:40] LABS: Calcium 8.1 MG/DL (8.5-10.1); Osmolality,Calculated 276.5 MOS/KG (273-304); Potassium 3.6 MMOL/L (3.5-5.1)
[2018-09-02 04:49] LABS: Platelet Count 32 T/CUMM (130-400)
[2018-09-02] MEDS: INSULIN REGULAR 100 UNIT/ML SUBCUT SCH ×2 (06:00→11:31)
[2018-09-02 06:08] LABS: Eosinophils 11 % (0-10); Hypochromasia 1+; Lymphocytes 50 % (20-55); Microcytosis 1+; Platelet Estimate Decreased; Polychromasia Few; Segmented Neutrophils 37 % (50-85); Total Cells Counted 100
[2018-09-02] MEDS ORDERED: MAGNESIUM SULF RIDER 2 GM in PREMIX 1 EACH IV PRN (07:31)
[2018-09-02] MEDS ORDERED: MAGNESIUM SULF RIDER 4 GM in PREMIX 1 EACH IV PRN (07:31)
[2018-09-02] MEDS: MULTIVITAMIN (CENTRUM) TABLET PO SCH (08:55)
[2018-09-02] MEDS: PANTOPRAZOLE 40 MG TABLET PO SCH (08:55)
[2018-09-02] MEDS: FOLIC ACID 0.4 MG TABLET PO SCH (08:55)
[2018-09-02] MEDS: FUROSEMIDE 40 MG TABLET PO SCH (08:56)
[2018-09-02] MEDS: RIFAXIMIN 550 MG TABLET PO SCH (08:56)
[2018-09-02] MEDS: ZINC SULFATE 220 MG CAPSULE PO SCH (08:56)
[2018-09-02] MEDS: BACITRACIN OINT 0.9 GM PACK TOP SCH (08:57)
[2018-09-02] MEDS: SPIRONOLACTONE 50 MG TABLET PO SCH (08:57)
[2018-09-02] MEDS: NICOTINE 14 MG/24 HR PATCH TRANSDERM SCH (08:58)
[2018-09-02] MEDS: INSULIN GLARGINE 100 UNIT/ML SUBCUT SCH (09:05)
[2018-09-02 10:52] VITALS: BP 92/55
[2018-09-02] MEDS: ERTAPENEM 1,000 MG in SODIUM CHLORIDE 0.9% 100 ML IV SCH (11:31)
== END 2018-09-02 15:30 | DRG 870 ==
LOC: N.ED 12:56 → N.EDINP 13:39 → SUATTDRO 13:39 → N.CC 14:40 → N.4E 08-17 11:21
PROVIDERS: ADMIT Internal Medicine; ATTEND Hospitalist

== ENCOUNTER 2018-09-16 15:23 | Inpatient (IN) ==
[2018-09-16 16:50] LABS: Basophils % 0.8 % (0.0-0.8); Eosinophils % 1.1 % (0.00-10.9); Hematocrit 27.1 VOL% (42.0-52.0); Hemoglobin 8.8 GM/DL (14.0-18.0); Immature Granulocytes % 3.4 %; Immature Granulocytes Absolute 0.12 #; Lymphocytes # 0.9 10*3/uL (1.4-4.0); Lymphocytes % 24.6 % (21.2-54.2); Mean Corpuscular HGB Conc 32.5 GM/DL (32-36); Mean Corpuscular Volume 99.6 FL (87-102); Mean Platelet Volume 11.5 FL (9.6-12.0); Monocytes % 12.3 % (1.7-12.7); Neutrophils % 57.8 % (38.7-73.9); Platelet Count 54 T/CUMM (130-400); Red Blood Count 2.72 MC/CUMM (3.8-5.5); Red Cell Distribution Width 15.2 % (9.3-17.3); White Blood Count 3.6 T/CUMM (4-12)
[2018-09-16] MEDS ORDERED: ONDANSETRON 4 MG/2 ML VIAL ONE (16:56)
[2018-09-16] MEDS ORDERED: ONDANSETRON 4 MG/2 ML VIAL IV STA (16:56)
[2018-09-16] MEDS ORDERED: METOCLOPRAMIDE 10 MG/2 ML VIAL IV STA (16:57)
[2018-09-16 17:06] LABS: INR 1.4; PT Patient Result 14.7 SECS; Partial Thromboplastin Time 28.5 SECS (0-40)
[2018-09-16 17:09] LABS: Platelet Estimate Decreased
[2018-09-16 17:10] LABS: Anisocytosis 3+; Burr Cells 1+; Macrocytosis 2+; Microcytosis 1+; Schistocytes 1+
[2018-09-16 17:11] LABS: Polychromasia Slight
[2018-09-16 17:18] LABS: Alanine Aminotransferase 21 U/L (16-61); Albumin 2.4 G/DL (3.4-5.0); Alkaline Phosphatase 162 U/L (45-117); Amylase 72 U/L (25-115); Aspartate Amino Transferase 31 U/L (0-37); Blood Urea Nitrogen 14 MG/DL (7-18); Calcium 8.2 MG/DL (8.5-10.1); Glucose 122 MG/DL (74-106); Osmolality,Calculated 280.4 MOS/KG (273-304); Total Protein 5.8 G/DL (6.4-8.3); Troponin I < 0.015 NG/ML (0.00-0.045)
[2018-09-16] MEDS ORDERED: ONDANSETRON 4 MG/2 ML VIAL IV PRN (18:05)
[2018-09-16] MEDS ORDERED: ACETAMINOPHEN 325 MG TABLET PO PRN (18:05)
[2018-09-16] MEDS ORDERED: PHENOL 1.4% THROAT SPRAY 177 ML BOTTLE PO PRN (18:09)
[2018-09-16] MEDS ORDERED: GLUCAGON 1 MG VIAL IM PRN (18:13)
[2018-09-16] MEDS ORDERED: DEXTROSE 50% 25 GM/50 ML VIAL IV PRN (18:13)
[2018-09-16 18:50] LABS: Apearance,Urine CLEAR (Clear); Bilirubin,Urine Negative (Negative); Blood, Urine Small mg/dL (Negative); Glucose,Urine (UA) Negative (Negative); Ketones,Urine Negative (Negative); Nitrite,Urine Negative (Negative); Protein,Urine Negative; RBC,Urine 42 /HPF (0-4); Urine Color Amber (Yellow); Urine Specific Gravity 1.015 (1.001-1.035); Urine Urobilinogen < 2.0 EU/DL (0.2-1.0); WBC,Urine 2 /HPF (0-6)
[2018-09-16] MEDS ORDERED: ALBUTEROL/IPRATROPIUM 3 ML NEB RESP TX PRN (19:00)
[2018-09-16 19:17] LABS: Barbiturates Screen,Urine Negative (Negative); Benzodiazepines Screen,Urine Negative (Negative); Cannabinoid Screen,Urine Negative (Negative); Opiate Screen,Urine Positive (Negative); Phencyclidine Screen,Urine Negative (Negative)
[2018-09-16] MEDS: INSULIN LISPRO 100 UNIT/ML SUBCUT SCH (22:34)
[2018-09-17] MEDS: LACTULOSE 20 GM/30 ML UDCUP PO SCH ×5 (00:33→23:11)
[2018-09-17] MEDS: MAGNESIUM OXIDE 400 MG TABLET PO SCH ×3 (00:33→21:11)
[2018-09-17] MEDS: RIFAXIMIN 550 MG TABLET PO SCH ×3 (00:33→21:11)
[2018-09-17 05:43] LABS: Basophils % 1.3 % (0.0-0.8); Eosinophils # 0.1 10*3/uL (0.0-0.87); Eosinophils % 2.2 % (0.00-10.9); Hematocrit 23.9 VOL% (42.0-52.0); Hemoglobin 7.9 GM/DL (14.0-18.0); Immature Granulocytes % 2.2 %; Immature Granulocytes Absolute 0.05 #; Lymphocytes # 0.9 10*3/uL (1.4-4.0); Lymphocytes % 37.9 % (21.2-54.2); Mean Corpuscular HGB Conc 33.1 GM/DL (32-36); Mean Corpuscular Volume 98.8 FL (87-102); Mean Platelet Volume 11.3 FL (9.6-12.0); Monocytes % 12.3 % (1.7-12.7); Neutrophils % 44.1 % (38.7-73.9); Red Blood Count 2.42 MC/CUMM (3.8-5.5); Red Cell Distribution Width 14.8 % (9.3-17.3); White Blood Count 2.3 T/CUMM (4-12)
[2018-09-17 05:45] LABS: Platelet Count 44 T/CUMM (130-400)
[2018-09-17 05:52] LABS: Calcium 7.9 MG/DL (8.5-10.1); Osmolality,Calculated 279.3 MOS/KG (273-304); Risk Ratio 2.07; Thyroid Stimulating Hormone 2.4 uIU/ml (0.358-3.74); VLDL CHOLESTEROL 11.6 MG/DL
[2018-09-17 06:53] LABS: Hypochromasia 2+; Platelet Estimate Decreased; Target Cells Few
[2018-09-17] MEDS ORDERED: MAGNESIUM SULF RIDER 2 GM in PREMIX 1 EACH IV PRN (07:26)
[2018-09-17] MEDS ORDERED: MAGNESIUM SULF RIDER 4 GM in PREMIX 1 EACH IV PRN (07:26)
[2018-09-17] MEDS ORDERED: SODIUM CHLORIDE 0.9% 1,000 ML IV PRN (08:20)
[2018-09-17] MEDS: INSULIN LISPRO 100 UNIT/ML SUBCUT SCH ×4 (09:10→21:11)
[2018-09-17] MEDS: MULTIVITAMIN (CENTRUM) TABLET PO SCH (09:12)
[2018-09-17] MEDS: PANTOPRAZOLE 40 MG TABLET PO SCH (09:12)
[2018-09-17] MEDS: TAMSULOSIN 0.4 MG CAPSULE PO SCH (09:12)
[2018-09-17] MEDS: ZINC SULFATE 220 MG CAPSULE PO SCH (09:12)
[2018-09-17] MEDS: oxyCODONE IR 5 MG TABLET PO PRN ×3 (09:12→21:12)
[2018-09-17] MEDS: FOLIC ACID 0.4 MG TABLET PO SCH (09:12)
[2018-09-17] MEDS: FUROSEMIDE 40 MG TABLET PO SCH ×2 (09:13→16:58)
[2018-09-17] MEDS: NICOTINE 14 MG/24 HR PATCH TRANSDERM SCH (09:13)
[2018-09-17] MEDS: SPIRONOLACTONE 100 MG TABLET PO SCH (09:17)
[2018-09-17] MEDS ORDERED: FUROSEMIDE 20 MG/2 ML VIAL IV ONE (14:30)
[2018-09-17] MEDS: FUROSEMIDE 20 MG/2 ML VIAL IV ONE ×2 (14:33→14:45)
[2018-09-17 20:23] LABS: Hematocrit 29.5 VOL% (42.0-52.0)
[2018-09-17 20:24] LABS: Hemoglobin 9.7 GM/DL (14.0-18.0)
[2018-09-18 06:09] LABS: Basophils % 0.6 % (0.0-0.8); Eosinophils # 0.1 10*3/uL (0.0-0.87); Eosinophils % 2.3 % (0.00-10.9); Hematocrit 28.6 VOL% (42.0-52.0); Hemoglobin 9.5 GM/DL (14.0-18.0); Immature Granulocytes % 3.1 %; Immature Granulocytes Absolute 0.11 #; Lymphocytes # 0.9 10*3/uL (1.4-4.0); Lymphocytes % 24.3 % (21.2-54.2); Mean Corpuscular HGB Conc 33.2 GM/DL (32-36); Mean Platelet Volume 10.6 FL (9.6-12.0); Neutrophils % 57.7 % (38.7-73.9); Red Blood Count 2.98 MC/CUMM (3.8-5.5); Red Cell Distribution Width 15.5 % (9.3-17.3); White Blood Count 3.5 T/CUMM (4-12)
[2018-09-18] MEDS: LACTULOSE 20 GM/30 ML UDCUP PO SCH ×3 (06:10→17:09)
[2018-09-18 06:16] LABS: Platelet Count 40 T/CUMM (130-400)
[2018-09-18 06:20] LABS: Calcium 7.8 MG/DL (8.5-10.1); Osmolality,Calculated 276.8 MOS/KG (273-304)
[2018-09-18 06:37] LABS: Hypochromasia Slight; Platelet Estimate Decreased; Polychromasia Few
[2018-09-18] MEDS ORDERED: POTASSIUM CHLORIDE 10 MEQ TABLET PO ONE (08:08)
[2018-09-18] MEDS: INSULIN LISPRO 100 UNIT/ML SUBCUT SCH ×4 (09:31→21:39)
[2018-09-18] MEDS: NICOTINE 14 MG/24 HR PATCH TRANSDERM SCH (10:01)
[2018-09-18] MEDS: RIFAXIMIN 550 MG TABLET PO SCH ×2 (10:04→21:41)
[2018-09-18] MEDS: ZINC SULFATE 220 MG CAPSULE PO SCH (10:04)
[2018-09-18] MEDS: TAMSULOSIN 0.4 MG CAPSULE PO SCH (10:04)
[2018-09-18] MEDS: SPIRONOLACTONE 100 MG TABLET PO SCH (10:04)
[2018-09-18] MEDS: FOLIC ACID 0.4 MG TABLET PO SCH (10:05)
[2018-09-18] MEDS: FUROSEMIDE 40 MG TABLET PO SCH ×2 (10:05→17:14)
[2018-09-18] MEDS: PANTOPRAZOLE 40 MG TABLET PO SCH (10:05)
[2018-09-18] MEDS: MAGNESIUM OXIDE 400 MG TABLET PO SCH ×2 (10:05→21:38)
[2018-09-18] MEDS: MULTIVITAMIN (CENTRUM) TABLET PO SCH (10:05)
[2018-09-18] MEDS ORDERED: TUBERCULIN SKIN TEST 0.1 ML SYRINGE INTRADERM ONE (10:17)
[2018-09-18] MEDS: oxyCODONE IR 5 MG TABLET PO PRN (17:09)
[2018-09-19] MEDS: LACTULOSE 20 GM/30 ML UDCUP PO SCH ×2 (00:24→05:58)
[2018-09-19] MEDS: oxyCODONE IR 5 MG TABLET PO PRN (00:28)
[2018-09-19] MEDS: NICOTINE 14 MG/24 HR PATCH TRANSDERM SCH (08:31)
[2018-09-19] MEDS: MAGNESIUM OXIDE 400 MG TABLET PO SCH (08:32)
[2018-09-19] MEDS: FUROSEMIDE 40 MG TABLET PO SCH (08:32)
[2018-09-19] MEDS: MULTIVITAMIN (CENTRUM) TABLET PO SCH (08:32)
[2018-09-19] MEDS: FOLIC ACID 0.4 MG TABLET PO SCH (08:32)
[2018-09-19] MEDS: RIFAXIMIN 550 MG TABLET PO SCH (08:32)
[2018-09-19] MEDS: PANTOPRAZOLE 40 MG TABLET PO SCH (08:32)
[2018-09-19] MEDS: TAMSULOSIN 0.4 MG CAPSULE PO SCH (08:32)
[2018-09-19] MEDS: ZINC SULFATE 220 MG CAPSULE PO SCH (08:32)
[2018-09-19] MEDS: SPIRONOLACTONE 100 MG TABLET PO SCH (08:33)
[2018-09-19] MEDS: INSULIN LISPRO 100 UNIT/ML SUBCUT SCH (08:33)
[2018-09-19 09:20] VITALS: BP 131/85
== END 2018-09-19 11:11 | DRG 442 ==
LOC: EDUNIT# → EDBD → N.ED 15:23 → SUATTDRO 18:04 → N.EDINP 18:04 → N.5E 19:23
PROVIDERS: ADMIT Internal Medicine; ATTEND Internal Medicine